=== PATIENT | male | born 1955 | race Caucasian/White ===

== ENCOUNTER → 2018-04-17 10:48 | Outpatient (REF) | payer OTHER, SELFPAY ==
[2018-04-17 12:43] LABS: COMMENT (LAB VIEW ONLY) 168.84 mg/dL; Microalb ug/mg Crea 5.6 ug/mg Cr
== END ==
LOC: NCHCN 10:48
PROVIDERS: PCP Family Medicine; Visit Provider Family Medicine
DX: E11.9 Type 2 diabetes mellitus without complications (principal)
CPT/HCPCS: 82043; 82570

== ENCOUNTER 2018-06-17 00:52 | Outpatient (CLI) | payer OTHER, SELFPAY ==
--- NOTE | 2018-06-17 08:51 | DI.RAD_ITS ---
SYMPTOM/DIAGNOSIS: CHRONIC NECK PAIN, M54.2 CERVICAL SPINE: Odontoid, AP and lateral and bilateral oblique views were obtained. There is normal alignment of the cervical spine. No acute fractures or subluxations are seen. There is mild narrowing of the C 5-6 and C 6-7 disc spaces. There are large flowing anterior vertebral osteophytes present throughout the cervical spine. There is mild narrowing of the neural foramen on the left from C 3-4 through C 6-7 and on the left at C 3-4. The odontoid is intact. The lateral masses are well aligned. The bones appear normally mineralized. IMPRESSION: Findings in the cervical spine raising the question of DISH. Degenerative disc disease cannot be excluded.
== END 2018-06-17 01:12 ==
PROVIDERS: PCP Family Medicine; Visit Provider Family Medicine
DX: M47.812 Spondylosis without myelopathy or radiculopathy, cervical region (principal); M54.2 Cervicalgia
CPT/HCPCS: 72050

== ENCOUNTER 2018-10-08 08:21 | Outpatient (CLI) | payer OTHER, SELFPAY ==
[2018-10-08 08:45] LABS: HCT 44.3 % (40.0-50.0); HGB 15.2 g/dL (13.5-17.5); Mean Corp. HGB Concentration 34.3 g/dL (32.0-36.0); Mean Corpuscular Volume 87.4 fL (80-95); Mean Platelet Volume 10.6 fL (8.0-11.0); Platelet Count 162 x1000/uL (130-400); RBC 5.07 m/cumm (4.50-6.00); RBC Distribution Width 13.6 % (11.8-14.1); White Blood Cell Count 8.61 k/cumm (4.4-10.8)
[2018-10-08 09:52] LABS: Hemoglobin A1C 7.6 % (4.5-6.2)
[2018-10-08 10:02] LABS: ALT 73 U/L (12-78); AST 48 U/L (15-37); Albumin 3.7 g/dL (3.4-5.0); Alkaline Phosphatase 104 U/L (46-116); Anion Gap 9.6 mmol/L (3-11); BUN 11 mg/dL (7-18); Bilirubin, Total 0.5 mg/dL (0.2-1.0); CO2 30.4 mmol/L (21.0-32.0); CREATININE 0.94 mg/dL (0.70-1.30); Calcium 9.1 mg/dL (8.5-10.1); Chloride 101 mmol/L (98-107); Cholesterol 104 mg/dL (50-200); Glucose 168 mg/dL (70-100); HDL Cholesterol 33 mg/dL (40-60); LDL CHOLESTEROL 45 mg/dL (<100); Potassium 3.7 mmol/L (3.5-5.1); Sodium 141 mmol/L (136-145); Total Protein 7.3 g/dL (6.4-8.2); Triglyceride 207 mg/dL (30-150)
[2018-10-08 10:18] LABS: FREE T4 0.88 ng/dL (0.76-1.46)
[2018-10-11 09:19] LABS: Thiamine (Vitamin B1), WB 121 nmol/L (70-180)
== END 2018-10-08 08:41 ==
PROVIDERS: PCP Family Medicine; Visit Provider Family Medicine
DX: E11.9 Type 2 diabetes mellitus without complications (principal); I10 Essential (primary) hypertension; R94.6 Abnormal results of thyroid function studies; E51.9 Thiamine deficiency, unspecified; K76.0 Fatty (change of) liver, not elsewhere classified
CPT/HCPCS: 36415; 80053; 80061; 83721; 85027; 83036; 84425; 84439; 84443

== ENCOUNTER 2019-01-02 05:36 | Outpatient (CLI) | payer OTHER, SELFPAY ==
[2019-01-02 10:03] LABS: Folate 5.4 ng/mL (8.6-20.0); Vitamin B12 320 pg/mL (193-986)
[2019-01-08 13:01] LABS: Testosterone, Total 229 ng/dL (240-950)
== END 2019-01-02 05:56 ==
LOC: LBO 05:36 → NCHCO 07:19
PROVIDERS: PCP Family Medicine; Visit Provider Family Medicine
DX: E53.8 Deficiency of other specified B group vitamins (principal); E29.1 Testicular hypofunction
CPT/HCPCS: 36415; 84402; 84403; 82607; 82746

== ENCOUNTER 2019-01-09 01:54 | Outpatient (CLI) | payer OTHER, SELFPAY ==
--- NOTE | 2019-01-09 09:00 | DIABASSESS_ITS ---
DESCRIPTION/ASSESSMENT: Yury Hoffmann presents with his for diabetes self management to learn to use Bydureon pen. He has had difficulty getting GLP1 inhibitor through insurances and this is the best option for him at this time. A1c 8.9 INTERVENTION: Instructed both of them on the possible side effects of Bydureon. He has reviewed the literature and agrees to proceed with this injection. His , Pily, reviewed and followed instructions for procedure for injection without difficulty. They know to call with questions or concerns. ACTION PLAN: They will follow directions to inject Bydureon every 7 days. Individual DSME/T less than 30 minutes. TIME IN: 904 OUT: 924 No DM group education series being offered at this time.
== END 2019-01-09 02:14 ==
PROVIDERS: PCP Family Medicine; Visit Provider Dietitian, Registered
DX: E11.9 Type 2 diabetes mellitus without complications (principal); Z71.3 Dietary counseling and surveillance

== ENCOUNTER 2019-02-09 05:16 | Outpatient (CLI) | payer OTHER, SELFPAY ==
[2019-02-09 09:07] LABS: Vitamin B12 598 pg/mL (193-986)
[2019-02-11 12:32] LABS: Testosterone, Total 306 ng/dL (240-950)
== END 2019-02-09 05:36 ==
PROVIDERS: PCP Family Medicine; Visit Provider Family Medicine
DX: E29.1 Testicular hypofunction (principal); E53.8 Deficiency of other specified B group vitamins
CPT/HCPCS: 36415; 84403; 82607; 82746

== ENCOUNTER 2019-03-16 09:14 | Outpatient (REF) | payer OTHER, SELFPAY | END 2019-03-16 09:34 | LOC: NCHCN 09:14 | PROVIDERS: PCP Family Medicine; Visit Provider Family Medicine | DX: E11.9 Type 2 diabetes mellitus without complications (principal) | CPT/HCPCS: 82043; 82570 ==

== ENCOUNTER 2019-03-30 01:37 | Outpatient (CLI) | payer OTHER, SELFPAY ==
[2019-03-30] MEDS: Albuterol HFA 18 GM 200 PUFF INH IH (11:14)
[2019-03-30] MEDS: Inhaler, Assist Device 1 EACH MC (11:14)
--- NOTE | 2019-04-01 11:30 | PFT_ITS ---
Date: March 30, 2019 Requesting Provider: Dr. Lora Glasgow Spirometry: Mild obstructive airways disease with no significant bronchodilator response. Lung volumes: No evidence of restriction. Diffusion capacity: Normal. Airways resistance: Normal. IMPRESSION: Mild obstructive airways disease with no significant bronchodilator response. Clinical correlation recommended. When this study was compared to previous ones from 10/12/2005, the patient has a total of 370 cc. decline in FVC; FEV-1 has remained stable.
== END 2019-03-30 01:57 ==
PROVIDERS: PCP Family Medicine; Visit Provider Family Medicine
DX: J44.9 Chronic obstructive pulmonary disease, unspecified (principal); R06.09 Other forms of dyspnea; F17.220 Nicotine dependence, chewing tobacco, uncomplicated
CPT/HCPCS: 94060; 94150; 94726; 94729

== ENCOUNTER 2019-04-17 16:35 | Observation (INO) | payer OTHER, SELFPAY ==
[2019-04-17] VITALS (45 sets, daily range): BP systolic 116–155; BP diastolic 86–104; PULSE 85–102; RESP 9–19; TEMP 36.6–37.4; O2SAT 92–98
--- NOTE | 2019-04-17 17:05 | DI.RAD_ITS ---
SYMPTOM/DIAGNOSIS: CONFUSION, SEIZURE LIKE ACTIVITY PA AND LATERAL CHEST: Comparison is made with 25 February 2018 The heart size is normal. The lungs are well inflated and clear. No infiltrate, effusion, mass or pneumothorax is seen. IMPRESSION: Negative chest x-ray.
--- NOTE | 2019-04-17 17:06 | DI.CT_ITS ---
SYMPTOM/DIAGNOSIS: LEFT SIDED NUMBNESS, BODY SHAKING, CONFUSION NONCONTRAST HEAD CT: Comparison is made with 25 February 2018. There is a large area of encephalomalacia in the right frontal region. There is mild atrophy. There is patchy low density in the white matter consistent with chronic microvascular disease. The ventricles are normal in size. There is no acute hemorrhage, acute infarct or skull fracture. Mucous retention is seen at the floors of the maxillary sinuses. The mastoid air cells appear clear. The orbits are unremarkable. IMPRESSION: Old right frontal infarct. No acute abnormality.
--- NOTE | 2019-04-17 17:11 | W.ED.GENAD ---
Discharge Plan Disposition Patient Disposition: [facility] Discharge Details Chief Complaint: CVA/TIA Clinical Impression: Seizure, TIA (transient ischemic attack), Hypomagnesemia Admit Date/Time: 04/17/19 20:03 Admit Provider: Manish Gregory Attending Provider: Manish Gregory Primary Care Provider: Lora Glasgow ED Provider: Holland Mendez Discharge Data Discharge Date/Time-TO BE ENTERED AT DEPARTURE: 04/17/19 21:37 Medical Decision Making 20:12 This is a chronically ill 63-year-old male presented to the emergency department with symptoms concerning for seizure-like activity. TIA also on the differential. His CT head along with CTA head neck was read as negative for acute ICH or CVA. Labs demonstrate a hypo-mag at 1.3. Magnesium 2 g IV given. He has no EKG changes and his troponin is negative. The remainder of his labs are unremarkable. As mentioned above his symptoms are concerning for seizure and he does have evidence of a prior right sided frontal lobe infarct chronic in nature similar to his previous CT scan in February. I discussed case with Dr. Saldivar from [facility] [place] who agrees that based on the fact his symptoms are nearly identical to those back in February seizure is more likely. He would recommend starting anticonvulsant Keppra and admitting to telemetry for observation. Unable to obtain MRI with contrast or echo tomorrow as they are unavailable. I discussed case with hospitalist here at [facility] who will admit. HPI General Date/Time Provider Initiated Documentation: 04/17/19 16:50. HPI Narrative: Patient is a 63-year-old male with a significant past medical history for question TIA, coronary artery disease, COPD, diabetes type 2, hypertension, hyperlipidemia, 1 pack/day smoker and obesity who presents to the emergency department with abrupt onset of left-sided facial tingling and numbness followed by periods of confusion and body shaking reported by his roughly 45 minutes prior to arrival. Symptoms lasted for roughly 2 to 4 minutes. Patient had no postictal. Patient denies any current symptoms. He had no chest pain however did report some shortness of breath while his symptoms were occurring. He states that he has full recollection of the event with the exception of roughly 1 to 2 minutes. Patient's states that his eyes rolled in the back of his head during the peak of his symptoms. He had mumbled speech at that time. No urinary or fecal incontinence. Patient has had no recent illness or fever. He denies any neck pain or stiffness. Related Data Home Medications Medication Instructions Recorded Confirmed aspirin [Aspir-81] 81 mg PO DAILY 03/20/13 04/17/19 metoprolol succinate [Toprol XL] 200 mg PO DAILY 03/20/13 04/17/19 Dexilant 30 mg PO DAILY tab-cap 09/02/17 04/17/19 atorvastatin 40 mg PO DAILY 02/25/18 04/17/19 fluoxetine 40 mg PO DAILY 02/25/18 04/17/19 hydrocodone-acetaminophen [Vicodin 2 ea PO Q6H PRN PRN 02/25/18 04/17/19 HP] metformin 1,000 mg PO DAILY 02/25/18 04/17/19 albuterol sulfate 90 mcg/actuation 2 puff INHALATION Q6H PRN gm 07/30/18 04/17/19 aerosol inhaler betamethasone dipropionate 0.05 % 1 applic TP BID PRN 07/30/18 04/17/19 topical cream cholecalciferol (vitamin D3) 2,000 2,000 unit PO DAILY 07/30/18 04/17/19 unit capsule cyanocobalamin (vitamin B-12) 2,000 mcg PO DAILY 07/30/18 04/17/19 2,000 mcg tablet morphine 15 mg tablet,extended 15 mg PO DAILY tab 07/30/18 04/17/19 release pregabalin 100 mg capsule 100 mg PO BID 07/30/18 04/17/19 ranitidine HCl 300 mg capsule 300 mg PO DAILY 07/30/18 04/17/19 exenatide microspheres [Bydureon] 2 mg SUBCUT QWEEK 04/17/19 04/17/19 duvrjdaqpxs-johvedrwt-[id number] 1 inh INHALATION DAILY 04/17/19 04/17/19 [Trelegy Ellipta] folic acid 1 mg PO DAILY 04/17/19 04/17/19 Allergies Allergy/AdvReac Type Severity Reaction Status Date / Time hydrochlorothiazide Allergy Mild Unverified 04/17/19 16:49 lisinopril Allergy Mild Unverified 04/17/19 16:49 Penicillins Allergy Unknown as child Unverified 04/17/19 16:49 unsure of reaction General Stated Complaint: CVA/TIA RAMILA: 2 Review of Systems Constitutional Denies anorexia, Denies body ache(s), Denies chills, Denies fatigue, Denies fever(s), Denies headache(s), Denies lethargy, Denies malaise, Denies night sweats, Denies weakness and Denies weight gain Eyes Denies blind spots, Denies blurry vision, Denies change in vision, Denies diplopia and Denies loss of vision ENT Denies vertigo, Denies dizziness, Denies headache(s) and Denies neck pain Cardiovascular Denies chest pain, Denies diaphoresis, Denies syncope, Denies edema, Denies palpitations and Denies dyspnea Respiratory Denies cough, Denies dyspnea and Denies wheezing Gastrointestinal Denies abdominal pain Genitourinary Denies dysuria and Denies flank pain Musculoskeletal Denies joint swelling, Denies muscle weakness, Denies neck pain, Reports numbness, Denies stiffness and Reports tingling Integumentary/Breasts Denies rash Neurologic Reports abnormal speech, Denies vertigo, Denies dizziness, Denies syncope, Denies headache(s), Reports focal weakness, Denies loss of vision, Reports numbness, Reports sensory deficit, Reports tingling, Reports paresthesias and Denies weakness Endocrine Denies fatigue and Denies palpitations Allergic/Immunologic Denies wheezing [facility] Medical History Barretts esophagus (Chronic) CAD (coronary artery disease) (Chronic) COPD (chronic obstructive pulmonary disease) (Chronic) Depression (Chronic) Diabetes mellitus (Chronic) Elevated TSH (Acute) Fatty infiltration of liver (Chronic) Hip pain, right (Acute) HTN (hypertension) (Chronic) Hx of adenomatous colonic polyps (Acute) Hx of deep venous thrombosis (Acute) Hx of gastric ulcer (Acute) Hyperlipidemia (Chronic) Insomnia (Chronic) Low testosterone (Acute) Lumbar back pain (Chronic) Morbid obesity (Chronic) Neck pain (Acute) EVIE (obstructive sleep apnea) (Chronic) TIA (transient ischemic attack) (Acute) Tobacco use (Chronic) Vitamin B1 deficiency (Acute) Surgical History Colonoscopy - MAC (09/30/17) EGD - MAC (09/30/17) H/O vasectomy (Acute) Post-laminectomy syndrome (Acute) S/P repair of hydrocele (Acute) Social History Smoking/Tobacco Use Status: Current every day Alcohol Intake: current Alcohol Intake frequency: a few times a week Drug use: Occasionally Substance use type: marijuana Household members: spouse Housing: apartment Number of Children: 3 What type of physical activity do you participate in: none Do you feel safe at home: Yes Do you feel safe in your relationship?: Yes Exam Const General: cooperative and no acute distress Nutritional Appearance: obese Orientation: alert, awake and oriented x3 HENMT Head: normal to inspection Mouth: oral mucosae normal Throat: posterior oropharynx normal and uvula midline Eyes General: appearance normal, both eyes and all related structures Visual Ramos: normal visual ramos by confrontation Pupils: PERRL EOM: EOM intact bilaterally Neck Neck: normal visual inspection, full ROM, no lymphadenopathy and no meningeal signs Carotids: normal carotid upstroke Resp Effort & Inspection: normal respiratory effort Auscultation: clear to auscultation bilaterally Cardio Jugular venous pressure: no JVD Rate: regular rate Rhythm: regular rhythm Heart Sounds: S1 normal and S2 normal Pulses: normal peripheral pulses GI Inspection: normal to inspection Palpation: soft Skin General skin exam: no rashes or lesions noted Neuro Cranial Nerves: CN's II-XI intact bilaterally, PERRL, accommodation normal, EOM intact bilaterally, no nystagmus, facial strength normal, tongue midline and hearing normal Cognition: normal cognition Speech: speech normal Motor: muscle tone normal throughout Sensory Exam: no sensory deficits noted Extrem General: normal to inspection and full ROM Course Vital Signs Temperature 36.6 C 04/17/19 16:41 Pulse 88 04/17/19 16:41 Respiratory Rate 16 04/17/19 16:41 Blood Pressure 147/89 H 04/17/19 16:41 Pulse Oximetry 97 04/17/19 16:41 Temperature 36.6 C 04/17/19 16:41 Temperature Source Temporal Artery Scan 04/17/19 16:41 Pulse 88 04/17/19 16:41 Respiratory Rate 16 04/17/19 16:41 Respiratory Effort Non-Labored 04/17/19 16:48 Blood Pressure 147/89 H 04/17/19 16:41 Blood Pressure Position Supine 04/17/19 16:41 Pulse Oximetry 97 04/17/19 16:41 Oxygen Delivery Method Room Air 04/17/19 16:41 Oxygen Flow Rate 0 04/17/19 16:41 Pain Level 0 04/17/19 16:41
[2019-04-17 17:21] LABS: Abs Immature Grans 0.01 k/cumm (0.0-0.09); Absolute Basophil Count 0.05 k/cumm (0.0-0.2); Absolute Eosinophil Count 0.13 k/cumm (0.0-0.7); Absolute Lymphocyte Count 2.66 k/cumm (1.2-3.4); Absolute Monocyte Count 0.65 k/cumm (0.11-0.7); Absolute Neutrophil Count 3.59 k/cumm (1.2-6.7); Basophils % 0.7; Eosinophils % 1.8; HCT 41.3 % (40.0-50.0); HGB 13.9 g/dL (13.5-17.5); Immature Grans % 0.1; Lymphocytes % 37.5; Mean Corp. HGB Concentration 33.7 g/dL (32.0-36.0); Mean Corpuscular Hemoglobin 27.1 pg (27.0-33.0); Mean Corpuscular Volume 80.5 fL (80-95); Mean Platelet Volume 9.9 fL (8.0-11.0); Monocytes % 9.2; Neutrophils % 50.7; Platelet Count 192 x1000/uL (130-400); RBC 5.13 m/cumm (4.50-6.00); RBC Distribution Width 14.5 % (11.8-14.1); White Blood Cell Count 7.09 k/cumm (4.4-10.8)
--- NOTE | 2019-04-17 17:24 | DI.VRAD_ITS ---
EXAM: CT Head Without Contrast EXAM DATE/TIME: 04/17/2019 5:07 PM CLINICAL HISTORY: 63 years old, male; Other: Confusion, seizure-like activity TECHNIQUE: Imaging protocol: Computed tomography of the head without contrast. Other technique: STROKE PROTOCOL was implemented. COMPARISON: CT HEAD WITHOUT STROKE PROTOCOL 02/25/2018 4:38 PM FINDINGS: Brain: Old right frontal cortical infarct. This also involves the anterior aspect of the right insular cortex. There is nonspecific white matter disease, likely related to chronic ischemic demyelination.No intracranial hemorrhage is seen. No acute arterial territory stroke is noted. Ventricles: Normal. No ventriculomegaly. Bones/joints: Unremarkable. No acute fracture. Sinuses: Mucosal thickening in the bilateral maxillary sinuses. No air-fluid levels. Remaining paranasal air sinuses are normal. Mastoid air cells: Visualized mastoid air cells are well aerated. No mastoid effusion. Soft tissues: Unremarkable. IMPRESSION: 1. Old right frontal cortical infarct. 2. No acute finding ASSESSMENT: ASPECTS (Ayla Stroke Program Early CT Score) is 10 Dictated and Authenticated by: Reynold Jara MD. Ordering:JOSSELIN Lino MD
[2019-04-17 17:37] LABS: ALT 46 U/L (16-63); AST 34 U/L (15-37); Albumin 3.5 g/dL (3.4-5.0); Alkaline Phosphatase 83 U/L (46-116); Anion Gap 9.1 mmol/L (3-11); BUN 10 mg/dL (7-18); Bilirubin, Total 0.5 mg/dL (0.2-1.0); CO2 29.9 mmol/L (21.0-32.0); CREATININE 0.97 mg/dL (0.70-1.30); Calcium 8.2 mg/dL (8.5-10.1); Chloride 103 mmol/L (98-107); Glucose 109 mg/dL (70-100); Magnesium 1.3 mg/dL (1.8-2.4); Potassium 3.7 mmol/L (3.5-5.1); Sodium 142 mmol/L (136-145); Total Protein 7.2 g/dL (6.4-8.2)
[2019-04-17 17:39] LABS: Troponin I < 0.05 ng/mL (0.00-0.06)
--- NOTE | 2019-04-17 17:41 | DI.VRAD_ITS ---
EXAM: XR Chest, 2 Views EXAM DATE/TIME: 04/17/2019 5:07 PM CLINICAL HISTORY: 63 years old, male; Other: Confusioin, seizure like activity TECHNIQUE: Imaging protocol: XR of the chest, 2 views. COMPARISON: CR CHEST 2 VIEWS PA,LAT 02/25/2018 4:50 PM FINDINGS: Lungs: Unremarkable. No consolidation. Pleural space: Unremarkable. No pleural effusion. No pneumothorax. Heart/Mediastinum: Unremarkable. No cardiomegaly. Bones/joints: Unremarkable. IMPRESSION: No acute findings. Dictated and Authenticated by: Reynold Jara MD. Ordering:JOSSELIN Lino MD
[2019-04-17] MEDS: Normal Saline Flush 10 ML SYR IVP (18:33)
[2019-04-17] MEDS: MAGNESIUM SULFATE 2 GM/50 ML BAG IVPB ×2 (18:33→23:39)
--- NOTE | 2019-04-17 18:40 | DI.CT_ITS ---
SYMPTOM/DIAGNOSIS: LEFT SIDED FACIAL NUMBNESS, LOC, CONFUSION CT ANGIOGRAPHY OF THE HEAD AND NECK: CT angiography was performed with multi slice acquisition and multi planar and 3D reconstruction. Common carotid arteries show a normal diameter. There is mild calcification at the common carotid bulbs and proximal internal and external carotid arteries. There is mild dilatation of the proximal left internal carotid artery. There is no evidence of significant stenosis. The vertebral arteries are normal in diameter. The [place] vasculature appears intact. A large old right frontal infarct is again noted. IMPRESSION: Mild dilatation of the proximal left internal carotid artery. No evidence of occlusion, significant stenosis or dissection in the head or neck.
[2019-04-17] MEDS: Omnipaque 350 MG/ML 100 ML BTL IJ (19:05)
--- NOTE | 2019-04-17 19:17 | DI.VRAD_ITS ---
EXAM: CT Angiography Head With Contrast EXAM DATE/TIME: 04/17/2019 6:41 PM CLINICAL HISTORY: 63 years old, male; Patient HX: Left-sided facial numbness, loc, confusion TECHNIQUE: Imaging protocol: Computed tomography angiography of the head with intravenous contrast. 3D rendering: MIP reconstructed images were created and reviewed. COMPARISON: CT HEAD FOR STROKE PROTOCOL 04/17/2019 5:16 PM FINDINGS: Right internal carotid artery: Minimal atherosclerosis at the right cavernous internal carotid artery without hemodynamic sequela. Right anterior cerebral artery: Unremarkable. No occlusion or significant stenosis. No aneurysm. Right middle cerebral artery: Unremarkable. No occlusion or significant stenosis. No aneurysm. Right posterior cerebral artery: Unremarkable. No occlusion or significant stenosis. No aneurysm. Right vertebral artery: Unremarkable. No occlusion or significant stenosis. No aneurysm. Left internal carotid artery: Minimal atherosclerosis at the left cavernous internal carotid artery without hemodynamic sequela. Left anterior cerebral artery: Unremarkable. No occlusion or significant stenosis. No aneurysm. Left middle cerebral artery: Unremarkable. No occlusion or significant stenosis. No aneurysm. Left posterior cerebral artery: Unremarkable. No occlusion or significant stenosis. No aneurysm. Left vertebral artery: Unremarkable. No occlusion or significant stenosis. No aneurysm. Basilar artery: Unremarkable. No occlusion or significant stenosis. No aneurysm. HEAD: Brain: Old right frontal cortical infarct. IMPRESSION: No significant stenosis of the vessels. EXAM: CT Angiography Neck With Contrast EXAM DATE/TIME: 04/17/2019 6:41 PM CLINICAL HISTORY: 63 years old, male; Patient HX: Left-sided facial numbness, loc, confusion TECHNIQUE: Imaging protocol: Computed tomographic angiography images of the neck with intravenous contrast using CT angiography protocol. 3D rendering: MIP reconstructed images were created and reviewed. COMPARISON: CT HEAD FOR STROKE PROTOCOL 04/17/2019 5:16 PM FINDINGS: VASCULATURE: Right common carotid artery: Unremarkable. No stenosis. No dissection or occlusion. Right internal carotid artery: Minimal atherosclerosis at the origin of the right internal carotid artery without hemodynamic sequela. Right external carotid artery: Unremarkable. No occlusion or stenosis of the origin. Right vertebral artery: Unremarkable. No stenosis. No dissection or occlusion. Left common carotid artery: Unremarkable. No stenosis. No dissection or occlusion. Left internal carotid artery: Minimal atherosclerosis at the origin of the left internal carotid artery without hemodynamic sequela. Aneurysmal dilation of the proximal left internal carotid artery up to 1.6 cm. Left external carotid artery: Minimal atherosclerosis at the origin of the left external carotid artery without hemodynamic sequela. Left vertebral artery: Up to 20% stenosis of the origin of the left vertebral artery. Subclavian arteries: Minimal atherosclerosis at the origin of the right subclavian artery without hemodynamic sequela. Minimal atherosclerosis at the origin of the left subclavian artery without hemodynamic sequela. NECK: Bones/joints: No acute fracture. Soft tissues: Normal. No significant soft tissue swelling. IMPRESSION: 1. 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 2. No significant stenosis in the vessels. COMMENT: Reference per NASCET criteria for degree of stenosis: Mild: less than 50% stenosis. Moderate: 50-69% stenosis. Severe: 70-94% stenosis. Near occlusion: 95-99% stenosis. Dictated and Authenticated by: Reynold Jara MD. Ordering:JOSSELIN Lino MD
--- NOTE | 2019-04-17 19:45 | NUR.NOTE ---
sandwich provided with water Nursing Note:
[2019-04-17] MEDS: levETIRAcetam 250 MG TAB 1000 MG PO (20:23)
[2019-04-17] MEDS: Normal Saline 1,000 ML 85 ML IV (21:00)
[2019-04-18] VITALS (7 sets, daily range): BP systolic 123–163; BP diastolic 91–108; PULSE 80–89; RESP 16–18; TEMP 36.3–37.1; O2SAT 94–96
--- NOTE | 2019-04-18 00:02 | HPE_ITS ---
Date of service: 04/17/19 Time of Service: 23:58 Assessment and Plan (1) Seizure: Current visit: Yes Status: Acute begin Keppra, he was loaded w/ 1000 mg and now will be on Keppra 500 mg BID; no EEG is available on the weekend, however further outpatient evaluation can be obtained upon discharge and should include EEG, neurology follow up and MRI of brain. (2) History of CVA (cerebrovascular accident): Current visit: Yes Status: Acute patient is already on a statin and take ASA 81 mg daily. I will check his A1c and lipid profile to assess control of his DM and his cholesterol but will continue his current regimen for now and leave it up to his PCP and neurology to make any changes as an outpatient. (3) Diabetes mellitus: Current visit: No Status: Chronic continue his home regimen for now. check A1c in the a.m.; will monitor his glucos AC/HS and cover w/ low dose sliding scale Novolog. Qualifiers: Diabetes mellitus complication status: without complication Diabetes mellitus termite exterminator insulin use: without termite exterminator use Diabetes mellitus type: type 2 Qualified Code(s): E11.9 - Type 2 diabetes mellitus without complications (4) Hypomagnesemia: Current visit: Yes Status: Acute patient given parenteral magnesium in ER and repeat dose given on admis ramiro. will start oral replacement in the a.m. and repeat his levels in a.m. (5) HTN (hypertension): Current visit: No Status: Chronic continue home meds of Toprol XL Qualifiers: Hypertension type: essential hypertension Qualified Code(s): I10 - Ess ential (primary) hypertension (6) Barretts esophagus: Current visit: No Status: Chronic continue home meds of Dexilant and Ranitidine History of Present Illness Chief Complaint: seizure Narrative: 63-year-old male with a history of type 2 diabetes mellitus, hypertension, COPD, hyperlipidemia, chronic back pain due to DJD presents with recurrent seizure-like symptoms. He says this is been going on 5 or 6 times over the past year. He will develop left facial quivering that will last for 3 to 4 minutes and today it progressed into an episode of sonorous respirations with loss of consciousness and generalized jerking of his arms and legs not associated with any urinary or bowel incontinence and not associated with any biting of his lips or tongue. Says he was at home tonight watching TV while his was preparing dinner around 4:30 PM when this began. Says the episode was witnessed by his and according to his lasted about 2 to 4 minutes. This is followed by amnestic period afterwards. He states he is been evaluated by his primary care provider Dr. Lawrence was done a work-up for TIA/CVA. He has had CT scans of the brain as well as carotid ultrasound and echocardiograms in the past. Noncontrast CT scan of the brain dating back to February 25, 2018 demonstrated large area of encephalomalacia involving the right frontal parietal lobe consistent with an old infarct along with cerebral atrophy and small vessel ischemic disease. Carotid ultrasound dated March 06, 2018 showed no significant stenosis. Echocardiogram dated March 14, 2018 demonstrated mild LVH with normal left ventricular systolic function with an ejection fraction of 55 to 60%. RV size and function was normal. Today's work-up in the emergency room include a noncontrast CT scan of the brain that again demonstrated old right frontal cortical infarct. But no acute findings. CT angiogram of the head with contrast as well as the neck was performed and showed no significant stenosis of the cervical or intracerebral vessels. Mr. Holland Mendez, physician insurance claims assistant in the emergency room, spoke with Dr. Saldivar from [facility] neurology regarding th is patient's case. And concurred that the patient's symptoms most likely is secondary to seizures probably related to his old right sided frontal infarct. He recommended initiation of antiepileptic drug Keppra and admitting the patient overnight on telemetry for observation. He also recommend following up with a MRI of the brain with contrast however this will be unavailable over the weekend will have to be scheduled as an outpatient. Patient is insisting that he will be leaving the hospital in the morning and only agreed to stay overnight because he thought he was getting the MRI scan tomorrow. Review of Systems Constitutional Reports system reviewed and no additional complaints, except as docu [facility] Medical History Barretts esophagus (Chronic) CAD (coronary artery disease) (Chronic) COPD (chronic obstructive pulmonary disease) (Chronic) Depression (Chronic) Diabetes mellitus (Chronic) Elevated TSH (Acute) Fatty infiltration of liver (Chronic) Hip pain, right (Acute) HTN (hypertension) (Chronic) Hx of adenomatous colonic polyps (Acute) Hx of deep venous thrombosis (Acute) Hx of gastric ulcer (Acute) Hyperlipidemia (Chronic) Insomnia (Chronic) Low testosterone (Acute) Lumbar back pain (Chronic) Morbid obesity (Chronic) Neck pain (Acute) EVIE (obstructive sleep apnea) (Chronic) TIA (transient ischemic attack) (Acute) Tobacco use (Chronic) Vitamin B1 deficiency (Acute) Surgical History Colonoscopy - MAC (09/30/17) EGD - MAC (09/30/17) H/O vasectomy (Acute) Post-laminectomy syndrome (Acute) S/P repair of hydrocele (Acute) Social History Smoking/Tobacco Use Status: Current every day Alcohol Intake: current Alcohol Intake frequency: a few times a week Drug use: Occasionally Substance use type: marijuana Household members: spouse Housing: apartment Number of Children: 3 What type of physical activity do you participate in: none Do you feel safe at home: Yes Do you feel safe in your relationship?: Yes Meds Home Medications Medication Instructions Recorded Confirmed Type aspirin [Aspir-81] 81 mg PO DAILY 03/20/13 04/17/19 History metoprolol succinate [Toprol XL] 200 mg PO DAILY 03/20/13 04/17/19 History Dexilant 30 mg PO DAILY tab-cap 09/02/17 04/17/19 History atorvastatin 40 mg PO DAILY 02/25/18 04/17/19 History fluoxetine 40 mg PO DAILY 02/25/18 04/17/19 History hydrocodone-acetaminophen [Vicodin 2 ea PO Q6H PRN PRN 02/25/18 04/17/19 History HP] metformin 1,000 mg PO DAILY 02/25/18 04/17/19 History albuterol sulfate 90 mcg/actuation 2 puff INHALATION Q6H PRN gm 07/30/18 04/17/19 History aerosol inhaler betamethasone dipropionate 0.05 % 1 applic TP BID PRN 07/30/18 04/17/19 History topical cream cholecalciferol (vitamin D3) 2,000 2,000 unit PO DAILY 07/30/18 04/17/19 History unit capsule cyanocobalamin (vitamin B-12) 2,000 mcg PO DAILY 07/30/18 04/17/19 History 2,000 mcg tablet morphine 15 mg tablet,extended 15 mg PO DAILY tab 07/30/18 04/17/19 History release pregabalin 100 mg capsule 100 mg PO BID 07/30/18 04/17/19 History ranitidine HCl 300 mg capsule 300 mg PO DAILY 07/30/18 04/17/19 History exenatide microspheres [Bydureon] 2 mg SUBCUT QWEEK 04/17/19 04/17/19 History [id number] 1 inh INHALATION DAILY 04/17/19 04/17/19 History [Trelegy Ellipta] folic acid 1 mg PO DAILY 04/17/19 04/17/19 History Allergies Allergy/AdvReac Type Severity Reaction Status Date / Time hydrochlorothiazide Allergy Mild Unverified 04/17/19 16:49 lisinopril Allergy Mild Unverified 04/17/19 16:49 Penicillins Allergy Unknown as child Unverified 04/17/19 16:49 unsure of reaction Exam Const General: cooperative, no acute distress and well groomed Nutritional Appearance: well nourished and overweight Orientation: alert, awake and oriented x3 HENMT Head: normal to inspection, no palpable skull fracture, normocephalic and atraumatic Ears: external ears normal and TM's normal bilaterally General nose exam: external nose normal, nares normal and no nasal discharge Face and sinus: normal facial exam, sinuses nontender and face symmetric Mouth: oral mucosae normal, lip normal, tongue normal, oropharynx normal and moist mucous membranes Teeth and gingiva: dentures (upper dentures only) Throat: posterior oropharynx normal and uvula midline Eyes General: appearance normal, both eyes and all related structures Visual Ramos: normal visual ramos by confrontation Alignment and Position: alignment normal Periorbital: periorbital findings normal Eyelids: eyelids normal Conjunctivae: conjunctivae normal Sclera: sclerae normal Cornea: corneas normal Pupils: PERRL, normal by confrontation and accommodation normal EOM: EOM intact bilaterally Direct ophthalmoscopy: normal light reflex, no photophobia, no papilledema, fundi normal bilaterally and anterior chamber normal Neck Neck: normal visual inspection, full ROM, no lymphadenopathy, trachea midline and supple Thyroid: thyroid normal Carotids: normal carotid upstroke Lymphatic: no lymphadenopathy noted Chest Chest: normal inspection of the chest and normal palpation of entire chest wall Resp Effort & Inspection: normal respiratory effort and able to speak in complete sentences Auscultation: clear to auscultation bilaterally Percussion: percussion normal Cardio Jugular venous pressure: no JVD Palpation: normal PMI Rate: regular rate Rhythm: regular rhythm Heart Sounds: S1 normal, S2 normal and normal, physiologic split S2 Pulses: normal peripheral pulses GI Inspection: normal to inspection Palpation: soft, no hepatosplenomegaly and nontender Percussion: normal to percussion Auscultation: normal bowel sounds Skin General skin exam: no rashes or lesions noted, elasticity normal and turgor normal Lesions: no lesions Rashes: no rashes Trauma: no lacerations or abrasions Hair: normal Nails: normal Neuro General: alert, awake, oriented x3, moves all extremities and no focal motor deficits Cranial Nerves: CN's II-XI intact bilaterally, PERRL, accommodation normal, EOM intact bilaterally, no nystagmus, facial strength normal, tongue midline, gag reflex normal, hearing normal, able to rotate head bilaterally, able to elevate shoulders bilaterally and Symmetric palate elevation Cognition: normal cognition Speech: speech normal Motor: muscle tone normal throughout, strength 5/5 throughout, no pronator drift, no movement abnormalities noted and no fasciculations Sensory Exam: no sensory deficits noted Plantar Reflexes: Downgoing: bilateral Pupils: Normal pupillary reactivity/response: bilateral Extrem General: normal to inspection, full ROM, normal capillary refill, no joint enlargement, no clubbing, cyanosis or edema and no calf tenderness bilaterally Psych Appearance: grossly normal Mental Status: mental status grossly normal Speech and Movement: speech and movement normal Mood: congruent mood Affect: normal affect Attitude: cooperative Thought Process: normal Thought Content: normal Insight: insight good Judgment: judgment good Results Imaging Imaging Studies: CT angiogram of brain and neck: HEAD: Brain: Old right frontal cortical infarct. IMPRESSION: No significant stenosis of the vessels. Labs : 04/17/19 17:10 04/17/19 17:10 Laboratory Results - last 24 hr 04/17/19 04/17/19 17:10 17:10 WBC 7.09 RBC 5.13 Hgb 13.9 Hct 41.3 MCV 80.5 MCH 27.1 MCHC 33.7 RDW 14.5 H Plt Count 192 MPV 9.9 Immature Gran % 0.1 Neutrophils % 50.7 Lymphocytes % 37.5 Monocytes % 9.2 Eosinophils % 1.8 Basophils % 0.7 Absolute Neutrophils 3.59 Absolute Lymphocytes 2.66 Absolute Monocytes 0.65 Absolute Eosinophils 0.13 Absolute Basophils 0.05 Sodium 142 Potassium 3.7 Chloride 103 Carbon Dioxide 29.9 Anion Gap 9.1 BUN 10 Creatinine 0.97 Estimated GFR/1.73 m2 >= 60.00 Glucose 109 H Calcium 8.2 L Magnesium 1.3 L Total Bilirubin 0.5 AST 34 ALT 46 Alkaline Phosphatase 83 Troponin I < 0.05 Total Protein 7.2 Albumin 3.5 Last Vital Signs Temp 37.4 C 04/17/19 21:59 Pulse 102 H 04/17/19 22:49 Resp 17 04/17/19 21:59 BP 127/93 H 04/17/19 21:59 Pulse Ox 96 04/17/19 21:59
[2019-04-18] MEDS: Pregabalin 100 MG CAP PO ×2 (01:17→08:44)
[2019-04-18 08:00] LABS: Hemoglobin A1C 6.5 % (4.5-6.2)
[2019-04-18 08:05] LABS: Anion Gap 8.9 mmol/L (3-11); BUN 11 mg/dL (7-18); CO2 28.1 mmol/L (21.0-32.0); CREATININE 0.88 mg/dL (0.70-1.30); Calcium 7.9 mg/dL (8.5-10.1); Chloride 106 mmol/L (98-107); Glucose 94 mg/dL (70-100); Magnesium 1.9 mg/dL (1.8-2.4); Potassium 3.4 mmol/L (3.5-5.1); Sodium 143 mmol/L (136-145); TSH (W/Ref FT4) 3.32 uIU/mL (0.36-3.74)
[2019-04-18 08:17] LABS: Calculated LDL 37 mg/dL; Cholesterol 97 mg/dL (50-200); HDL Cholesterol 28 mg/dL (40-60); Triglyceride 164 mg/dL (30-150)
[2019-04-18] MEDS: Metoprolol CR 100 MG TABCR 200 MG PO (08:42)
[2019-04-18] MEDS: FLUoxetine 20 MG CAP 40 MG PO (08:43)
[2019-04-18] MEDS: Atorvastatin 40 MG TAB PO (08:43)
[2019-04-18] MEDS: metFORMIN C.R. 500 MG TABCR 1000 MG PO (08:44)
[2019-04-18] MEDS: Magnesium Gluconate 500 MG TAB PO (08:45)
[2019-04-18] MEDS: Folic Acid 1 MG TAB PO (08:45)
[2019-04-18] MEDS: Cholecalciferol (Vitamin D3) 1,000 UNIT TAB 2000 UNITS PO (08:45)
[2019-04-18] MEDS: Cyanocobalamin 500 MCG TAB 2000 MCG PO (08:46)
[2019-04-18] MEDS: levETIRAcetam 250 MG TAB 500 MG PO (09:02)
[2019-04-18] MEDS: Aspirin E.C. 81 MG TABEC PO (09:39)
[2019-04-18] MEDS: Dexlansoprazole 30 MG CAP PO (10:33)
[2019-04-18] MEDS: Magnesium Oxide 400 MG TAB 800 MG PO (10:33)
[2019-04-18] MEDS: Potassium Chloride 20 MEQ TABCR 40 MEQ PO (10:34)
[2019-04-18] MEDS: Insulin Aspart 300 UNITS/3 ML PEN SC (11:57)
--- NOTE | 2019-04-18 12:48 | W.PM.DS.N ---
Date of service: 04/18/19 Time of Service: 13:04 DS: Diagnosis Discharge Diagnosis (1) Seizure: Status: Acute (2) History of CVA (cerebrovascular accident): Status: Acute (3) Diabetes mellitus: Status: Chronic (4) Hypomagnesemia: Status: Acute (5) HTN (hypertension): Status: Chronic (6) Barretts esophagus: Status: Chronic Discharge Plan Disposition Patient Disposition: HOME Condition: Stable Discharge Details Chief Complaint: CVA/TIA Clinical Impression: Seizure, TIA (transient ischemic attack), Hypomagnesemia Reason For Visit: ?SEIZURE VS TIA Admit Date/Time: 04/17/19 20:03 Admit Provider: Manish Gregory Attending Provider: Manish Gregory Primary Care Provider: Lora Glasgow ED Provider: Holland Mendez Hospital Course Hospital Course: Chief Complaint: Altered Mental Status HPI: 63 year old man with a prior history of DM, ongoing tobacco use, and prior CVA by CT, admitted from [facility] Emergency Department following an acutely altered mental status. Mr. Hoffmann has a Past Medical Historysignificant for DM, HTN, COPD, Dyslipidemia, Chronic Back Pain in the setting of DJD, and known significant tobacco abuse. The patient also has evidence of an old right frontal infarct by CT performed in the ED. He initially presented to the ED with complaints of a left facial 'twitching', followed by an episode of sonorous respiration and unresponsiveness. Although also described as a LOC with generalized jerking of upper and lower extremities, Mr. Hoffmann actually reports being completely aware and hearing his attempting to rouse him - just unable to respond subjectively. There was a reported period of forgetfulness after the event by review of admission HPI, but the patient specifically refutes a post-ictal period. Interestingly, the patient has reportedly experienced similiar symptoms in the past year, with work-up that included Carotid Ultrasound (02/2019 - without stenosis), ECHO (normal), and CT of the brain that showed an old right frontoparietal lobe infarct. Initial work-up in the ED showed the same previously noted old infarct, and CTA of the neck showed no evidence of stenosis. Following discussion with Neurology by the ED, Mr. Hoffmann was initiated on Anti-epileptic Medication with Keppra, and admitted for further evaluation. This morning the patient is back to his baseline and requesting to go home without any further work-up. Also, unfortunately as this is a holiday weekend, there is no access to MRI, Ultrasound, or ECHO over the next 3 days. Plan is to continue Keppra, change aspirin to Clopidogrel, Hold SSRI therapy due to interaction with Plavix, and discharge with outpatient MRI and Holter, with further recommendations for an EEG, ZIO monitoring and neurology follow-up. He will also be continued on his high potency statin and PPI therapy. Mr. Hoffmann was counseled on tobacco cessation. The patient appears stable, but obviously without ability for adequate testing prior to discharge - as patient is eager to go home and would like to do so today, will discharge with the above changes. Home Meds and New Rx's Prescriptions: New levetiracetam [Keppra] 500 mg Tablet 500 mg PO BID Qty: 60 RF: 0 Nicotrol 10 mg Cartridge 1 inh inhalation Q2H PRN PRN (Reason: nicotine cravings) Qty: 168 RF: 0 clopidogrel 75 mg tablet 75 mg PO DAILY Qty: 30 RF: 0 Continued ranitidine HCl 300 mg capsule 300 mg PO DAILY RF: 0 betamethasone dipropionate 0.05 % cream 1 applic TP BID PRNRF: 0 morphine 15 mg tablet extended release 15 mg PO DAILY RF: 0 pregabalin [Lyrica] 100 mg capsule 100 mg PO BID RF: 0 cholecalciferol (vitamin D3) 2,000 unit capsule 2,000 unit PO DAILY RF: 0 cyanocobalamin (vitamin B-12) 2,000 mcg tablet 2,000 mcg PO DAILY RF: 0 Dexilant 30 MG capsule,biphase delayed releas 30 mg PO DAILY RF: 0 metoprolol succinate [Toprol XL] 200 MG tablet extended release 24 hr 200 mg PO DAILY RF: 0 atorvastatin 40 MG tablet 40 mg PO DAILY RF: 0 metformin 500 MG tablet extended release 24hr 1,000 mg PO DAILY RF: 0 hydrocodone-acetaminophen [Vicodin HP] 1 EACH tablet 2 ea PO Q6H PRN PRNRF: 0 albuterol sulfate [ProAir HFA] 90 mcg/actuation HFA aerosol inhaler 2 puff Inhalation Q6H PRNRF: 0 folic acid 1 mg Tablet 1 mg PO DAILY RF: 0 Bydureon 2 mg/0.65 mL Pen Injector 2 mg SUBCUT QWEEK RF: 0 Trelegy Ellipta 100-62.5-25 mcg Blister With Device 1 inh INHALATION DAILY RF: 0 Discontinued aspirin [Aspir-81] 81 MG tablet,delayed release (DR/EC) 81 mg PO DAILY RF: 0 fluoxetine 40 MG capsule 40 mg PO DAILY RF: 0 Discharge Instructions Referrals: Orly Fernandez MD [ [facility] STAFF PHYSICIAN] - Activity:: No Strenuous Activity Equipment/Supplies:: No Equipment Needed Diet:: Carb Counting Discharge Orders Discharge Orders: Discharge Order (Routine); Ordered 04/18/19 Ordered By: Agus Lucia Other Ambulatory Orders: MR brain wo (Routine) Location: None Selected Ordered By: Agus Lucia Holter Monitor (Outpt) (ONCE) Location: None Selected Ordered By: Agus Lucia DS: Data Vitals/I&O Vitals and I&O: Vital Signs Temperature 36.5 C 04/18/19 11:20 Temperature Source Skin 04/18/19 11:20 Pulse 89 04/18/19 11:20 Pulse Rhythm Regular 04/17/19 21:59 Pulse 90 04/17/19 20:31 Respiratory Rate 18 04/18/19 11:20 Respiratory Effort 04/17/19 21:59 Respiratory Depth Normal 04/17/19 21:59 Respiratory Pattern Normal 04/17/19 21:59 Blood Pressure 158/96 H 04/18/19 11:20 Blood Pressure Mean 102 04/17/19 20:31 Blood Pressure Position Supine 04/17/19 16:41 Pulse Oximetry 96 04/18/19 11:20 Oxygen Delivery Method Room Air 04/18/19 11:20 Oxygen Flow Rate 0 04/18/19 11:20 Pain Level 0 04/18/19 11:20 Intake & Output 04/17/19 04/18/19 04/18/19 23:59 11:59 23:59 Intake Total 50 / 50 50 / 50 Balance 50 / 50 50 / 50 Weight 125.5 kg 126.4 kg Intake: IV 50 / 50 50 / 50 Pending studies at discharge: Exam(s) EXAM: CT Head Without Contrast EXAM DATE/TIME: 04/17/2019 5:07 PM CLINICAL HISTORY: 63 years old, male; Other: Confusion, seizure-like activity TECHNIQUE: Imaging protocol: Computed tomography of the head without contrast. Other technique: STROKE PROTOCOL was implemented. COMPARISON: CT HEAD WITHOUT STROKE PROTOCOL 02/25/2018 4:38 PM FINDINGS: Brain: Old right frontal cortical infarct. This also involves the anterior aspect of the right insular cortex. There is nonspecific white matter disease, likely related to chronic ischemic demyelination.No intracranial hemorrhage is seen. No acute arterial territory stroke is noted. Ventricles: Normal. No ventriculomegaly. Bones/joints: Unremarkable. No acute fracture. Sinuses: Mucosal thickening in the bilateral maxillary sinuses. No air-fluid levels. Remaining paranasal air sinuses are normal. Mastoid air cells: Visualized mastoid air cells are well aerated. No mastoid effusion. Soft tissues: Unremarkable. IMPRESSION: 1. Old right frontal cortical infarct. 2. No acute finding Exam(s) EXAM: XR Chest, 2 Views EXAM DATE/TIME: 04/17/2019 5:07 PM CLINICAL HISTORY: 63 years old, male; Other: Confusioin, seizure like activity TECHNIQUE: Imaging protocol: XR of the chest, 2 views. COMPARISON: CR CHEST 2 VIEWS PA,LAT 02/25/2018 4:50 PM FINDINGS: Lungs: Unremarkable. No consolidation. Pleural space: Unremarkable. No pleural effusion. No pneumothorax. Heart/Mediastinum: Unremarkable. No cardiomegaly. Bones/joints: Unremarkable. IMPRESSION: No acute findings. Exam(s) EXAM: CT Angiography Head With Contrast EXAM DATE/TIME: 04/17/2019 6:41 PM CLINICAL HISTORY: 63 years old, male; Patient HX: Left-sided facial numbness, loc, confusion TECHNIQUE: Imaging protocol: Computed tomography angiography of the head with intravenous contrast. 3D rendering: MIP reconstructed images were created and reviewed. COMPARISON: CT HEAD FOR STROKE PROTOCOL 04/17/2019 5:16 PM FINDINGS: Right internal carotid artery: Minimal atherosclerosis at the right cavernous internal carotid artery without hemodynamic sequela. Right anterior cerebral artery: Unremarkable. No occlusion or significant stenosis. No aneurysm. Right middle cerebral artery: Unremarkable. No occlusion or significant stenosis. No aneurysm. Right posterior cerebral artery: Unremarkable. No occlusion or significant stenosis. No aneurysm. Right vertebral artery: Unremarkable. No occlusion or significant stenosis. No aneurysm. Left internal carotid artery: Minimal atherosclerosis at the left cavernous internal carotid artery without hemodynamic sequela. Left anterior cerebral artery: Unremarkable. No occlusion or significant stenosis. No aneurysm. Left middle cerebral artery: Unremarkable. No occlusion or significant stenosis. No aneurysm. Left posterior cerebral artery: Unremarkable. No occlusion or significant stenosis. No aneurysm. Left vertebral artery: Unremarkable. No occlusion or significant stenosis. No aneurysm. Basilar artery: Unremarkable. No occlusion or significant stenosis. No aneurysm. HEAD: Brain: Old right frontal cortical infarct. IMPRESSION: No significant stenosis of the vessels. EXAM: CT Angiography Neck With Contrast EXAM DATE/TIME: 04/17/2019 6:41 PM CLINICAL HISTORY: 63 years old, male; Patient HX: Left-sided facial numbness, loc, confusion TECHNIQUE: Imaging protocol: Computed tomographic angiography images of the neck with intravenous contrast using CT angiography protocol. 3D rendering: MIP reconstructed images were created and reviewed. COMPARISON: CT HEAD FOR STROKE PROTOCOL 04/17/2019 5:16 PM FINDINGS: VASCULATURE: Right common carotid artery: Unremarkable. No stenosis. No dissection or occlusion. Right internal carotid artery: Minimal atherosclerosis at the origin of the right internal carotid artery without hemodynamic sequela. Right external carotid artery: Unremarkable. No occlusion or stenosis of the origin. Right vertebral artery: Unremarkable. No stenosis. No dissection or occlusion. Left common carotid artery: Unremarkable. No stenosis. No dissection or occlusion. Left internal carotid artery: Minimal atherosclerosis at the origin of the left internal carotid artery without hemodynamic sequela. Aneurysmal dilation of the proximal left internal carotid artery up to 1.6 cm. Left external carotid artery: Minimal atherosclerosis at the origin of the left external carotid artery without hemodynamic sequela. Left vertebral artery: Up to 20% stenosis of the origin of the left vertebral artery. Subclavian arteries: Minimal atherosclerosis at the origin of the right subclavian artery without hemodynamic sequela. Minimal atherosclerosis at the origin of the left subclavian artery without hemodynamic sequela. NECK: Bones/joints: No acute fracture. Soft tissues: Normal. No significant soft tissue swelling. IMPRESSION: 1. 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 2. No significant stenosis in the vessels. Labs on day of discharge: Labs from last 24 hours 04/18/19 04/18/19 04/18/19 06:45 06:45 05:35 WBC RBC Hgb Hct MCV MCH MCHC RDW Plt Count MPV Immature Gran % Neutrophils % Lymphocytes % Monocytes % Eosinophils % Basophils % Absolute Neutrophils Absolute Lymphocytes Absolute Monocytes Absolute Eosinophils Absolute Basophils Sodium 143 Potassium 3.4 L Chloride 106 Carbon Dioxide 28.1 Anion Gap 8.9 BUN 11 Creatinine 0.88 Estimated GFR/1.73 m2 >= 60.00 Glucose 94 Hemoglobin A1c 6.5 H Calcium 7.9 L Magnesium 1.9 Total Bilirubin AST ALT Alkaline Phosphatase Troponin I Total Protein Albumin Triglycerides 164 H Cancelled Total Cholesterol 97 Cancelled LDL Cholesterol, Calc 37 Cancelled HDL Cholesterol 28 L Cancelled TSH 3.32 04/17/19 04/17/19 17:10 17:10 WBC 7.09 RBC 5.13 Hgb 13.9 Hct 41.3 MCV 80.5 MCH 27.1 MCHC 33.7 RDW 14.5 H Plt Count 192 MPV 9.9 Immature Gran % 0.1 Neutrophils % 50.7 Lymphocytes % 37.5 Monocytes % 9.2 Eosinophils % 1.8 Basophils % 0.7 Absolute Neutrophils 3.59 Absolute Lymphocytes 2.66 Absolute Monocytes 0.65 Absolute Eosinophils 0.13 Absolute Basophils 0.05 Sodium 142 Potassium 3.7 Chloride 103 Carbon Dioxide 29.9 Anion Gap 9.1 BUN 10 Creatinine 0.97 Estimated GFR/1.73 m2 >= 60.00 Glucose 109 H Hemoglobin A1c Calcium 8.2 L Magnesium 1.3 L Total Bilirubin 0.5 AST 34 ALT 46 Alkaline Phosphatase 83 Troponin I < 0.05 Total Protein 7.2 Albumin 3.5 Triglycerides Total Cholesterol LDL Cholesterol, Calc HDL Cholesterol TSH [facility] Medical History Barretts esophagus (Chronic) CAD (coronary artery disease) (Chronic) COPD (chronic obstructive pulmonary disease) (Chronic) Depression (Chronic) Diabetes mellitus (Chronic) Elevated TSH (Acute) Fatty infiltration of liver (Chronic) Hip pain, right (Acute) HTN (hypertension) (Chronic) Hx of adenomatous colonic polyps (Acute) Hx of deep venous thrombosis (Acute) Hx of gastric ulcer (Acute) Hyperlipidemia (Chronic) Insomnia (Chronic) Low testosterone (Acute) Lumbar back pain (Chronic) Morbid obesity (Chronic) Neck pain (Acute) EVIE (obstructive sleep apnea) (Chronic) TIA (transient ischemic attack) (Acute) Tobacco use (Chronic) Vitamin B1 deficiency (Acute) Surgical History Colonoscopy - MAC (09/30/17) EGD - MAC (09/30/17) H/O vasectomy (Acute) Post-laminectomy syndrome (Acute) S/P repair of hydrocele (Acute) Social History Smoking/Tobacco Use Status: Current every day Alcohol Intake: current Alcohol Intake frequency: a few times a week Drug use: Occasionally Substance use type: marijuana Household members: spouse Housing: apartment Number of Children: 3 What type of physical activity do you participate in: none Do you feel safe at home: Yes Do you feel safe in your relationship?: Yes
== END 2019-04-18 14:35 | disposition home or self-care (01) ==
LOC: ER 20:53 → MS 21:38
PROVIDERS: Admitting Provider Internal Medicine; Emergency Provider Physician Assistant; PCP Family Medicine; Visit Provider Internal Medicine
DX: R56.9 Unspecified convulsions (principal); Z86.73 Personal history of transient ischemic attack (TIA), and cerebral infarction without residual deficits; E11.9 Type 2 diabetes mellitus without complications; F17.210 Nicotine dependence, cigarettes, uncomplicated; I10 Essential (primary) hypertension; J44.9 Chronic obstructive pulmonary disease, unspecified; E78.5 Hyperlipidemia, unspecified; E83.42 Hypomagnesemia
CPT/HCPCS: 36415; 70496; 70498; 80048; 80053; 80061; 93005; 96365; 96366; 99217; 99220; 99285; 70450; 71046; 83036; 83735; 84443; 84484; 85025; 93010; 99236; G0378; J3490

== ENCOUNTER 2019-04-23 03:55 | Outpatient (CLI) | payer OTHER, SELFPAY ==
--- NOTE | 2019-04-23 14:01 | DI.MRI_ITS ---
SYMPTOMS/DIAGNOSIS: PERSONAL H/O TRANSIENT ISCHEMIC ATTACK AND CEREBRAL INFARCTION WO RESIDUAL DEFICITS, Z86.73 BRAIN MRI: MRI examination of the brain was performed according to the usual protocol. Three is moderate generalized cerebral atrophy. There is an old right frontal infarct as noted on previous CT of 02/25/2018 and there are areas of associated presumed gliosis. There are periventricular white matter signal changes consistent with microvascular ischemic changes. No other significant signal abnormality identified in the brain. Probable tiny bilateral lacunar infarcts noted. The orbital and temporal bone structures appear intact, as does the pituitary. There is normal flow void in the [place] vasculature. Diffusion weighted imaging shows no evidence of acute or subacute infarction. Susceptibility weighted imaging shows no evidence of intracranial hemorrhage. CONCLUSION: No evidence of acute intracranial process. Old right frontal infarct, and diffuse atrophy and white matter microvascular ischemic changes.
== END 2019-04-23 04:15 ==
PROVIDERS: PCP Family Medicine; Visit Provider Internal Medicine
DX: R90.82 White matter disease, unspecified (principal); Z86.73 Personal history of transient ischemic attack (TIA), and cerebral infarction without residual deficits
CPT/HCPCS: 70551

== ENCOUNTER 2019-04-27 01:13 | Outpatient (CLI) | payer OTHER, SELFPAY ==
--- NOTE | 2019-04-27 16:49 | PDOC.EEG_ITS ---
EEG: [facility] Department of Neurology EEG REPORT Date of Recordin04/27/19 Interpreting Physician: Dr. Orly Fernandez PCP/Referring Provider: Dr. Keyla Lucia Reason for study: Mr. Hoffmann is a 63 year-old man with a 1 year history of spells manifested by left facial quivering that will last for 3 to 4 minutes progressing into an episode of sonorous respirations with questionable loss of consciousness (he has vague recollection) and generalized jerking of his arms and legs not associated with any urinary or bowel incontinence and not associated with any biting of his lips or tongue. He has had ~5-6 total episodes. Current Medications: Home Medications Medication Instructions Recorded Confirmed Type metoprolol succinate [Toprol XL] 200 mg PO DAILY 03/20/13 04/17/19 History Dexilant 30 mg PO DAILY tab-cap 09/02/17 04/17/19 History atorvastatin 40 mg PO DAILY 02/25/18 04/17/19 History hydrocodone-acetaminophen [Vicodin 2 ea PO Q6H PRN PRN 02/25/18 04/17/19 History HP] metformin 1,000 mg PO DAILY 02/25/18 04/17/19 History albuterol sulfate 90 mcg/actuation 2 puff INHALATION Q6H PRN gm 07/30/18 04/17/19 History aerosol inhaler betamethasone dipropionate 0.05 % 1 applic TP BID PRN 07/30/18 04/17/19 History topical cream cholecalciferol (vitamin D3) 2,000 2,000 unit PO DAILY 07/30/18 04/17/19 History unit capsule cyanocobalamin (vitamin B-12) 2,000 mcg PO DAILY 07/30/18 04/17/19 History 2,000 mcg tablet morphine 15 mg tablet,extended 15 mg PO DAILY tab 07/30/18 04/17/19 History release pregabalin 100 mg capsule 100 mg PO BID 07/30/18 04/17/19 History ranitidine HCl 300 mg capsule 300 mg PO DAILY 07/30/18 04/17/19 History Bydureon 2 mg SUBCUT QWEEK 04/17/19 04/17/19 History Trelegy Ellipta 1 inh INHALATION DAILY 04/17/19 04/17/19 History folic acid 1 mg PO DAILY 04/17/19 04/17/19 History clopidogrel 75 mg PO DAILY #30 tab 04/18/19 Rx levetiracetam [Keppra] 500 mg PO BID #60 tab 04/18/19 Rx nicotine [Nicotrol] 1 inh INHALATION Q2H PRN PRN #168 04/18/19 Rx each METHODS: A 21 channel digitized electroencephalogram was performed in the [facility] Clinical Neurophysiology Laboratory. The 10/20 international system of electrode placement was used and bipolar and referential electrode montages were recorded. In addition to EEG the patient was monitored for EKG and lateral/vertical eye movements. Activation procedures of photic stimulation and hyperventilation were performed if applicable. Video was used during activation procedures and during events where applicable. The duration of the recording was 30 minutes. DESCRIPTION OF EEG: The patient was noted to be awake, drowsy, and alseep during the recording. During maximal wakefulness a 9-Hz posterior background rhythm was present which was well-modulated, symmetrical, reactive to eye opening, and of moderate voltage. With eye opening the background activity changed to a low voltage mixture of alpha, beta, and occasional theta range frequencies. Faster frequencies were present in the bilateral anterior head regions. There was a normal anterior-posterior voltage gradient. During drowsiness, there was attenuation of the posterior dominant background rhythm and vertex waves. Stage II sleep was present with symmetrical sleep spindles, K-complexes, and vertex waves. During sleep, the patient was witnessed to have moderate snoring, a few gasps, and one episode of apnea lasting 20-30 seconds. Activating Procedures: Photic stimulation was performed which produced no posterior driving response. Hyperventilation was performed with moderate effort and produced no physiological slowing of the background. EKG: EKG revealed normal sinus rhythm. INTERPRETATION: This EEG is normal during the awake and asleep states as well as during photic stimulation and hyperventilation. PRIOR EEG: none CLINICAL CORRELATION: No focal regions of cerebral dysfunction or epileptiform activity was present. Epilepsy remains a clinical diagnosis and a normal EEG does not rule out epilepsy. Of note, during sleep the patient was witnessed to have moderate snoring, a few gasps, and one episode of apnea lasting 20-30 seconds. This is concerning for a sleep apnea. Clinical correlation is advised. Orly Fernandez MD
== END 2019-04-27 01:33 ==
PROVIDERS: PCP Family Medicine; Visit Provider Internal Medicine
DX: R40.4 Transient alteration of awareness (principal); R25.3 Fasciculation; Z86.73 Personal history of transient ischemic attack (TIA), and cerebral infarction without residual deficits
CPT/HCPCS: 95819

== ENCOUNTER 2019-08-26 02:25 | Outpatient (CLI) | payer OTHER, SELFPAY ==
[2019-08-26 09:55] LABS: HCT 43.6 % (40.0-50.0); HGB 14.7 g/dL (13.5-17.5); Mean Corp. HGB Concentration 33.7 g/dL (32.0-36.0); Mean Corpuscular Hemoglobin 28.1 pg (27.0-33.0); Mean Corpuscular Volume 83.2 fL (80-95); Platelet Count 210 x1000/uL (130-400); RBC 5.24 m/cumm (4.50-6.00); RBC Distribution Width 14.2 % (11.8-14.1); White Blood Cell Count 8.74 k/cumm (4.4-10.8)
[2019-08-26 10:57] LABS: ALT 67 U/L (16-63); AST 67 U/L (15-37); Albumin 3.9 g/dL (3.4-5.0); Alkaline Phosphatase 113 U/L (46-116); Anion Gap 10.4 mmol/L (3-11); BUN 11 mg/dL (7-18); Bilirubin, Total 0.6 mg/dL (0.2-1.0); CO2 30.6 mmol/L (21.0-32.0); CREATININE 1.01 mg/dL (0.70-1.30); Calcium 9.3 mg/dL (8.5-10.1); Chloride 101 mmol/L (98-107); Glucose 173 mg/dL (74-106); Potassium 4.5 mmol/L (3.5-5.1); Sodium 142 mmol/L (136-145); Total Protein 7.5 g/dL (6.4-8.2)
[2019-08-26 10:58] LABS: Folate > 20.0 ng/mL (8.6-20.0)
[2019-08-28 15:47] LABS: Testosterone, Free 9.65 ng/dL (3.67-13.9); Testosterone, Total 508 ng/dL (240-950)
== END 2019-08-26 02:45 ==
PROVIDERS: PCP Family Medicine; Visit Provider Family Medicine
DX: E11.9 Type 2 diabetes mellitus without complications (principal); I10 Essential (primary) hypertension; E29.1 Testicular hypofunction
CPT/HCPCS: 36415; 80053; 84402; 84403; 85027; 82746; 83036

== ENCOUNTER 2019-11-02 01:18 | Outpatient (CLI) | payer OTHER, SELFPAY ==
[2019-11-02 08:18] LABS: ALT 55 U/L (16-63); AST 34 U/L (15-37); Albumin 3.8 g/dL (3.4-5.0); Alkaline Phosphatase 100 U/L (46-116); Bilirubin, Direct 0.16 mg/dL (0.00-0.20); Bilirubin, Total 0.4 mg/dL (0.2-1.0); Total Protein 7.4 g/dL (6.4-8.2)
[2019-11-02 08:21] LABS: Hemoglobin A1C 6.9 % (3.8-5.6)
== END 2019-11-02 01:38 ==
PROVIDERS: PCP Family Medicine; Visit Provider Family Medicine
DX: E78.5 Hyperlipidemia, unspecified (principal); E11.9 Type 2 diabetes mellitus without complications; I10 Essential (primary) hypertension; I25.10 Atherosclerotic heart disease of native coronary artery without angina pectoris
CPT/HCPCS: 36415; 80076; 83036

== ENCOUNTER 2020-01-29 10:52 | Outpatient (REF) | payer OTHER, SELFPAY ==
[2020-01-29 17:31] LABS: Microalb ug/mg Crea 15.4 ug/mg Cr
== END 2020-01-29 11:12 ==
LOC: NCHCN 10:52
PROVIDERS: PCP Family Medicine; Visit Provider Family Medicine
DX: E11.9 Type 2 diabetes mellitus without complications (principal)
CPT/HCPCS: 82043; 82570

== ENCOUNTER 2020-07-08 11:08 | Outpatient (REF) | payer OTHER, SELFPAY ==
[2020-07-08 20:37] LABS: HCT 41.7 % (40.0-50.0); MCH 27.3 pg (27.0-33.0); MCHC 33.6 % (32.0-36.0); MCV 81.3 fL (80-95); MPV 11.4 fL (8.0-11.0); Platelet Count 229 10^3/uL (130-400); RBC 5.13 10^6/uL (4.36-5.78); RDW 13.6 % (11.8-14.1); RDW-SD 40.8 fL; WBC 10.44 10^3/uL (4.4-10.8)
[2020-07-08 20:51] LABS: ALT 21 U/L (16-63); AST 22 U/L (15-37); Albumin 3.8 g/dL (3.4-5.0); Alkaline Phosphatase 91 U/L (46-116); Anion Gap 10.1 mmol/L (3-11); BUN 14 mg/dL (7-18); Bilirubin, Total 0.5 mg/dL (0.2-1.0); CO2 30.9 mmol/L (21.0-32.0); CREATININE 1.87 mg/dL (0.70-1.30); Calcium 7.1 mg/dL (8.5-10.1); Chloride 101 mmol/L (98-107); Estimated GFR 36.77 (mL/min/1.73m2); Glucose 119 mg/dL (74-106); Potassium 3.7 mmol/L (3.5-5.1); Sodium 142 mmol/L (136-145); TSH (W/Ref FT4) 1.76 uIU/mL (0.36-3.74); Total Protein 7.7 g/dL (6.4-8.2)
[2020-07-08 21:48] LABS: Folate > 20.0 ng/mL (8.6-20.0); Vitamin B12 1175 pg/mL (193-986)
== END 2020-07-08 11:28 ==
LOC: NCHCN 11:08
PROVIDERS: PCP Family Medicine; Visit Provider Family Medicine
DX: E11.9 Type 2 diabetes mellitus without complications (principal); I10 Essential (primary) hypertension; E53.8 Deficiency of other specified B group vitamins; R94.6 Abnormal results of thyroid function studies; K76.0 Fatty (change of) liver, not elsewhere classified
CPT/HCPCS: 80053; 85027; 82607; 82746; 84443

== ENCOUNTER 2020-07-19 07:54 | Outpatient (CLI) | payer OTHER, SELFPAY ==
[2020-07-19 09:44] LABS: Anion Gap 8.2 mmol/L (3-11); BUN 7 mg/dL (7-18); CO2 31.8 mmol/L (21.0-32.0); CREATININE 1.11 mg/dL (0.70-1.30); Calcium 6.5 mg/dL (8.5-10.1); Chloride 103 mmol/L (98-107); Glucose 121 mg/dL (74-106); PHOSPHORUS 4.4 mg/dL (2.6-4.7); Potassium 3.2 mmol/L (3.5-5.1); Sodium 143 mmol/L (136-145)
[2020-07-19 10:02] LABS: Magnesium 0.7 mg/dL (1.8-2.4)
[2020-07-19 21:12] LABS: Ionized Calcium 0.79 mmol/L (1.12-1.32)
[2020-07-20 10:09] LABS: Parathyroid Hormone,Intact 46 pg/mL (19-88)
== END 2020-07-19 08:14 ==
PROVIDERS: PCP Family Medicine; Visit Provider Family Medicine
DX: E83.51 Hypocalcemia (principal)
CPT/HCPCS: 36415; 80048; 82306; 82330; 83735; 83970; 84100

== ENCOUNTER 2020-07-20 08:42 | Emergency (ER) | payer OTHER, SELFPAY ==
[2020-07-20] VITALS (34 sets, daily range): BP systolic 99–150; BP diastolic 61–95; PULSE 67–76; RESP 12–21; TEMP 36.6; O2SAT 90–95
--- NOTE | 2020-07-20 08:45 | RT.EKG_ITS ---
APPROVED REPORT Exam: Resting ECG Patient Location: E HR:70 bpm ECG Measurements Heart Rate 70 AXIS UT 205 P 59 QRSd 85 QRS 50 QT 450 T 39 QTc 486 Conclusion Sinus rhythm...normal P axis, V-rate 60- 99. Less than 1mm ST depression in V4-6 compared to previous. No STEMI. I have reviewed and interpreted ECG and agree with software generated interpretation.
[2020-07-20] MEDS: Normal Saline Flush 10 ML SYR IVP (09:15)
[2020-07-20 09:18] LABS: Abs Immature Grans 0.02 10^3/uL (0.0-0.06); Absolute Basophil Count 0.06 10^3/uL (0.0-0.2); Absolute Eosinophil Count 0.21 10^3/uL (0.0-0.7); Absolute Monocyte Count 0.86 10^3/uL (0.1-0.8); Absolute Neutrophil Count 5.72 10^3/uL (1.2-6.7); Basophils % 0.6; Eosinophils % 2.1; HCT 35.8 % (40.0-50.0); HGB 12.3 g/dL (13.5-17.5); Immature Grans % 0.2; Lymphocytes % 29.7; MCH 27.2 pg (27.0-33.0); MCHC 34.4 % (32.0-36.0); MCV 79.2 fL (80-95); MPV 9.9 fL (8.0-11.0); Monocytes % 8.8; Neutrophils % 58.6; Nucleated RBC 0 %; Platelet Count 169 10^3/uL (130-400); RBC 4.52 10^6/uL (4.36-5.78); RDW 13.2 % (11.8-14.1); RDW-SD 37.9 fL; WBC 9.77 10^3/uL (4.4-10.8)
[2020-07-20 09:33] LABS: ALT 13 U/L (16-63); AST 17 U/L (15-37); Albumin 3.2 g/dL (3.4-5.0); Alkaline Phosphatase 84 U/L (46-116); BUN 10 mg/dL (7-18); Bilirubin, Total 0.5 mg/dL (0.2-1.0); CREATININE 1.26 mg/dL (0.70-1.30); Chloride 103 mmol/L (98-107); Estimated GFR 57.99 (mL/min/1.73m2); Glucose 104 mg/dL (74-106); Potassium 3.1 mmol/L (3.5-5.1); Sodium 142 mmol/L (136-145); Total Protein 7.1 g/dL (6.4-8.2)
[2020-07-20 09:36] LABS: Calcium 6.4 mg/dL (8.5-10.1)
[2020-07-20 09:37] LABS: Magnesium 0.7 mg/dL (1.8-2.4)
--- NOTE | 2020-07-20 09:45 | ED.GENADUL_ITS ---
Discharge Plan Disposition Patient Disposition: AGAINST MEDICAL ADVICE Condition: Serious Discharge Details Clinical Impression: Hypomagnesemia, Hypokalemia, Hypocalcemia Primary Care Provider: Lora Glasgow ED Provider: Manish Corrigan Home Meds and New Rx's Prescriptions: New potassium chloride 20 mEq tablet extended release 20 meq PO DAILY Qty: 7 RF: 0 magnesium oxide 500 mg capsule 500 mg PO BID 7 Days Qty: 14 RF: 0 Continued betamethasone dipropionate 0.05 % cream 1 applic TP BID PRNRF: 0 morphine 15 mg tablet extended release 15 mg PO DAILY RF: 0 pregabalin [Lyrica] 100 mg capsule 100 mg PO BID RF: 0 cholecalciferol (vitamin D3) 2,000 unit capsule 2,000 unit PO DAILY RF: 0 cyanocobalamin (vitamin B-12) 2,000 mcg tablet 2,000 mcg PO DAILY RF: 0 Dexilant 30 MG capsule,biphase delayed releas 30 mg PO DAILY RF: 0 aspirin [Adult Low Dose Aspirin] 81 mg tablet,delayed release (DR/EC) 81 mg PO DAILY RF: 0 fluoxetine 40 mg capsule 60 mg PO DAILY RF: 0 cyclobenzaprine 10 mg tablet 10 mg PO TID RF: 0 levetiracetam 1,000 mg tablet 1,000 mg PO TID Qty: 270 RF: 3 metoprolol succinate [Toprol XL] 200 MG tablet extended release 24 hr 200 mg PO DAILY RF: 0 atorvastatin 40 MG tablet 40 mg PO DAILY RF: 0 metformin 500 MG tablet extended release 24hr 1,000 mg PO DAILY RF: 0 hydrocodone-acetaminophen [Vicodin HP] 1 EACH tablet 2 ea PO Q6H PRN PRNRF: 0 albuterol sulfate [ProAir HFA] 90 mcg/actuation HFA aerosol inhaler 2 puff Inhalation Q6H PRNRF: 0 folic acid 1 mg Tablet 1 mg PO DAILY RF: 0 Trelegy Ellipta 100-62.5-25 mcg Blister With Device 1 inh INHALATION DAILY RF: 0 losartan 50 mg tablet 50 mg PO DAILY RF: 0 hydroxyzine HCl 50 mg tablet 100 mg PO HS RF: 0 Victoza 3-Alexi 0.6 mg/0.1 mL (18 mg/3 mL) Pen Injector 1.2 mg SUBCUT Q24H RF: 0 Discharge Instructions Instructions: Hypokalemia (ED), Hypocalcemia (ED), Hypomagnesemia (ED) Additional Instructions: We discussed your abnormal lab values such as your low potassium, calcium, magnesium. We discussed observation admission at this time however that was declined. Instead I spoke with your primary care provider and we came up with a plan moving forward. You have decided to leave AGAINST MEDICAL ADVICE before the magnesium infusion completed and have not received any of the IV calcium. You understand that this may lead to becoming symptomatic which in turn could lead to . Please take magnesium and potassium supplements as directed. Your parathyroid hormone and vitamin D levels are pending which were ordered by your primary care provider. We discussed signs and symptoms to watch for and the importance of returning immediately to the ER. Otherwise your primary care office should be reaching out to you in the next couple of days to set up an appointment with you in the next week as well as setting up for an outpatient lab draw to be sure your levels are appropriate. If you do not hear from them in the next couple of days I recommend reaching out to them before the weekend. As already stated, please watch for new or evolving symptoms and return immediately to the ER. Medical Decision Making 64-year-old gentleman with past medical history that includes epilepsy, hypertension, diabetes, CVA, CAD, COPD, presents to the ER because of abnormal lab values at the request of his primary care provider. He was noted to have a low magnesium, potassium, calcium. There has been no change in any of his medications. Denies abdominal pain, nausea, vomiting. He reports normal appetite. Clinically he appears well, nontoxic. Will obtain IV access, recheck his laboratory values to be sure there is no error, and obtain an EKG. Negative Trousseau and Chvostek sign EKG is unremarkable. Please see official report by Dr. Santiago. Laboratory values do reveal a calcium of 6.4 magnesium 0.7 potassium 3.1. These will need to be replenished, but given post his calcium and magnesium are critical, I do believe this can be recently done as an inpatient to be sure these levels trend in the right direction and stabilize. We discussed o bservation admission but patient declines. He states just pump me full of these medicines and get me out of here. I did explain to him that unfortunately it just is not July. I placed a call to Dr. Glasgow to discuss a plan. Recommends replenishing his electrolytes here in the ER, providing a prescription for both magnesium and potassium, and the plan is that she will follow the patient in her office over the next week and have additional laboratory values obtained to evaluate if his levels are normalizing. A parathyroid hormone and a vitamin D are currently pending. I discussed this plan with the patient and he initially agrees. He tells me he does not want to be here very long. Will replenish his potassium, magnesium, calcium through the IV and also give a p.o. dose of potassium. I was called into the room when the patient had a 24 minutes left of his infusion of both his potassium and magnesium. Patient has not received his calcium yet. He would like his IV removed and he would like to be discharged. He does not want to wait here any longer. We had a lengthy discussion regarding the signs and symptoms of hypokalemia, hypomagnesium, hypocalcemia. We discussed signs and symptoms to watch for and the importance of returning immediately to the hospital. We also discussed that although he may be asymptomatic now he could certainly become symptomatic, leading to arrhythmias, and eventually . Patient understands this and still request to leave AMA. Patient appears clinically sober, is of sound mind, and based upon my clinical examination has the capacity to make their own decisions. We have offered treatment options and discussed the the risks and benefits of these options and refusing these options, including and/or disability specific to the patient's pathology. Pt is able to discuss and understands the risks and benefits and alternatives of treatment and refusing treatment. The patient still chooses to leave before evaluation and treatment can be completed AGAINST MEDICAL ADVICE. Medical Records Medical records reviewed: Yes I reviewed the patient's medical records. Lab Data Lab results reviewed: Yes I reviewed the patient's lab results. Lab results narrative: Laboratory Tests Range/Units 07/20/20 07/20/20 07/20/20 09:10 09:10 09:10 WBC (4.4-10.8) 10^3/uL 9.77 RBC (4.36-5.78) 10^6/uL 4.52 Hgb (13.5-17.5) g/dL 12.3 L Hct (40.0-50.0) % 35.8 L MCV (80-95) fL 79.2 L MCH (27.0-33.0) pg 27.2 MCHC (32.0-36.0) % 34.4 RDW (11.8-14.1) % 13.2 Plt Count (130-400) 10^3/uL 169 MPV (8.0-11.0) fL 9.9 Immature Gran % 0.2 Neutrophils % 58.6 Lymphocytes % 29.7 Monocytes % 8.8 Eosinophils % 2.1 Basophils % 0.6 Nucleated RBC % % 0 Absolute Neutrophils (1.2-6.7) 10^3/uL 5.72 Absolute Lymphocytes (1.2-3.4) 10^3/uL 2.90 Absolute Monocytes (0.1-0.8) 10^3/uL 0.86 H Absolute Eosinophils (0.0-0.7) 10^3/uL 0.21 Absolute Basophils (0.0-0.2) 10^3/uL 0.06 Sodium (136-145) mmol/L 142 Potassium (3.5-5.1) mmol/L 3.1 L Chloride (98-107) mmol/L 103 Carbon Dioxide (21.0-32.0) mmol/L 33.0 H Anion Gap (3-11) mmol/L 6.0 BUN (7-18) mg/dL 10 Creatinine (0.70-1.30) mg/dL 1.26 Estimated GFR/1.73 m2 (mL/min/1.73m2) 57.99 Glucose (74-106) mg/dL 104 Calcium (8.5-10.1) mg/dL 6.4 L* Magnesium (1.8-2.4) mg/dL 0.7 L* Total Bilirubin (0.2-1.0) mg/dL 0.5 AST (15-37) U/L 17 ALT (16-63) U/L 13 L Alkaline Phosphatase (46-116) U/L 84 Total Protein (6.4-8.2) g/dL 7.1 Albumin (3.4-5.0) g/dL 3.2 L TSH (0.36-3.74) uIU/mL 2.52 ECG Data Attestation: I personally reviewed and interpreted this ECG (s) as follows: Interpretation: Please see official report by Dr. Santiago. Sinus rhythm, ventricular rate of 70. No STEMI. No QT prolongation HPI General Mode of arrival: ambulatory . Date/Time Provider Initiated Documentation: 07/20/20 08:56 . Limitations to Documentation: no limitations . Information obtained by: patient . HPI Narrative: This is a 64-year-old gentleman with past medical history that includes epilepsy, CAD, COPD, Rodgers's esophagitis, hypertension, diabetes, CVA, chronic back pain with radiculopathy. He had blood drawn within the last week, received a phone call from his primary care office last night around 10 PM instructing him to come to the hospital for evaluation of abnormal laboratory values. He is not sure what these lab values are, feels asymptomatic, and instead waited to come this morning. He denies any recent illness or trauma. He denies headache, fever, chest pain, shortness of breath abdominal pain, nausea vomiting, change in urinary or bowel symptoms. He denies any medication changes. Denies change in his diet. Patient reports that he currently has his chronic pain that is unchanged and is otherwise asymptomatic at this time. Related Data Home Medications Medication Instructions Recorded Confirmed metoprolol succinate [Toprol XL] 200 mg PO DAILY 03/20/13 07/20/20 Dexilant 30 mg PO DAILY tab-cap 09/02/17 07/20/20 atorvastatin 40 mg PO DAILY 02/25/18 07/20/20 hydrocodone-acetaminophen [Vicodin 2 ea PO Q6H PRN PRN 02/25/18 07/20/20 HP] metformin 1,000 mg PO DAILY 02/25/18 07/20/20 albuterol sulfate 90 mcg/actuation 2 puff INHALATION Q6H PRN gm 07/30/18 07/20/20 aerosol inhaler betamethasone dipropionate 0.05 % 1 applic TP BID PRN 07/30/18 07/20/20 topical cream cholecalciferol (vitamin D3) 50 2,000 unit PO DAILY 07/30/18 07/20/20 mcg (2,000 unit) capsule cyanocobalamin (vitamin B-12) 2,000 mcg PO DAILY 07/30/18 07/20/20 2,000 mcg tablet morphine 15 mg tablet,extended 15 mg PO DAILY tab 07/30/18 07/20/20 release pregabalin 100 mg capsule 100 mg PO BID 07/30/18 07/20/20 Trelegy Ellipta 1 inh INHALATION DAILY 04/17/19 07/20/20 folic acid 1 mg PO DAILY 04/17/19 07/20/20 aspirin 81 mg tablet,delayed 81 mg PO DAILY 05/01/19 07/20/20 release cyclobenzaprine 10 mg tablet 10 mg PO TID 05/01/19 07/20/20 fluoxetine 40 mg capsule 60 mg PO DAILY 05/01/19 07/20/20 levetiracetam 1,000 mg tablet 1,000 mg PO TID #270 tab 07/18/20 07/20/20 Victoza 3-Alexi 1.2 mg SUBCUT Q24H 07/20/20 07/20/20 hydroxyzine HCl 100 mg PO HS 07/20/20 07/20/20 losartan 50 mg PO DAILY 07/20/20 07/20/20 magnesium oxide 500 mg PO BID 7 Days #14 cap 07/20/20 potassium chloride 20 meq PO DAILY #7 tab 07/20/20 Previous Rx's Medication Instructions Recorded levetiracetam 1,000 mg tablet 1,000 mg PO TID #270 tab 07/18/20 magnesium oxide 500 mg PO BID 7 Days #14 cap 07/20/20 potassium chloride 20 meq PO DAILY #7 tab 07/20/20 Allergies Allergy/AdvReac Type Severity Reaction Status Date / Time hydrochlorothiazide Allergy Mild Unverified 07/20/20 08:54 lisinopril Allergy Mild Unverified 07/20/20 08:54 Penicillins Allergy Unknown as child Unverified 07/20/20 08:54 unsure of reaction General Stated Complaint: GenMedical RAMILA: 2 Review of Systems Constitutional Constitutional: Denies fatigue, Denies fever(s) and Denies headache(s) ENT Ears, Nose, Mouth, and Throat: Denies headache(s) Cardiovascular Cardiovascular: Denies chest pain and Denies dyspnea Respiratory Respiratory: Denies cough and Denies dyspnea Gastrointestinal Gastrointestinal: Denies abdominal pain, Denies diarrhea, Denies nausea and Denies vomiting Genitourinary Genitourinary: Denies dysuria Musculoskeletal Musculoskeletal: Reports back pain (Chronic), Denies numbness and Reports other (Denies spasm) Neurologic Neurologic: Denies headache(s) and Denies numbness Endocrine Endocrine: Denies fatigue [facility] Medical History Barretts esophagus CAD (coronary artery disease) COPD (chronic obstructive pulmonary disease) Depression Diabetes mellitus DISH (diffuse idiopathic skeletal hyperostosis) Elevated TSH Fatty infiltration of liver Focal (motor) epilepsy Hip pain, right HTN (hypertension) Hx of adenomatous colonic polyps Hx of deep venous thrombosis Hx of gastric ulcer Hyperlipidemia Insomnia Low testosterone Lumbar back pain Morbid obesity Neck pain EVIE (obstructive sleep apnea) PSG 2014; severe EVIE with nocturnal hypoxemia; intolerant of CPAP Tobacco use Vitamin B1 deficiency Surgical History Colonoscopy - MAC (09/30/17) EGD - MAC (09/30/17) H/O vasectomy Post-laminectomy syndrome S/P repair of hydrocele Family History Mother Cancer Granddaughter Epilepsy Social History Smoking/Tobacco Use Status: Current every day Counseling given: counseling >10 minutes Smoking risk assessment performed?: Yes Alcohol Intake: current Alcohol Intake frequency: a few times a week Drug use: Rarely Substance use type: marijuana Household members: spouse Housing: apartment Number of Children: 3 current occupation: Disabled. Formerly in construction What type of physical activity do you participate in: none Do you feel safe at home: Yes Do you feel safe in your relationship?: Yes Exam Const General: cooperative, healthy appearing, comfortable and no acute distress Orientation: alert, awake and oriented x3 HENMT Head: normal to inspection, normocephalic and atraumatic Face and sinus: normal facial exam Mouth: moist mucous membranes Throat: posterior oropharynx normal Eyes General: appearance normal, both eyes and all related structures Alignment and Position: alignment normal Periorbital: periorbital findings normal Eyelids: eyelids normal Conjunctivae: conjunctivae normal Sclera: sclerae normal Cornea: corneas normal EOM: EOM intact bilaterally Neck Neck: normal visual inspection, full ROM, trachea midline and supple Resp Effort & Inspection: normal respiratory effort and able to speak in complete sentences Auscultation: clear to auscultation bilaterally Cardio Rate: regular rate Rhythm: regular rhythm GI Palpation: soft and nontender Back/Spine/Pelvis Back: back tenderness (Diffuse mild lumbar, baseline per patient) Skin General skin exam: no rashes or lesions noted Neuro General: patient alert, patient awake, patient oriented x3, moves all extremities and no focal motor deficits Cranial Nerves: CN's II-XI intact bilaterally Cognition: normal cognition Speech: speech normal Gait: normal gait Motor: muscle tone normal throughout Sensory Exam: no sensory deficits noted Extrem General: normal to inspection, full ROM, capillary refill normal, no pedal edema and no calf tenderness Psych Appearance: grossly normal Mental Status: mental status grossly normal Course Vital Signs Vital signs: Vital Signs Temperature 36.6 C 07/20/20 08:45 Pulse 72 07/20/20 08:45 Respiratory Rate 17 07/20/20 08:45 Blood Pressure 150/72 H 07/20/20 08:45 Pulse Oximetry 95 07/20/20 08:45 Temperature 36.6 C 07/20/20 08:45 Temperature Source Temporal Artery Scan 07/20/20 08:45 Pulse 72 07/20/20 09:17 Pulse 71 07/20/20 09:17 Respiratory Rate 17 07/20/20 09:20 Respiratory Effort Non-Labored 07/20/20 09:20 Respiratory Depth Normal 07/20/20 09:20 Respiratory Pattern Normal 07/20/20 09:20 Blood Pressure 128/61 07/20/20 09:17 Blood Pressure Mean 79 07/20/20 09:17 Blood Pressure Position Supine 07/20/20 08:45 Pulse Oximetry 93 07/20/20 09:20 Oxygen Delivery Method Room Air 07/20/20 08:45 Oxygen Flow Rate 0 07/20/20 08:45 Pain Level 4 07/20/20 08:45 Lab/Test Results Lab/Test Results: Laboratory Tests Range/Units 07/20/20 07/20/20 09:10 09:10 WBC (4.4-10.8) 10^3/uL 9.77 RBC (4.36-5.78) 10^6/uL 4.52 Hgb (13.5-17.5) g/dL 12.3 L Hct (40.0-50.0) % 35.8 L MCV (80-95) fL 79.2 L MCH (27.0-33.0) pg 27.2 MCHC (32.0-36.0) % 34.4 RDW (11.8-14.1) % 13.2 Plt Count (130-400) 10^3/uL 169 MPV (8.0-11.0) fL 9.9 Immature Gran % 0.2 Neutrophils % 58.6 Lymphocytes % 29.7 Monocytes % 8.8 Eosinophils % 2.1 Basophils % 0.6 Nucleated RBC % % 0 Absolute Neutrophils (1.2-6.7) 10^3/uL 5.72 Absolute Lymphocytes (1.2-3.4) 10^3/uL 2.90 Absolute Monocytes (0.1-0.8) 10^3/uL 0.86 H Absolute Eosinophils (0.0-0.7) 10^3/uL 0.21 Absolute Basophils (0.0-0.2) 10^3/uL 0.06 Sodium (136-145) mmol/L 142 Potassium (3.5-5.1) mmol/L 3.1 L Chloride (98-107) mmol/L 103 Carbon Dioxide (21.0-32.0) mmol/L 33.0 H Anion Gap (3-11) mmol/L 6.0 BUN (7-18) mg/dL 10 Creatinine (0.70-1.30) mg/dL 1.26 Estimated GFR/1.73 m2 (mL/min/1.73m2) 57.99 Glucose (74-106) mg/dL 104 Calcium (8.5-10.1) mg/dL 6.4 L* Magnesium (1.8-2.4) mg/dL 0.7 L* Total Bilirubin (0.2-1.0) mg/dL 0.5 AST (15-37) U/L 17 ALT (16-63) U/L 13 L Alkaline Phosphatase (46-116) U/L 84 Total Protein (6.4-8.2) g/dL 7.1 Albumin (3.4-5.0) g/dL 3.2 L
[2020-07-20] MEDS: MAGNESIUM SULFATE 2 GM/50 ML BAG IVPB (10:08)
[2020-07-20] MEDS: Normal Saline 1,000 ML 100 ML IV (10:08)
[2020-07-20] MEDS: Potassium Chloride 20 MEQ TABCR 40 MEQ PO (10:08)
[2020-07-20 10:09] LABS: TSH (W/Ref FT4) 2.52 uIU/mL (0.36-3.74)
[2020-07-20] MEDS: POTASSIUM CHLORIDE 10 MEQ/100 ML BAG 100 MEQ IVPB (11:04)
== END 2020-07-20 11:58 | disposition left against medical advice (07) ==
PROVIDERS: Emergency Provider Physician Assistant; PCP Family Medicine
DX: E83.42 Hypomagnesemia (principal); E87.6 Hypokalemia; E83.51 Hypocalcemia; Z53.29 Procedure and treatment not carried out because of patient's decision for other reasons; I10 Essential (primary) hypertension; E11.9 Type 2 diabetes mellitus without complications; Z79.4 Long term (current) use of insulin; J44.9 Chronic obstructive pulmonary disease, unspecified; F17.210 Nicotine dependence, cigarettes, uncomplicated
CPT/HCPCS: 36415; 80053; 93005; 96365; 96366; 96367; 99284; 83735; 84443; 85025; 93010; J3480

== ENCOUNTER 2020-07-28 13:38 | Outpatient (REF) | payer OTHER, SELFPAY ==
[2020-07-28 19:28] LABS: Anion Gap 8.2 mmol/L (3-11); BUN 8 mg/dL (7-18); CO2 28.8 mmol/L (21.0-32.0); CREATININE 1.17 mg/dL (0.70-1.30); Calcium 8.4 mg/dL (8.5-10.1); Chloride 102 mmol/L (98-107); Glucose 207 mg/dL (74-106); Magnesium 1.6 mg/dL (1.8-2.4); PHOSPHORUS 2.3 mg/dL (2.6-4.7); Sodium 139 mmol/L (136-145)
== END 2020-07-28 13:58 ==
LOC: NCHCN 13:38
PROVIDERS: PCP Family Medicine; Visit Provider Family Medicine
DX: E83.51 Hypocalcemia (principal); E83.42 Hypomagnesemia
CPT/HCPCS: 80048; 83735; 84100

== ENCOUNTER 2020-08-05 13:25 | Outpatient (REF) | payer OTHER, SELFPAY ==
[2020-08-05 14:54] LABS: Anion Gap 7.3 mmol/L (3-11); BUN 8 mg/dL (7-18); CO2 28.7 mmol/L (21.0-32.0); CREATININE 0.91 mg/dL (0.70-1.30); Chloride 103 mmol/L (98-107); Glucose 136 mg/dL (74-106); Magnesium 1.7 mg/dL (1.8-2.4); PHOSPHORUS 2.4 mg/dL (2.6-4.7); Potassium 4.1 mmol/L (3.5-5.1); Sodium 139 mmol/L (136-145)
== END 2020-08-05 13:45 ==
LOC: NCHCN 13:25
PROVIDERS: PCP Family Medicine; Visit Provider Family Medicine
DX: E83.42 Hypomagnesemia (principal); E83.51 Hypocalcemia
CPT/HCPCS: 80048; 83735; 84100

== ENCOUNTER 2020-08-10 15:56 | Outpatient (REF) | payer OTHER, SELFPAY ==
[2020-08-10 19:22] LABS: HCT 39.9 % (40.0-50.0); HGB 13.4 g/dL (13.5-17.5); MCH 26.6 pg (27.0-33.0); MCHC 33.6 % (32.0-36.0); MCV 79.3 fL (80-95); MPV 10.8 fL (8.0-11.0); Platelet Count 178 10^3/uL (130-400); RBC 5.03 10^6/uL (4.36-5.78); RDW 12.5 % (11.8-14.1); RDW-SD 35.5 fL; WBC 6.27 10^3/uL (4.4-10.8)
[2020-08-10 19:32] LABS: Iron 143 ug/dL (65-175); Total Iron Binding Capacity 293 ug/dL (250-450); Transferrin Sat 49 % (20-55)
[2020-08-10 19:46] LABS: Anion Gap 7.1 mmol/L (3-11); BUN 10 mg/dL (7-18); CO2 30.9 mmol/L (21.0-32.0); CREATININE 1.22 mg/dL (0.70-1.30); Calcium 8.6 mg/dL (8.5-10.1); Chloride 101 mmol/L (98-107); Ferritin 309 ng/mL (26-388); Glucose 137 mg/dL (74-106); Magnesium 1.4 mg/dL (1.8-2.4); Potassium 4.1 mmol/L (3.5-5.1); Sodium 139 mmol/L (136-145)
[2020-08-10 21:00] LABS: PHOSPHORUS 2.9 mg/dL (2.6-4.7)
[2020-08-12 08:44] LABS: PSA, Screening 0.6 ng/mL (0.0-4.5)
[2020-08-24 11:08] LABS: AGNA-1 Negative titer (<1:240); ANNA-1 Negative titer (<1:240); ANNA-2 Negative titer (<1:240); ANNA-3 Negative titer (<1:240); PCA-1 Negative titer (<1:240); PCA-2 Negative titer (<1:240); PCA-Tr Negative titer (<1:240); Striational (Striated Muscle) Negative titer (<1:120)
== END 2020-08-10 16:16 ==
LOC: NCHCN 15:56
PROVIDERS: PCP Family Medicine; Visit Provider Family Medicine
DX: E83.42 Hypomagnesemia (principal); E83.51 Hypocalcemia; Z12.5 Encounter for screening for malignant neoplasm of prostate
CPT/HCPCS: 80048; 84153; 85027; 86255; 82728; 83519; 83520; 83540; 83550; 83735; 84100; 86256

== ENCOUNTER 2020-08-18 01:15 | Outpatient (CLI) | payer OTHER, SELFPAY ==
[2020-08-18] MEDS: Omnipaque 350 MG/ML 100 ML BTL IJ (10:21)
[2020-08-18] MEDS: Normal Saline Flush 10 ML SYR IVP (10:22)
[2020-08-18] MEDS: Normal Saline - Diluent 50 ML VIAL IV (10:22)
--- NOTE | 2020-08-18 10:25 | DI.CT_ITS ---
EXAM: CT CHEST W CLINICAL HISTORY: HYPOMAGNESEMIA, E83.42. TECHNIQUE: Multi planar reconstructions were performed. CONTRAST MATERIAL: Omnipaque 350; 75 cc COMPARISON: CR XR CHEST 2V PA LATERAL from 04/17/2019 FINDINGS: CHEST: LUNGS: There is a 3 millimeter calcified granuloma the posterior aspect of right lower lobe. Another small noncalcified nodule measuring 3 millimeters is seen slightly higher up in the right lower lobe and another similar size noncalcified 2-3 millimeter nodule seen in the posterior segment of the rig ht upper lobe. Another 2 millimeter noncalcified nodule is seen in the lateral basal segment of the right lower lobe. There is no pleural effusion. In the opposite-left lung there are no significant focal findings nor pleural effusion. MEDIASTINUM: There is no hilar nor mediastinal adenopathy. Visualized thyroid unremarkable.The wall o f the esophagus appears slightly uniformly thickened, possibly significant. CARDIAC: Heart size is normal. There is no pericardial effusion.Caliber of the thoracic aorta is wit hin normal limits. VISUALIZED UPPER ABDOMEN:There are no significant adrenal masses. Hepatic steatosis noted. No splen omegaly. OSSEOUS: No significant osseous lesions.. IMPRESSION: 1. There are multiple small benign-appearing 3 millimeter nodules in the right lung, only 1 of which is calcified. These have benign appearance. Recommend follow-up noninfused CT scan in 6 months. 2. No intrathoracic adenopathy. No pleural effusions. 3. Hepatic steatosis incidentally noted. RADIATION DOSE DELIVERED: 789.61mGy.cm Total DLP DATA REPOSITORY: All CT scans at this facility are submitted to the National Radiology Data Registry (NRDR) Dose Index Registry (DIR) with the [employer] (A[employer]). RADIATION OPTIMIZATION: All CT scans at this facility use at least one of these dose optimization te chniques: automated exposure control; mA and/or kV adjustment per patient size (includes targeted exa ms where dose is matched to clinical indication); or iterative reconstruction.
== END 2020-08-18 01:35 ==
PROVIDERS: PCP Family Medicine; Visit Provider Family Medicine
DX: E83.42 Hypomagnesemia (principal); R91.8 Other nonspecific abnormal finding of lung field; K76.0 Fatty (change of) liver, not elsewhere classified
CPT/HCPCS: 71260; J3490

== ENCOUNTER 2020-08-25 22:31 | Outpatient (REF) | payer OTHER, SELFPAY ==
[2020-08-25 18:37] LABS: Anion Gap 8.6 mmol/L (3-11); BUN 11 mg/dL (7-18); CO2 30.4 mmol/L (21.0-32.0); CREATININE 1.15 mg/dL (0.70-1.30); Calcium 8.9 mg/dL (8.5-10.1); Chloride 101 mmol/L (98-107); Glucose 117 mg/dL (74-106); Magnesium 1.5 mg/dL (1.8-2.4); PHOSPHORUS 2.9 mg/dL (2.6-4.7); Potassium 4.2 mmol/L (3.5-5.1); Sodium 140 mmol/L (136-145)
== END 2020-08-25 22:51 ==
LOC: NCHCN 22:31
PROVIDERS: PCP Family Medicine; Visit Provider Family Medicine
DX: I10 Essential (primary) hypertension (principal); E83.42 Hypomagnesemia; E83.51 Hypocalcemia; R63.4 Abnormal weight loss
CPT/HCPCS: 80048; 83735; 84100

== ENCOUNTER 2020-09-05 15:23 | Outpatient (REF) | payer OTHER, SELFPAY ==
[2020-09-05 13:58] LABS: Anion Gap 11.5 mmol/L (3-11); BUN 9 mg/dL (7-18); CO2 26.5 mmol/L (21.0-32.0); CREATININE 1.21 mg/dL (0.70-1.30); Calcium 9.1 mg/dL (8.5-10.1); Chloride 100 mmol/L (98-107); Glucose 130 mg/dL (74-106); Magnesium 1.4 mg/dL (1.8-2.4); Potassium 3.9 mmol/L (3.5-5.1); Sodium 138 mmol/L (136-145)
[2020-09-05 17:08] LABS: Hemoglobin A1C 6.6 % (<5.7)
== END 2020-09-05 15:43 ==
LOC: NCHCN 15:23
PROVIDERS: PCP Family Medicine; Visit Provider Family Medicine
DX: I10 Essential (primary) hypertension (principal); E11.9 Type 2 diabetes mellitus without complications; E83.42 Hypomagnesemia
CPT/HCPCS: 80048; 83036; 83735

== ENCOUNTER 2020-09-06 02:46 | Outpatient (CLI) | payer OTHER, SELFPAY ==
[2020-09-07 17:18] LABS: COVID-19 RT-PCR UVMMC Result Negative (Negative)
== END 2020-09-06 03:06 ==
PROVIDERS: PCP Family Medicine; Visit Provider Surgery
DX: Z11.52 Encounter for screening for COVID-19 (principal); Z01.818 Encounter for other preprocedural examination
CPT/HCPCS: U0003

== ENCOUNTER 2020-09-09 08:07 | Day surgery (SDC) | payer OTHER, SELFPAY ==
[2020-09-09 08:21] VITALS: BP 152/91; PULSE 72; RESP 18; TEMP 36.2; O2SAT 95
[2020-09-09] MEDS: Lactated Ringers 1,000 ML 80 ML IV (08:43)
--- NOTE | 2020-09-09 09:45 | ESO_PTH ---
PATIENT: Yury Hoffmann LOC: [facility] U#:[id number] AGE/SX: 64/M ROOM: RE09/09/[address]: Francy Diaz : 1955 BED: DIS: 09/09/2020 SPEC #: [id number] RECD: 09/09/20 12:20 STATUS: OBDULIO RELois #: [id number] GIN: 09/09/20 09:[address]: Francy Diaz DEPT: Surgical Specimen RECD BY: Dior Aguirre ENTERED: 09/09/20 12:22 SP TYPE: Destinyo MARIE DR: Lora Glasgow Tissues: 1 - BIOPSY BOWEL 2 - STOMACH BIOPSY 3 - STOMACH BIOPSY 4 - ESOPHAGUS BIOPSY 5 - ESOPHAGUS BIOPSY 6 - BIOPSY BOWEL Procedures: GROSS AND MICRO LEVEL 4 Comments: [id number]
--- NOTE | 2020-09-09 10:37 | W.PM.ENDDOP ---
Date of service: 09/09/20 Time of Service: 10:37 Endoscopy Report DATE OF PROCEDURE: 09/09/20 PRE-OP DIAGNOSIS: hx of garcia's POST-OP DIAGNOSIS: same (Esophagitis and gastritis) SURGEON: Francy Diaz ANESTHESIA: MAC ESTIMATED BLOOD LOSS: 2 PATHOLOGY: other COMPLICATIONS: None DISPOSITION: same day PROCEDURE DESCRIPTION: After informed consent was obtained the patient was take to the procedure room and placed in a supine position. Monitors were applied and a time out was done. The patients name, date of , procedure type, allergies to medications and metal in their body was reviewed. A bite block was placed and the patient was sedated. Once sedated and comfortable the gastroscope was advanced through the oropharynlnx which was grossly normal into the esophagus. The proximal and mid-esophagus were nl. In the distal esophagus there was noted. The scope was advanced into the stomach and through the pylorus into the 3rd portion of the duodenum. The duodenum was noted to be . Biopsies were done all specimens retrieved and no bleeding is noted. The scope was retracted back into the stomach and biopsies were done to rule out H. pylori. There were no ulcers. there is moderate gastritis in the antral region and straight fashion. There are no discrete ulcers noted. The scope was retroflexed. The cardia and fundus were noted to be normal. There no a hiatal hernia noted. The scope was retracted back into the esophagus and biopsies were done of the GE junction to rule out Garcia's. Z-line is irregular. There are signs of what appears to be chronic Garcia's noted the scope at GE junction. This was visualized under NBI. There does appear to be one tongue of Garcia's at the 5 o'clock position less than 2 cm. Multiple biopsies are done at the GE junction. There is also chronic esophagitis at the GE junction. All specimens are retrieved and no bleeding is noted. There is no ulcers or varices noted. the scope Was removed and the patient was woken up and taken back to [facility] in stable condition.
--- NOTE | 2020-09-09 10:46 | COLE_ITS ---
Date of service: 09/09/20 Time of Service: 10:46 Colonoscopy Report Date of procedure: 09/09/20 Pre-op diagnosis general: hx of polyps Post-op diagnosis procedure note: same Surgeon: Francy Diaz Anesthesia proc note operative: MAC Estimated blood loss (mL): 2 Procedure Description: After informed consent was obtained the patient was taken to the procedure room and placed in a left decubitous position. Monitors were applied and a time out was done. The patients name, date of , procedure, allergies to medications and metal in their body was reviewed. The patient was then sedated. Once sedated and comfortable a rectal exam was done. External exam was normal. Internal exam revealed a normal sphincter tone and no palpable masses. The scope was then introduced and retrofelexed. No internal hemorrhoids were identified. The scope was then advanced to the cecum w/out difficulty. The TI and appendiceal orifice were identified. The prep was adequate. The scope was then slowly retracted over [] minutes back into the rectum. Polyps were removed at 80 cm. It is a 1 cm pedunculated polyp. This is removed with a hot poly pectomy snare. All specimen is retrieved and no bleeding is noted. The colon is very tortuous and he is an extremely difficult scope. There is very poor tone in the colon. I am unable to drop into the cecum. But I can see into the cecum. There are no large masses. Any small polyp may have been missed. No AVMs or diverticula are noted. All specimen is retrieved and no bleeding is noted.. th e scope was removed and the patient was woken up and taken back to Same day surgery in stable condition. The patient tolerated the procedure well and there were no immediate complications. Follow up: The patient should follow up in 5-7 years unless they develop changes in bowel habits or other new gastrointestinal complaints.
--- NOTE | 2020-09-09 10:51 | W.PM.DSUDISC ---
Discharge Plan Disposition Patient Disposition: HOME Condition: Good Discharge Details Reason For Visit: stomach and colon scope Attending Provider: Francy Diaz Primary Care Provider: Lora Glasgow Home Meds and New Rx's Prescriptions: Continued betamethasone dipropionate 0.05 % cream 1 applic TP BID PRNRF: 0 morphine 15 mg tablet extended release 15 mg PO DAILY RF: 0 pregabalin [Lyrica] 100 mg capsule 100 mg PO BID RF: 0 cholecalciferol (vitamin D3) 2,000 unit capsule 2,000 unit PO DAILY RF: 0 cyanocobalamin (vitamin B-12) 2,000 mcg tablet 2,000 mcg PO DAILY RF: 0 magnesium oxide 400 mg magnesium capsule 400 mg PO BID RF: 0 aspirin [Adult Low Dose Aspirin] 81 mg tablet,delayed release (DR/EC) 81 mg PO DAILY RF: 0 fluoxetine 40 mg capsule 60 mg PO DAILY RF: 0 cyclobenzaprine 10 mg tablet 10 mg PO TID RF: 0 levetiracetam [Keppra] 1,000 mg tablet 1,000 mg PO TID RF: 0 Dexilant 60 mg capsule,biphase delayed releas 60 mg PO DAILY RF: 0 metoprolol succinate [Toprol XL] 200 MG tablet extended release 24 hr 200 mg PO DAILY RF: 0 atorvastatin 40 MG tablet 40 mg PO DAILY RF: 0 metformin 500 MG tablet extended release 24hr 1,000 mg PO DAILY RF: 0 hydrocodone-acetaminophen [Vicodin HP] 1 EACH tablet 2 ea PO Q6H PRN PRNRF: 0 albuterol sulfate [ProAir HFA] 90 mcg/actuation HFA aerosol inhaler 2 puff Inhalation Q6H PRNRF: 0 folic acid 1 mg Tablet 1 mg PO DAILY RF: 0 losartan 50 mg tablet 50 mg PO DAILY RF: 0 hydroxyzine HCl 50 mg tablet 100 mg PO HS RF: 0 Victoza 3-Alexi 0.6 mg/0.1 mL (18 mg/3 mL) Pen Injector 1.2 mg SUBCUT Q24H RF: 0 Discontinued polyethylene glycol 3350 17 gram/dose powder 238 g PO ONCE Qty: 238 RF: 0 bisacodyl [Dulcolax (bisacodyl)] 5 mg tablet,delayed release (DR/EC) 5 mg PO ONCE Qty: 4 RF: 0 Discharge Instructions Additional Instructions: Findings:Barretts/gastritis- stomach colon: polyps x1 Continue with lifestyle modifications: no alcohol, tobacco products, Aspirin or NSAID's (ibuprofen, Motrin, Naprosyn, aleve, etc), soda pop/any carbonated beverages, caffeine (including tea & chocolate), and acidic foods, (tomatoes, citrus, onions, peppermints) spicy foods. Do not lie down for 30 minutes after eating, and do not eat 2 hours prior to bedtime. Avoid wearing tight fitting clothing/ belts Follow up:Will send a letter in 2-3 wks w/ results of the biopsy and when to repeat the scope. Please call if you develop: fevers >101.5 Nausea or Vomiting Abdominal pain that is not transient DAY SURGERY UNIT POST COLONOSCOPY INSTRUCTIONS 1. Because there will be medication in your system for the next 24 hours, you may feel a little sleepy. Your coordination will be affected. Therefore: a. Do not drive or operate dangerous equipment for 24 hours. b. Do not drink alcohol beverages for 24 hours (not even beer). c. Plan to go home and rest for the day. 2. Generally there are no restrictions on your activity after a day or so has gone by, but you may feel a bit fatigued for a few days. 3 After you arrive home you may have a light meal and return to a normal diet as you can tolerate it without feeling sick to your stomach. 4. After surgery, you may feel pain or discomfort. This should be only transient, but if it persists please contact your doctor. 5. If there are any questions regarding the findings of your procedure, please feel free to contact your doctor. 6. If you are unable to contact your doctor with a problem, contact the hospital at [phone]. 7. Continue all your regular medications unless directed otherwise. I understand the above instructions and have no questions. Signature of Patient or Responsible Adult Escort Date/Time Name of Responsible Adult Escort Signature of Nurse Date/Time Activity:: no lifting over 20#'s or strenuous activity x 24 hrs Diet:: small light meals x 24 hrs Discharge Orders Discharge Orders: Discharge Order (Routine); Ordered 09/09/20 Ordered By: Francy Diaz DS: Diagnosis Discharge Diagnosis (1) Barretts esophagus: Status: Chronic (2) Tubular adenoma of colon: Status: Acute (3) Gastritis: Status: Acute
[2020-09-09 11:07] VITALS: BP 151/84; PULSE 69; RESP 18; TEMP 36.3; O2SAT 95
== END 2020-09-09 12:23 | disposition home or self-care (01) ==
PROVIDERS: PCP Family Medicine; Visit Provider Surgery
PROC: (CPT 45380; principal; 2020-09-09 09:00)
DX: Z87.19 Personal history of other diseases of the digestive system (principal); Z12.11 Encounter for screening for malignant neoplasm of colon; K31.89 Other diseases of stomach and duodenum; K21.00 Gastro-esophageal reflux disease with esophagitis, without bleeding; D12.6 Benign neoplasm of colon, unspecified; K29.70 Gastritis, unspecified, without bleeding; K22.70 Barrett's esophagus without dysplasia; Z86.010 Personal history of colon polyps; Q43.8 Other specified congenital malformations of intestine; G47.33 Obstructive sleep apnea (adult) (pediatric); J44.9 Chronic obstructive pulmonary disease, unspecified; E11.9 Type 2 diabetes mellitus without complications
CPT/HCPCS: 45380; 43239; 88305; J2001

== ENCOUNTER 2020-09-27 16:11 | Outpatient (REF) | payer OTHER, SELFPAY ==
[2020-09-27 18:46] LABS: Anion Gap 8.7 mmol/L (3-11); BUN 9 mg/dL (7-18); CO2 29.3 mmol/L (21.0-32.0); Chloride 101 mmol/L (98-107); Glucose 117 mg/dL (74-106); Magnesium 1.6 mg/dL (1.8-2.4); Potassium 4.1 mmol/L (3.5-5.1); Sodium 139 mmol/L (136-145)
== END 2020-09-27 16:12 | disposition home or self-care (01) ==
LOC: NCHCN 16:11
PROVIDERS: PCP Family Medicine; Visit Provider Family Medicine
DX: E83.42 Hypomagnesemia (principal)
CPT/HCPCS: 80048; 83735

== ENCOUNTER 2020-10-03 00:30 | Outpatient (CLI) | payer OTHER, SELFPAY ==
--- NOTE | 2020-10-03 | DI.US_ITS ---
EXAM: US THYROID CLINICAL HISTORY: RECENT WT LOSS, R63.4,PULMONARY NODULES, ? THYROID CA. TECHNIQUE: Ultrasound thyroid performed using standard protocol. COMPARISON: Chest CT scan 08/18/2020 was reviewed FINDINGS: Both thyroid lobes exhibit normal size and homogeneous echo architecture, as does the isthmus. Right thyroid lobe measures 12 x 21 x 4 cm. Left thyroid lobe measures 13 x 16 by 3 cm. Thickness of the isthmus is 3-4 millimeter, within normal limits. There are no nodules in either thyroid lobe. No adenopathy evident IMPRESSION: Normal ultrasound appearance of the thyroid gland. No nodules evident. Normal gland size. DATA REPOSITORY:
== END 2020-10-03 00:31 ==
LOC: DI 00:30
PROVIDERS: PCP Family Medicine; Visit Provider Family Medicine
DX: R63.4 Abnormal weight loss (principal); R91.8 Other nonspecific abnormal finding of lung field
CPT/HCPCS: 76536

== ENCOUNTER 2020-10-05 01:13 | Outpatient (CLI) | payer OTHER, SELFPAY ==
--- NOTE | 2020-10-05 | DI.CT_ITS ---
EXAM: CT ABDOMEN PELVIS W CLINICAL HISTORY: RECENT WT LOSS,R63.4,PULMONARY NODULES,R91.8,? RENAL, LIVER,PANCREATIC CA. TECHNIQUE: Imaging Protocol: Axial computed tomography images with coronal and sagittal reformatted images were created and reviewed CONTRAST MATERIAL: Intravenous: Omnipaque 100cc Oral: None COMPARISON: CT CT BRAIN NECK CTA from 04/17/2019 FINDINGS: VISUALIZED LUNG BASES: There is a 3 millimeter calcified granuloma posteriorly in the right lower lob e. There is some infiltrate in the posterior basal segment of the left lower lobe noted. There are no pleural effusions.. ABDOMEN: There is no ascites. LIVER: There are no obvious focal hepatic lesions evident . GALLBLADDER/BILIARY: No obvious gallbladder pathology. CBD is not dilated. PANCREAS: No evidence of pancreatic mass nor dilatation of the pancreatic duct. SPLEEN: Spleen is not enlarged. No obvious intrasplenic lesions. Splenic and portal veins are paten t. ADRENALS: There are no significant adrenal masses. KIDNEYS:No cysts evident. No solid renal masses. No calculi nor hydronephrosis.. ABDOMINAL AORTA: The abdominal aorta exhibits mild fusiform infrarenal dilatation. Although the maxi mum external diameter is 2.6 cm, there does appear to be lack of normal tapering of the distal abdomi nal aorta. There is aneurysmal dilatation of the distal right common iliac artery with a diameter of 1.9 cm. More proximal aspect of this vessel is 1.4 cm, similar to the opposite side. Both common i liac arteries are heavily calcified. ABDOMINAL WALL/GI: No evidence of significant anterior abdominal wall hernia. No bowel obstruction. PELVIS: GI: There is some hyperdense material in the appendix but no evidence of acute appendicitis.No eviden ce of sigmoid diverticulitis.Sigmoid is redundant. LYMPH NODES: There is no intrapelvic nor inguinal adenopathy. REPRODUCTIVE: Prostate gland is not enlarged. Seminal vesicles unremarkable. URINARY BLADDER: Not distended. No obvious masses no radiopaque calculi seen in the bladder lumen. OSSEOUS: No significant osseous lesions. IMPRESSION: 1. 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 9 cm at this level. Both common iliac arteries are heavily calcified. 2. There is also atherosclerotic involvement of distal abdominal aorta with lack of normal tapering a t this level. Maximum diameter of the abdominal aorta is 2.6 cm at this level. 3. Some infiltrate is noted in the posterior basal segment of the left lower lobe. No pleural effusi on 4. Hyperdense material in the appendix but no evidence of acute appendicitis. No evidence of sigmoid diverticulitis. RADIATION DOSE DELIVERED: 1,271.01mGy.cm Total DLP DATA REPOSITORY: All CT scans at this facility are submitted to the National Radiology Data Registry (NRDR) Dose Index Registry (DIR) with the [employer] (A[employer]). RADIATION OPTIMIZATION: All CT scans at this facility use at least one of these dose optimization te chniques: automated exposure control; mA and/or kV adjustment per patient size (includes targeted exa ms where dose is matched to clinical indication); or iterative reconstruction.
[2020-10-05] MEDS: Omnipaque 350 MG/ML 50 ML BTL IJ (09:22)
[2020-10-05] MEDS: Breeza Beverage 473 ML BTL PO ×2 (09:24→09:25)
[2020-10-05] MEDS: Normal Saline - Diluent 50 ML VIAL IV (10:17)
[2020-10-05] MEDS: Omnipaque 350 MG/ML 100 ML BTL IV (10:17)
[2020-10-05] MEDS: Normal Saline Flush 10 ML SYR IVP (10:18)
== END 2020-10-05 01:14 ==
LOC: DI 01:14
PROVIDERS: PCP Family Medicine; Visit Provider Family Medicine
DX: R63.4 Abnormal weight loss (principal); R91.8 Other nonspecific abnormal finding of lung field; E83.42 Hypomagnesemia; I72.3 Aneurysm of iliac artery
CPT/HCPCS: 74177; J3490; Q9967

== ENCOUNTER 2020-10-26 13:27 | Outpatient (CLI) | payer OTHER, SELFPAY ==
[2020-10-26 15:48] LABS: Anion Gap 8.9 mmol/L (3-11); BUN 8 mg/dL (7-18); CO2 29.1 mmol/L (21.0-32.0); CREATININE 1.1 mg/dL (0.70-1.30); Calcium 8.6 mg/dL (8.5-10.1); Chloride 101 mmol/L (98-107); Glucose 116 mg/dL (74-106); Magnesium 1.5 mg/dL (1.8-2.4); Potassium 4.4 mmol/L (3.5-5.1); Sodium 139 mmol/L (136-145)
== END 2020-10-26 13:28 | disposition home or self-care (01) ==
PROVIDERS: PCP Family Medicine; Visit Provider Family Medicine
DX: R63.4 Abnormal weight loss (principal); E83.42 Hypomagnesemia
CPT/HCPCS: 36415; 80048; 83735

== ENCOUNTER 2021-02-15 10:34 | Outpatient (REF) | payer OTHER, SELFPAY ==
[2021-02-15 13:57] LABS: Magnesium 1.4 mg/dL (1.8-2.4)
[2021-02-15 15:38] LABS: COMMENT (LAB VIEW ONLY) 504.81 mg/dL; Microalb ug/mg Crea 5.8 ug/mg Cr
[2021-02-16 15:20] LABS: Anion Gap 8.8 mmol/L (3-11); BUN 6 mg/dL (7-18); CO2 29.2 mmol/L (21.0-32.0); Calcium 8.3 mg/dL (8.5-10.1); Chloride 105 mmol/L (98-107); Glucose 121 mg/dL (74-106); Potassium 3.9 mmol/L (3.5-5.1); Sodium 143 mmol/L (136-145)
== END 2021-02-15 10:35 | disposition home or self-care (01) ==
LOC: NCHCN 10:34
PROVIDERS: PCP Family Medicine; Visit Provider Family Medicine
DX: E83.42 Hypomagnesemia (principal); E11.9 Type 2 diabetes mellitus without complications; E83.51 Hypocalcemia
CPT/HCPCS: 80048; 82043; 82570; 83735

== ENCOUNTER 2021-05-18 11:00 | Outpatient (CLI) | payer OTHER, SELFPAY ==
--- NOTE | 2021-05-18 10:15 | DI.RAD_ITS ---
Exam(s) XR KNEE LT 4V AP,LAT,NATALYA,PAT EXAM: XR KNEE LT 4V AP,LAT,NATALYA,PAT CLINICAL HISTORY: pain. TECHNIQUE: 2D digital imaging was performed of the left knee. Four images were obtained. AP, later al, Merchant and PA tunnel views were obtained. COMPARISON: No previous for comparison. FINDINGS: BONES: No acute fracture is present. No bony destructive lesion is seen. There is an enthesophyte at the superior patella. JOINTS: The knee is normally aligned. No joint effusion is seen. There is moderate narrowing of the m edial joint compartment. There is mild periarticular spurring at the lateral femoral tibial joint an d the patellofemoral joint. SOFT TISSUE: Atherosclerosis. IMPRESSION: Osteoarthritis of the left knee. DATA REPOSITORY: RADIATION DOSE DELIVERED:
--- NOTE | 2021-05-18 10:15 | DI.RAD_ITS ---
Exam(s) XR KNEE RT 4V AP,LAT,NATALYA,PAT EXAM: XR KNEE RT 4V AP,LAT,NATALYA,PAT CLINICAL HISTORY: pain. TECHNIQUE: 2D digital imaging was performed of the right knee. Four views obtained. AP, lateral, Me rchant and PA tunnel views were obtained. COMPARISON: No previous for comparison. FINDINGS: BONES: No acute fracture is present. No bony destructive lesion is seen. Enthesophytes are seen at th e superior and inferior patella. JOINTS: The knee is normally aligned. No joint effusion is seen. Mild periarticular spurring is seen at the posterior patella. There is [id number] narrowing of the medial femoral tibial joint spa ce. SOFT TISSUE: Atherosclerosis. IMPRESSION: Osteoarthritis of the right knee. DATA REPOSITORY: RADIATION DOSE DELIVERED:
== END 2021-05-18 11:01 | disposition home or self-care (01) ==
LOC: DIORS 11:01
PROVIDERS: PCP Family Medicine; Referring Provider Family Medicine; Visit Provider Physician Assistant Surgical
DX: M25.561 Pain in right knee (principal); M25.562 Pain in left knee; M17.0 Bilateral primary osteoarthritis of knee
CPT/HCPCS: 73564

== ENCOUNTER 2021-08-03 19:12 | Outpatient (REF) | payer OTHER, SELFPAY ==
[2021-08-03 14:51] LABS: HCT 40.3 % (40.0-50.0); HGB 13.5 g/dL (13.5-17.5); MCH 28.9 pg (27.0-33.0); MCHC 33.5 % (32.0-36.0); MCV 86.3 fL (80-95); MPV 10.8 fL (8.0-11.0); Platelet Count 179 10^3/uL (130-400); RBC 4.67 10^6/uL (4.36-5.78); RDW 12.8 % (11.8-14.1); RDW-SD 40.2 fL; WBC 6.05 10^3/uL (4.4-10.8)
[2021-08-03 16:00] LABS: Hemoglobin A1C 6.1 % (<5.7)
[2021-08-03 16:37] LABS: ALT 32 U/L (16-63); AST 31 U/L (15-37); Albumin 3.3 g/dL (3.4-5.0); Alkaline Phosphatase 84 U/L (46-116); Anion Gap 6.2 mmol/L (3-11); BUN 7 mg/dL (7-18); Bilirubin, Total 0.5 mg/dL (0.2-1.0); CO2 30.8 mmol/L (21.0-32.0); CREATININE 0.9 mg/dL (0.70-1.30); Calcium 8.5 mg/dL (8.5-10.1); Calculated LDL 31 mg/dL (<100); Chloride 106 mmol/L (98-107); Cholesterol 89 mg/dL (<200); Glucose 120 mg/dL (74-106); HDL Cholesterol 36 mg/dL (40-60); Magnesium 1.7 mg/dL (1.8-2.4); Potassium 4.6 mmol/L (3.5-5.1); Sodium 143 mmol/L (136-145); Total Protein 6.5 g/dL (6.4-8.2); Triglyceride 113 mg/dL (<150); Vitamin B12 371 pg/mL (193-986)
[2021-08-03 17:00] LABS: PHOSPHORUS 2.6 mg/dL (2.6-4.7)
== END 2021-08-03 19:13 | disposition home or self-care (01) ==
LOC: NCHCN 19:12
PROVIDERS: PCP Family Medicine; Visit Provider Family Medicine
DX: E11.9 Type 2 diabetes mellitus without complications (principal); E83.51 Hypocalcemia; E83.42 Hypomagnesemia; I25.10 Atherosclerotic heart disease of native coronary artery without angina pectoris
CPT/HCPCS: 80053; 80061; 85027; 82607; 83036; 83735; 84100

== ENCOUNTER 2022-05-10 15:38 | Outpatient (REF) | payer OTHER, SELFPAY ==
[2022-05-10 22:36] LABS: Albumin ug/mg Crea 20 (<30); Albumin, Ur 3.6 mg/dL (See Note); Creatinine, Ur 177.7 mg/dL (See Note)
== END 2022-05-10 15:39 | disposition home or self-care (01) ==
LOC: NCHCN 15:38
PROVIDERS: PCP Family Medicine; Visit Provider Family Medicine
DX: E11.9 Type 2 diabetes mellitus without complications (principal)
CPT/HCPCS: 82043; 82570

== ENCOUNTER 2022-06-04 00:59 | Outpatient (CLI) | payer OTHER, SELFPAY ==
--- NOTE | 2022-06-04 07:45 | DI.MRI_ITS ---
Exam(s) MR CERVICAL SPINE WO EXAM: MR CERVICAL SPINE WO CLINICAL HISTORY: CHRONIC NECK PAIN, M54.2; DISH, M48.10; PARESTHESIA, R20.9 TECHNIQUE: Multiplanar multisequence MRI of the cervical spine was performed without intravenous con trast. COMPARISON: CT CT BRAIN NECK CTA from 04/17/2019 FINDINGS: BONES: Vertebral body heights are maintained. DISH is seen in the cervical spine. Intervertebral di sc spaces are normal. There is straightening of the normal cervical lordosis. Bone marrow signal int ensity is within normal limits. CERVICAL CORD: Craniovertebral junction is unremarkable. The cervical cord is normal size and signal intensity. SOFT TISSUES: Unremarkable. C2-3: No disc herniation or bulge is identified. Mild hypertrophic changes are seen of the uncoverteb ral joints, left greater than right. The resultant narrowing is mild on the left and right. No sign ificant central spinal canal stenosis is seen. C3-4: No disc herniation or bulge is identified. Mild degenerative changes of the facets are seen. N o significant central spinal canal stenosis is seen. There is mild narrowing of the right neural for amen. No significant left neural foraminal stenosis is present. C4-5: No disc herniation or bulge is identified. No significant central spinal canal or neural forami nal stenosis C5-6: There is prominence of the osteophyte disc complex. It causes mild central spinal canal narrow ing. The AP diameter is 8 mm. There is a mild impression on the anterior spinal cord. There is nor mal signal in the spinal cord. There are degenerative changes of the uncovertebral joints, right gre ater than left. There is mild bilateral neural foraminal narrowing present. C6-7: No diffuse disc bulge. Mild hypertrophic changes are seen at the left uncovertebral joints cau sing [id number] left neural foraminal stenosis. No significant central spinal canal or right n eural foraminal stenosis is present. C7-T1: There is a mild disc bulge. No significant central spinal canal or neural foraminal stenosis IMPRESSION: 1. Multilevel degenerative changes in the cervical spine resulting in central spinal canal and neural foraminal stenosis as described above. 2. The findings are most marked at the C5-6 level where there is central spinal canal and neural fora lyla stenosis. 3. Normal signal is seen in the spinal cord. DATA REPOSITORY:
== END 2022-06-04 01:19 ==
LOC: DI 01:22
PROVIDERS: PCP Family Medicine; Visit Provider Family Medicine
DX: M47.812 Spondylosis without myelopathy or radiculopathy, cervical region (principal)
CPT/HCPCS: 72141

== ENCOUNTER 2022-08-31 15:37 | Outpatient (REF) | payer OTHER, SELFPAY ==
[2022-08-31 15:40] LABS: HCT 42.5 % (40.0-50.0); HGB 14.9 g/dL (13.5-17.5); MCH 32.5 pg (27.0-33.0); MCHC 35.1 % (32.0-36.0); MCV 93 fL (80-95); MPV 11.9 fL (8.0-11.0); Platelet Count 174 10^3/uL (130-400); RBC 4.59 10^6/uL (4.36-5.78); RDW 12.9 % (11.8-14.1); RDW-SD 44.2 fL; WBC 8.99 10^3/uL (4.4-10.8)
[2022-08-31 16:16] LABS: ALT 31 U/L (16-63); AST 78 U/L (15-37); Albumin 3.2 g/dL (3.4-5.0); Alkaline Phosphatase 135 U/L (46-116); Anion Gap 11.3 mmol/L (3-11); BUN 6 mg/dL (7-18); Bilirubin, Total 0.4 mg/dL (0.2-1.0); CO2 25.7 mmol/L (21.0-32.0); Calcium 8.1 mg/dL (8.5-10.1); Chloride 101 mmol/L (98-107); Estimated GFR 84.05 (mL/min/1.73m2); Glucose 186 mg/dL (74-106); Magnesium 1.3 mg/dL (1.8-2.4); Potassium 3.5 mmol/L (3.5-5.1); Sodium 138 mmol/L (136-145); Total Protein 7.4 g/dL (6.4-8.2)
[2022-08-31 22:57] LABS: Estimated Average Glucose 137 mg/dL; Hemoglobin A1C 6.4 % (<5.7)
== END 2022-08-31 15:38 | disposition home or self-care (01) ==
LOC: NCHCN 15:37
PROVIDERS: PCP Family Medicine; Visit Provider Family Medicine
DX: E11.9 Type 2 diabetes mellitus without complications (principal); E83.42 Hypomagnesemia; R20.2 Paresthesia of skin; I10 Essential (primary) hypertension
CPT/HCPCS: 80053; 85027; 83036; 83735

== ENCOUNTER 2022-09-12 17:55 | Outpatient (REF) | payer OTHER, SELFPAY ==
[2022-09-12 16:17] LABS: Ferritin 543 ng/mL (26-388); TSH (W/Ref FT4) 5.18 uIU/mL (0.36-3.74)
[2022-09-12 16:24] LABS: Vitamin D 25 Total 34.2 ng/mL (30-100)
[2022-09-12 17:12] LABS: FREE T4 0.96 ng/dL (0.76-1.46)
[2022-09-13 19:28] LABS: Parathyroid Hormone,Intact 83 pg/mL (19-88)
== END 2022-09-12 17:56 | disposition home or self-care (01) ==
LOC: NCHCN 17:55
PROVIDERS: PCP Family Medicine; Visit Provider Family Medicine
DX: E83.51 Hypocalcemia (principal); E03.9 Hypothyroidism, unspecified; G25.81 Restless legs syndrome; R79.89 Other specified abnormal findings of blood chemistry
CPT/HCPCS: 82306; 82728; 83970; 84439; 84443

== ENCOUNTER 2023-03-11 18:06 | Outpatient (REF) | payer OTHER, SELFPAY ==
[2023-03-11 19:00] LABS: HCT 43.4 % (40.0-50.0); HGB 14.8 g/dL (13.5-17.5); MCH 31.6 pg (27.0-33.0); MCHC 34.1 % (32.0-36.0); MCV 93 fL (80-95); MPV 12.5 fL (8.0-11.0); Platelet Count 128 10^3/uL (130-400); RBC 4.68 10^6/uL (4.36-5.78); RDW 13.2 % (11.8-14.1); RDW-SD 45.1 fL; WBC 8.03 10^3/uL (4.4-10.8)
[2023-03-11 19:13] LABS: Microalb ug/mg Crea 9.6 ug/mg Cr
[2023-03-11 19:15] LABS: Hemoglobin A1C 6.6 % (<5.7)
[2023-03-11 19:27] LABS: ALT 24 U/L (16-63); AST 33 U/L (15-37); Albumin 3.2 g/dL (3.4-5.0); Alkaline Phosphatase 118 U/L (46-116); Anion Gap 7.9 mmol/L (3-11); BUN 6 mg/dL (7-18); Bilirubin, Total 0.6 mg/dL (0.2-1.0); CO2 30.1 mmol/L (21.0-32.0); CREATININE 0.9 mg/dL (0.70-1.30); Calcium 8.5 mg/dL (8.5-10.1); Chloride 102 mmol/L (98-107); Estimated GFR 94.78 (mL/min/1.73m2); Glucose 159 mg/dL (74-106); Potassium 3.9 mmol/L (3.5-5.1); Sodium 140 mmol/L (136-145); TSH (W/Ref FT4) 0.97 uIU/mL (0.36-3.74)
[2023-03-11 20:09] LABS: Vitamin B12 222 pg/mL (193-986)
== END 2023-03-11 18:07 | disposition home or self-care (01) ==
LOC: NCHCN 18:06
PROVIDERS: PCP Family Medicine; Visit Provider Family Medicine
DX: E11.9 Type 2 diabetes mellitus without complications (principal); I10 Essential (primary) hypertension; E03.9 Hypothyroidism, unspecified; R20.2 Paresthesia of skin; R94.6 Abnormal results of thyroid function studies
CPT/HCPCS: 80053; 85027; 82043; 82570; 82607; 82746; 83036; 84443

== ENCOUNTER 2023-05-31 04:45 | Inpatient (IN) | payer OTHER, SELFPAY ==
[2023-05-31] VITALS (121 sets, daily range): BP systolic 109–214; BP diastolic 29–186; PULSE 58–135; RESP 6–26; TEMP 36.3–36.5; O2SAT 95–98
--- NOTE | 2023-05-31 04:45 | RT.EKG_ITS ---
APPROVED REPORT Exam: Resting ECG Reason for Exam: left sided weakness Patient Location: E HR:63 bpm ECG Measurements Heart Rate 63 AXIS CA 213 P 58 QRSd 87 QRS 52 QT 399 T 27 QTc 409 Conclusion Sinus rhythm...normal P axis, V-rate 60- 99 Borderline prolonged CA interval...CA >212, V-rate 50- 90 No change vs 08/07
--- NOTE | 2023-05-31 05:15 | DI.CT_ITS ---
Exam(s) CT HEAD - STROKE PROTOCOL EXAM: CT HEAD - STROKE PROTOCOL CLINICAL HISTORY: L sided weakness, R eye pain/headache. TECHNIQUE: Imaging Protocol: Axial computed tomography images with coronal and sagittal reformatted images were created and reviewed COMPARISON: CT CT BRAIN NECK CTA from 04/17/2019 FINDINGS: Exam limited by streak artifact from metallic densities outside the patient. Ventricles and Extra axial spaces: Normal in size and morphology for the patient's age. Hemorrhage: None. Cerebral parenchyma: Old left frontal infarct noted. Area of acute/subacute infarct in the right par ietal lobe, MCA territory. No left-sided infarcts. No evidence of mass. Mild underlying atrophy. White matter changes of small vessel disease. Midline shift: None. Brainstem/Cerebellum: Normal. Calvarium: Normal. Visualized Paranasal sinuses/Mastoids: Clear. Soft Tissues: Unremarkable. IMPRESSION: Acute/subacute infarct right parietal lobe, MCA distribution. Old right frontal lobe infarct, MCA distribution. No hemorrhage. RADIATION DOSE DELIVERED: Total DLP DATA REPOSITORY: All CT scans at this facility are submitted to the National Radiology Data Registry (NRDR) Dose Index Registry (DIR) with the [employer] (ACR). RADIATION OPTIMIZATION: All CT scans at this facility use at least one of these dose optimization te chniques: automated exposure control; mA and/or kV adjustment per patient size (includes targeted exa ms where dose is matched to clinical indication); or iterative reconstruction.
[2023-05-31 05:17] LABS: Abs Immature Grans 0.02 10^3/uL (0.0-0.06); Absolute Basophil Count 0.07 10^3/uL (0.0-0.2); Absolute Eosinophil Count 0.09 10^3/uL (0.0-0.7); Absolute Lymphocyte Count 2.26 10^3/uL (1.2-3.4); Absolute Monocyte Count 0.76 10^3/uL (0.1-0.8); Absolute Neutrophil Count 5.28 10^3/uL (1.2-6.7); Basophils % 0.8; Eosinophils % 1.1; HCT 47.8 % (40.0-50.0); HGB 16.1 g/dL (13.5-17.5); Immature Grans % 0.2; Lymphocytes % 26.7; MCH 29.7 pg (27.0-33.0); MCHC 33.7 % (32.0-36.0); MCV 88 fL (80-95); MPV 10.7 fL (8.0-11.0); Neutrophils % 62.2; Platelet Count 192 10^3/uL (130-400); RBC 5.42 10^6/uL (4.36-5.78); RDW 13.7 % (11.8-14.1); RDW-SD 44.4 fL; WBC 8.48 10^3/uL (4.4-10.8)
[2023-05-31 05:23] LABS: INR 1.5 (0.9-1.1); Prothrombin Time 14.8 sec (9.1-11.1)
[2023-05-31 05:26] LABS: ALT 29 U/L (16-63); AST 39 U/L (15-37); Albumin 3.9 g/dL (3.4-5.0); Alkaline Phosphatase 133 U/L (46-116); Anion Gap 5.9 mmol/L (3-11); BUN 7 mg/dL (7-18); Bilirubin, Total 0.9 mg/dL (0.2-1.0); CO2 32.1 mmol/L (21.0-32.0); Calcium 9.4 mg/dL (8.5-10.1); Chloride 100 mmol/L (98-107); Estimated GFR 83.52 (mL/min/1.73m2); Glucose 199 mg/dL (74-106); Potassium 3.8 mmol/L (3.5-5.1); Sodium 138 mmol/L (136-145); Total Protein 8.3 g/dL (6.4-8.2)
--- NOTE | 2023-05-31 05:27 | ED.GENADUL_ITS ---
Discharge Plan Disposition Condition: Improving Discharge Details Chief Complaint: CVA/TIA Admit Date/Time: 05/31/23 11:02 Admit Provider: Yury Marroquin Attending Provider: Yury aMrroquin Primary Care Provider: Lora Glasgow ED Provider: Alma Quevedo Discharge Instructions Activity:: Activity as Tolerated Equipment/Supplies:: No Equipment Needed Diet:: Heart healthy diet Discharge Orders Discharge Orders: Discharge Order (Routine); Ordered 05/31/23 Ordered By: Yury Marroquin Discharge Data Discharge Date/Time-TO BE ENTERED AT DEPARTURE: 05/31/23 11:06 Medical Decision Making 0555. Dr. Hendrickson from [facility] called. Patient has evidence of a large old ante rior MCA infarct on the right-hand side and now shows evidence of a posterior MCA on the right-hand side. [facility] has no capacity. 0620. Dr. Hendrickson from [facility] called. CTA was a poor quality due to timing of the dye administered; however he can still see an occlusion of the distal M2 branch. The pt. scores about a 6-7 on the NIHSS. 0645. Still waiting for a call back from [facility] stroke neuro. 0715. Case d/w Dr. Hutton from stroke neuro at [facility]. The occlusion is too distal for LVO clot retrieval. He suggests admit here. 0840. Case discussed with Dr. Weathers who accepts the patient to the intensive care unit. Of note, both the family and the patient have been updated on results and plan. Medical Records Medical records reviewed: Yes I reviewed the patient's medical records. Imaging Data Radiologic Study: Radiologist's impression: CT brain/CTA brain: Posterior MCA CVA new, old anterior MCA infarct. CTA shows distal M2 occlusion. Lab Data Lab results reviewed: Yes I reviewed the patient's lab results. Lab results narrative: PT 14.8, INR 1.5, glucose 199, AST 39, alk phos 133, mag 1.5, and remainder of labs unremarkable ECG Data Attestation: I personally reviewed and interpreted this ECG (s) as follows: ( NSR 65, 1rst degree AVB, otherwise no abnl. except some low voltage) Prior ECG tracings: available for review (no change) HPI General Date/Time Provider Initiated Documentation: 05/31/23 04:53 . HPI Narrative: This 67-year-old male patient presents with possible stroke like symptoms that began about 2:00 yesterday afternoon. The patient states that he first noticed that something was wrong because his left knee gave out and he fell twice. He states that both times he hit his head. His also states that he had a seizure yesterday. He does have a history of these and takes Keppra. The patient states that when his left leg seemed to not be working properly yesterday he also noticed that his left arm was not working. He was trying to grasp things yet could not. He says that his hand feels like it is and numb. He also complains of severe right eye pain. The patient's says that he has been slow to answer and just staring blankly at times. The patient denies being on any anticoagulation medicine at this time. He does report that he has had a runny nose, congestion, and cough for several weeks. Denies fever, stiff neck, or rash. There is no chest pain or difficulty breathing. There is no change in his speech, vision, or hearing. Related Data Home Medications Medication Instructions Recorded Confirmed metoprolol succinate 200 mg 200 mg PO DAILY 03/20/13 05/31/23 tablet,extended release 24 hr (Toprol XL) atorvastatin 40 mg tablet 40 mg PO DAILY 02/25/18 05/31/23 metformin 500 mg tablet,extended 1,000 mg PO DAILY 02/25/18 05/31/23 release 24hr betamethasone dipropionate 0.05 % 1 applic topical BID PRN 07/30/18 05/31/23 topical cream cholecalciferol (vitamin D3) 50 2,000 unit PO DAILY 07/30/18 05/31/23 mcg (2,000 unit) capsule morphine 15 mg tablet,extended 15 mg PO DAILY 07/30/18 05/31/23 release folic acid 1 mg tablet 1 mg PO DAILY 04/17/19 05/31/23 aspirin 81 mg tablet,delayed 81 mg PO DAILY 05/01/19 05/31/23 release (Adult Low Dose Aspirin) hydroxyzine HCl 50 mg tablet 100 mg PO HS 07/20/20 05/31/23 losartan 50 mg tablet 50 mg PO DAILY 07/20/20 05/31/23 magnesium oxide 400 mg PO BID 08/09/20 05/31/23 cyclobenzaprine 10 mg tablet 10 mg PO TID PRN prn 01/24/22 05/31/23 levetiracetam 750 mg tablet 1,500 mg (2 x 750 mg) PO Q12H #360 01/28/23 05/31/23 tabs apixaban 5 mg tablet (Eliquis) 5 mg PO BID #60 tabs 05/31/23 clopidogrel 75 mg tablet 75 mg PO DAILY #30 tabs 05/31/23 cyanocobalamin (vitamin B-12) 1,000 mcg PO DAILY 05/31/23 05/31/23 1,000 mcg tablet fluoxetine 40 mg capsule 40 mg PO DAILY 05/31/23 05/31/23 hydrocodone 10 mg-acetaminophen 2 tab PO Q6H PRN 05/31/23 05/31/23 325 mg tablet pantoprazole 40 mg tablet,delayed 40 mg PO DAILY 05/31/23 05/31/23 release polyethylene glycol 3350 17 gram 17 g PO DAILY PRN PRN Constipation 05/31/23 oral powder packet #0 ea pregabalin 50 mg capsule 100 mg (2 x 50 mg) PO HS #0 caps 05/31/23 pregabalin 50 mg capsule See Rx Instructions PO .COMPLEX 05/31/23 05/31/23 ropinirole 1 mg tablet 1 mg PO ONCE PRN 05/31/23 05/31/23 Previous Rx's Medication Instructions Recorded levetiracetam 750 mg tablet 1,500 mg (2 x 750 mg) PO Q12H #360 01/28/23 tabs apixaban 5 mg tablet (Eliquis) 5 mg PO BID #60 tabs 05/31/23 clopidogrel 75 mg tablet 75 mg PO DAILY #30 tabs 05/31/23 polyethylene glycol 3350 17 gram 17 g PO DAILY PRN PRN Constipation 05/31/23 oral powder packet #0 ea pregabalin 50 mg capsule 100 mg (2 x 50 mg) PO HS #0 caps 05/31/23 Allergies Allergy/AdvReac Type Severity Reaction Status Date / Time hydrochlorothiazide Allergy Mild Other (See Unverified 05/31/23 06:09 Comment) lisinopril Allergy Mild Other (See Unverified 05/31/23 06:09 Comment) Penicillins Allergy Unknown as child Unverified 05/31/23 06:09 unsure of reaction General Stated Complaint: CVA/TIA RAMILA: 2 Review of Systems Constitutional Constitutional: Denies chills, Denies fever(s), Reports headache(s) ( ) and Reports weakness (L side) Eyes Eyes: Denies diplopia and Reports other (no redness; has R eye pain) ENT Ears, Nose, Mouth, and Throat: Denies otalgia, Reports headache(s) ( ), Denies nasal congestion, Denies nasal discharge, Denies neck pain and Denies sore throat Cardiovascular Cardiovascular: Denies chest pain, Denies palpitations and Denies dyspnea Respiratory Respiratory: Denies cough and Denies dyspnea Gastrointestinal Gastrointestinal: Denies abdominal pain, Denies diarrhea, Denies nausea and Denies vomiting Genitourinary Genitourinary: Denies difficulty urinating and Denies dysuria Musculoskeletal Musculoskeletal: Denies myalgias, Denies muscle weakness, Denies neck pain, Reports numbness (L hand) and Reports other (edema) Integumentary/Breasts Skin/Breast: Denies change in pigmentation and Denies rash Neurologic Neurologic: Reports headache(s) ( ), Reports numbness (L hand) and Reports weakness (L side) Endocrine Endocrine: Denies palpitations PFSH All Active Problems Peripheral neuropathy (Acute) Osteoarthritis of left knee (Acute) Osteoarthritis of right knee (Acute) Rodgers's esophagus (Acute ~08/2020) Tubulovillous adenoma (Acute ~08/2020) Gastritis (Acute) Post laminectomy syndrome (Acute) Right lumbar radiculitis (Acute) Back pain (Acute) Tubular adenoma of colon (Acute 09/30/17) History of CVA (cerebrovascular accident) (Acute) Seizure (Acute) Last seizure 2019 Hypomagnesemia (Acute) Focal (motor) epilepsy (Acute) Barretts esophagus (Chronic) HTN (hypertension) (Chronic) Diabetes mellitus (Chronic) Medical History Leg edema, right History of paresthesia Vitamin B12 deficiency Hypocalcemia DISH (diffuse idiopathic skeletal hyperostosis) Hip pain, right Hx of adenomatous colonic polyps Morbid obesity Tobacco use Depression Vitamin B1 deficiency Fatty infiltration of liver Insomnia Hx of deep venous thrombosis Hx of gastric ulcer EVIE (obstructive sleep apnea) PSG 2014; severe EVIE with nocturnal hypoxemia; intolerant of CPAP Elevated TSH Hyperlipidemia CAD (coronary artery disease) COPD (chronic obstructive pulmonary disease) Lumbar back pain Low testosterone Neck pain Surgical History History of colonoscopy (~09/09/20) Post-laminectomy syndrome H/O vasectomy S/P repair of hydrocele EGD - MAC (09/30/17) Colonoscopy - MAC (09/30/17) Family History Mother Cancer Granddaughter Epilepsy Social History Smoking/Tobacco Use Status: Current every day Counseling given: counseling >10 minutes Smoking risk assessment performed?: Yes Alcohol Intake: current Alcohol Intake frequency: 0-2 drinks per day Drug use: Rarely Substance use type: marijuana Household members: spouse Housing: apartment Number of Children: 3 current occupation: Disabled. Formerly in construction What type of physical activity do you participate in: none Do you feel safe at home: Yes Do you feel safe in your relationship?: Yes Exam Const General: no acute distress, well developed, well groomed and not in acute distress Nutritional Appearance: well nourished Orientation: alert and oriented x3 [facility] Head: normocephalic and atraumatic Ears: external ears normal Mouth: oropharynx normal and moist mucous membranes Throat: posterior oropharynx normal Eyes Conjunctivae: conjunctivae normal Neck Neck: full ROM and supple Chest Chest: normal inspection of the chest Resp Effort & Inspection: normal respiratory effort Auscultation: clear to auscultation bilaterally Cardio Rate: regular rate Rhythm: regular rhythm Heart Sounds: no murmurs and no rubs GI Inspection: normal to inspection Palpation: soft, nontender and other (non distended) Auscultation: normal bowel sounds Skin General skin exam: no rashes or lesions noted and other (pink, warm, dry) Neuro General: patient awake, patient oriented x3 and other (Intermittently seems to zone out) Cranial Nerves: CN's II-XI intact bilaterally Cognition: normal cognition Speech: speech normal Gait: other (not tested) Motor: strength 5/5 throughout, pronator drift ( Left arm drifts upward), movement abnormality noted ( Patient periodically holds L arm up in bizarre f ashion, contracts hand) and other ([place]) Sensory Exam: no sensory deficits noted Coordination: [id number] test normal Other: PERRL, EOM-I, no APD Extrem General: normal to inspection, full ROM and pedal edema present Psych Mental Status: mental status grossly normal Speech and Movement: speech and movement normal Affect: normal affect Course Vital Signs Vital signs: Vital Signs Temperature 36.5 C 05/31/23 04:49 Pulse 74 05/31/23 04:49 Respiratory Rate 10 L 05/31/23 04:49 Blood Pressure 206/113 H 05/31/23 04:49 Pulse Oximetry 95 05/31/23 04:49 Temperature 36.5 C 05/31/23 04:49 Temperature Source Oral 05/31/23 04:49 Pulse 74 05/31/23 04:49 Respiratory Rate 15 05/31/23 05:21 Respiratory Effort Normal 05/31/23 05:21 Respiratory Depth Normal 05/31/23 05:21 Respiratory Pattern Normal 05/31/23 05:21 Blood Pressure 206/113 H 05/31/23 04:49 Blood Pressure Position Supine 05/31/23 04:49 Pulse Oximetry 95 05/31/23 04:49 Oxygen Delivery Method Room Air 05/31/23 04:49 Oxygen Flow Rate 0 05/31/23 04:49 Pain Level 8 05/31/23 04:49 Lab/Test Results Lab/Test Results: Laboratory Tests Range/Units 05/31/23 05/31/23 05:00 05:21 WBC (4.4-10.8) 10^3/uL 8.48 RBC (4.36-5.78) 10^6/uL 5.42 Hgb (13.5-17.5) g/dL 16.1 Hct (40.0-50.0) % 47.8 MCV (80-95) fL 88 MCH (27.0-33.0) pg 29.7 MCHC (32.0-36.0) % 33.7 RDW (11.8-14.1) % 13.7 Plt Count (130-400) 10^3/uL 192 MPV (8.0-11.0) fL 10.7 Immature Gran % 0.2 Neutrophils % 62.2 Lymphocytes % 26.7 Monocytes % 9.0 Eosinophils % 1.1 Basophils % 0.8 Nucleated RBC % (0.0-0.3) % 0.0 Absolute Neutrophils (1.2-6.7) 10^3/uL 5.28 Absolute Lymphocytes (1.2-3.4) 10^3/uL 2.26 Absolute Monocytes (0.1-0.8) 10^3/uL 0.76 Absolute Eosinophils (0.0-0.7) 10^3/uL 0.09 Absolute Basophils (0.0-0.2) 10^3/uL 0.07 Sodium Cancelled Potassium Cancelled Chloride Cancelled Carbon Dioxide Cancelled Anion Gap Cancelled BUN Cancelled Creatinine Cancelled Est GFR (CKD-EPI 2020) Cancelled Glucose Cancelled Calcium Cancelled Total Bilirubin Cancelled AST Cancelled ALT Cancelled Alkaline Phosphatase Cancelled Troponin I Cancelled Total Protein Cancelled Albumin Cancelled Critical Care Time Critical Care Time Critical Care Time: Yes Total Critical Care Time: 75 Attestation: Reviewing old chart and test results, speaking with consultants including radiology, stroke neurology, hospitalist, and nursing, updating patient and his family.
[2023-05-31 05:31] LABS: Magnesium 1.5 mg/dL (1.8-2.4); Troponin I < 50 ng/L (<or=60)
[2023-05-31] MEDS: Normal Saline 1,000 ML 1000 ML IV (05:32)
[2023-05-31 05:36] LABS: PTT Activated 27.5 sec (23.6-32.8)
--- NOTE | 2023-05-31 05:45 | DI.CT_ITS ---
Exam(s) CT BRAIN CTA EXAM: CT BRAIN CTA CLINICAL HISTORY: L sided weakness, has MCA posterior distribution. TECHNIQUE: Imaging Protocol: Axial CT angiography was performed with multi-slice acquisition and mu lti-planar and/or 3D reconstructions. CONTRAST MATERIAL: Intravenous: Omnipaque 350 Contrast volume:structured data in ml COMPARISON: CT CT HEAD - STROKE PROTOCOL from 05/31/2023 FINDINGS: Brain: Old right frontal infarct. Acute,/subacute infarct right parietal lobe. No abnormal area of enhancement. No midline shift. Internal Carotid Arteries: Petrous: Normal. Cavernous: Normal. Cerebral: Normal. Middle Cerebral Arteries: Right: Occlusion of posterior M2 branch supplies the region of acute/subacute infarct.. Other more anterior M2 branches are diminutive, supplying the area of old infarct.. Left: No aneurysm, occlusion or significant stenosis. Anterior Cerebral Arteries: Right: No aneurysm, occlusion or significant stenosis. Left: No aneurysm, occlusion or significant stenosis. Posterial Cerebral Arteries: Right: No aneurysm, occlusion or significant stenosis. Left: No aneurysm, occlusion or significant stenosis. Vertebral Arteries: Right: No aneurysm, occlusion or significant stenosis. Left: No aneurysm, occlusion or significant stenosis. Basilar Artery: No aneurysm, occlusion or significant stenosis. IMPRESSION: Acute/subacute infarct in the posterior right MCA distribution with occlusion of posterior M2 branch and distal branches. RADIATION DOSE DELIVERED: Total DLP DATA REPOSITORY: All CT scans at this facility are submitted to the National Radiology Data Registry (NRDR) Dose Index Registry (DIR) with the [employer] (A[employer]). RADIATION OPTIMIZATION: All CT scans at this facility use at least one of these dose optimization te chniques: automated exposure control; mA and/or kV adjustment per patient size (includes targeted exa ms where dose is matched to clinical indication); or iterative reconstruction.
--- NOTE | 2023-05-31 05:55 | DI.VRAD_ITS ---
PROCEDURE INFORMATION: Exam: CT Head Without Contrast Exam date and time: 05/31/2023 5:41 AM Age: 67 years old Clinical indication: Stroke-like symptoms; Lt upper extremity weakness TECHNIQUE: Imaging protocol: Computed tomography of the head without contrast. Radiation optimization: All CT scans at this facility use at least one of these dose optimization techniques: automated exposure control; mA and/or kV adjustment per patient size (includes targeted exams where dose is matched to clinical indication); or iterative reconstruction. Other technique: STROKE PROTOCOL was implemented. COMPARISON: MR HEAD^ROUTINE WO 04/23/2019 1:39 PM FINDINGS: Brain: There is a sizable area cytotoxic edema in the posterior right MCA territory, compatible with acute/subacute stroke (ischema/infarction). There is a sizable area of encephalomalacia/gliosis related to old infarction in the anterior right MCA territory. No intracranial hemorrhage. Cerebral ventricles: No ventriculomegaly. Paranasal sinuses: Visualized sinuses are unremarkable. No fluid levels. Mastoid air cells: Unremarkable. Bones/joints: Unremarkable. No acute fracture. Soft tissues: Unremarkable. IMPRESSION: 1. There is a sizable area cytotoxic edema in the posterior right MCA territory, compatible with acute/subacute stroke (ischema/infarction). 2. There is a sizable area of encephalomalacia/gliosis related to old infarction in the anterior right MCA territory. Findings discussed with Alma Quevedo MD at time of interpretation. Dictated and Authenticated by: Madhu Hendrickson MD. Ordering:ELENO Marquez MD
[2023-05-31 06:23] LABS: COVID-19 PCR Negative (Negative); Influenza A PCR Negative (Negative); Influenza B PCR Negative (Negative); RSV PCR Negative (Negative)
[2023-05-31] MEDS: niCARdipine 25 MG in Normal Saline 240 ML 50 MG IV (06:24)
[2023-05-31] MEDS: Omnipaque 350 MG/ML 100 ML BTL IJ (06:30)
--- NOTE | 2023-05-31 06:34 | DI.VRAD_ITS ---
Addendum created by Madhu Hendrickson MD on 05/31/2023 6:43:09 AM EDT: Findings discussed with Alma Quevedo MD at time of interpretation. Initial report created on 05/31/2023 6:33:45 AM EDT: PROCEDURE INFORMATION: Exam: CTA Head With Contrast, Arteriography Exam date and time: 05/31/2023 6:05 AM Age: 67 years old Clinical indication: Stroke-like symptoms; Lt upper extremity and lt lower extremity and other: Dizziness; HERNANDEZ weakness TECHNIQUE: Imaging protocol: Computed tomographic angiography of the head with contrast. Exam focused on the arteries. 3D rendering (Not supervised by radiologist): MIP and/or 3D reconstructed images were created by the technologist. Radiation optimization: All CT scans at this facility use at least one of these dose optimization techniques: automated exposure control; mA and/or kV adjustment per patient size (includes targeted exams where dose is matched to clinical indication); or iterative reconstruction. Contrast material: OMNIPAQUE 350; Contrast volume: 85 ml; Contrast route: INTRAVENOUS (IV); COMPARISON: CT HEAD - STROKE PROTOCOL 05/31/2023 5:41 AM FINDINGS: ANTERIOR CIRCULATION: Right internal carotid artery: Intracranial segment is patent with no significant stenosis. No aneurysm. Right middle cerebral artery: There is focal embolic occlusion or near occlusion of posterior most M2 branch of the right middle cerebral artery (images 153-165 of axial series 10). The other M2 branches of the right middle cerebral artery which course into the area of old infarction are relatively diminutive and difficult to evaluate given the limitations of the study. Right anterior cerebral artery: No occlusion or significant stenosis. No aneurysm. Left internal carotid artery: Intracranial segment is patent with no significant stenosis. No aneurysm. Left middle cerebral artery: No occlusion or significant stenosis. No aneurysm. Left anterior cerebral artery: No occlusion or significant stenosis. No aneurysm. POSTERIOR CIRCULATION: Right vertebral artery: No occlusion or significant stenosis. No aneurysm. Left vertebral artery: No occlusion or significant stenosis. No aneurysm. Basilar artery: No occlusion or significant stenosis. No aneurysm. Right posterior cerebral artery: No occlusion or significant stenosis. No aneurysm. Left posterior cerebral artery: No occlusion or significant stenosis. No aneurysm. Brain: No definite mass, mass effect, or midline shift. Cerebral ventricles: No ventriculomegaly. Bones/joints: Unremarkable. No acute fracture. Soft tissues: Unremarkable. Other findings: Study limited by artifact and timing. IMPRESSION: 1. Study limited by artifact and timing. 2. There is focal embolic occlusion or near occlusion of posterior most M2 branch of the right middle cerebral artery (images 153-165 of axial series 10). Dictated and Authenticated by: Madhu Hendrickson MD. Ordering:ELENO Marquez MD
[2023-05-31] MEDS: MAGNESIUM SULFATE 1 GM/100 ML BAG IVPB (06:40)
[2023-05-31] MEDS: Aspirin 81 MG CHEW 324 MG PO (06:41)
[2023-05-31 07:01] LABS: Source Nasopharynx
[2023-05-31 08:23] LABS: Lab Add On Test COMPLETED
[2023-05-31 08:41] LABS: Hemoglobin A1C 6.5 % (<5.7)
[2023-05-31] MEDS: HYDROmorphone 2 MG/ML SYR 1 MG IVP (09:33)
[2023-05-31] MEDS: Clopidogrel 300 MG TAB PO (11:15)
[2023-05-31] MEDS: Nicotine 21 MG/24 HR PATCH TD (11:17)
[2023-05-31] MEDS: Normal Saline Flush 10 ML SYR IVP ×2 (11:20→13:21)
--- NOTE | 2023-05-31 11:45 | RT.EKG_ITS ---
APPROVED REPORT Exam: Resting ECG Reason for Exam: afib Patient Location: I HR:111 bpm ECG Measurements Heart Rate 111 AXIS [place] [id number] P [id number] QRSd 82 QRS 58 QT 351 T -63 QTc 477 Conclusion Atrial flutter...A-rate 263 Borderline low voltage, extremity leads...all extremity leads <0.6mV Minimal ST depression, anterolateral leads...ST <-0.04mV, I aVL V2-V6 Borderline prolonged QT interval...QTc >475mS
[2023-05-31] MEDS: Ketorolac 30 MG/ML VIAL IVP (12:11)
[2023-05-31] MEDS: LORazepam 2 MG/ML VIAL 1 MG IVP (13:20)
[2023-05-31] MEDS: Normal Saline 500 ML IV (14:47)
[2023-05-31] MEDS: MAGNESIUM SULFATE 4 GM/100 ML BAG IVPB (14:48)
[2023-05-31] MEDS: HYDROcodone 10/Acetaminophen 325 TAB PO (17:08)
[2023-05-31] MEDS: LORazepam 0.5 MG TAB PO (17:11)
--- NOTE | 2023-05-31 17:46 | DSE_ITS ---
Date of service: 05/31/23 Time of Service: 17:47 Discharge Plan Disposition Patient Disposition: Home Condition: Improving Discharge Details Reason For Visit: CVA Admit Date/Time: 05/31/23 11:02 Admit Provider: Yury Marroquin Attending Provider: Yury Marroquin [facility]: PCP f/u in 1-2 weeks Home Meds and New Rx's Prescriptions: New polyethylene glycol 3350 17 gram Powder In Packet 17 g PO DAILY PRN PRN (Reason: Constipation) Qty: 0 0RF Eliquis 5 mg Tablet 5 mg PO BID Qty: 60 0RF Continued betamethasone dipropionate 0.05 % cream 1 applic TP BID PRN Patient Comments: Apply as directed morphine 15 mg tablet extended release 15 mg PO DAILY aspirin [Adult Low Dose Aspirin] 81 mg tablet,delayed release (DR/EC) 81 mg PO DAILY levetiracetam 750 mg tablet 1,500 mg PO Q12H Qty: 360 3RF metoprolol succinate [Toprol XL] 200 MG tablet extended release 24 hr 200 mg PO DAILY atorvastatin 40 MG tablet 40 mg PO DAILY metformin 500 MG tablet extended release 24hr 1,000 mg PO DAILY Patient Comments: 02/25/18 takes only 1 tab when he feels like it --sgl folic acid 1 mg Tablet 1 mg PO DAILY losartan 50 mg tablet 50 mg PO DAILY hydroxyzine HCl 50 mg tablet 100 mg PO HS Patient Comments: TAKE ONE TABLET BY MOUTH AT BEDTIME ropinirole 1 mg tablet 1 mg PO ONCE PRN Patient Comments: TAKE ONE TO FOUR TABLETS BY MOUTH ONCE DAILY FOR RESTLESS LEGS; MAY TITRATE UP TO 4MG DAILY cyanocobalamin (vitamin B-12) 1,000 mcg tablet 1,000 mcg PO DAILY Patient Comments: TAKE ONE TABLET BY MOUTH EVERY DAY pantoprazole 40 mg tablet,delayed release (DR/EC) 40 mg PO DAILY Patient Comments: TAKE ONE TABLET BY MOUTH EVERY DAY hydrocodone-acetaminophen 10-325 mg tablet 2 tab PO Q6H PRN Patient Comments: TAKE TWO TABLETS BY MOUTH EVERY 6 HOURS NEEDED +MAX 7 TABLETS PER DAY+ pregabalin 50 mg capsule See Rx Instructions PO .COMPLEX Rx Instructions: TAKE 1 CAPSULE IN THE MORNING AND 2 CAPSULES AT BEDTIME Discontinued cyanocobalamin (vitamin B-12) 2,000 mcg tablet 2,000 mcg PO DAILY sucralfate 1 gram tablet 1 g PO BID Discharge Instructions Instructions: Heart Healthy Diet (DC) Referrals: Orly Fernandez MD [ [facility] STAFF PHYSICIAN] - (CVA) Activity:: Activity as Tolerated Equipment/Supplies:: No Equipment Needed Diet:: Heart healthy diet Discharge Orders Discharge Orders: Discharge Order (Routine); Ordered 05/31/23 Ordered By: Yury Marroquin Discharge Data Discharge Date/Time-TO BE ENTERED AT DEPARTURE: 05/31/23 19:00 DS: Summary Time Spent with Patient providing and/or coordinating discharge services: Greater than 30 minutes Status at Discharge Functional status at discharge: independent ambulation Overall status at discharge: patient is progressing back to baseline Mental Status: mental status grossly normal Speech and Movement: speech and movement normal Mood: congruent mood Affect: blunted Exam Narrative Exam Narrative: Sitting in recliner. Appers reluctant to interact but is generally cooperative. Const General: no acute distress, well developed and well groomed Orientation: alert and oriented x3 HENMT Head: normocephalic and atraumatic Ears: hearing grossly normal bilaterally Mouth: moist mucous membranes Eyes Conjunctivae: conjunctivae normal Sclera: sclerae normal EOM: No nystagmus Neck Neck: full ROM and supple Chest Chest: normal inspection of the chest Resp Effort & Inspection: normal respiratory effort Auscultation: clear to auscultation bilaterally Cardio Rate: regular rate Rhythm: abnormal rhythm irregularly irregular Heart Sounds: no murmurs and no rubs GI Inspection: normal to inspection and non-distended Palpation: soft and nontender Auscultation: normal bowel sounds Skin General skin exam: no rashes or lesions noted and other (pink, warm, dry) Neuro General: patient awake and patient oriented x3 Cranial Nerves: CN's II-XI intact bilaterally and no nystagmus Cognition: normal cognition Speech: speech normal Gait: other (not tested) Motor: strength 5/5 throughout and pronator drift ( Left arm drifts upward) Sensory Exam: no sensory deficits noted Coordination: [id number] test normal Other: PERRL, EOM-I, no APD Extrem General: normal to inspection and pedal edema present Psych Mental Status: mental status grossly normal Speech and Movement: speech and movement normal Mood: congruent mood Affect: blunted DS: Data Vitals/I&O Vitals and I&O: Vital Signs Temperature 36.3 C L 05/31/23 10:45 Temperature Source Temporal Artery Scan 05/31/23 10:45 Pulse 77 05/31/23 14:01 Pulse 70 05/31/23 13:46 Respiratory Rate 20 05/31/23 13:46 Respiratory Effort Normal, Non-Labored 05/31/23 10:45 Respiratory Depth Normal 05/31/23 10:45 Respiratory Pattern Normal 05/31/23 10:45 Blood Pressure 137/84 05/31/23 14:01 Blood Pressure Mean 100 05/31/23 14:01 Blood Pressure Position Supine 05/31/23 10:45 Pulse Oximetry 96 05/31/23 13:46 Oxygen Delivery Method Room Air 05/31/23 10:45 Oxygen Flow Rate 0 05/31/23 10:45 Pain Level 10 05/31/23 17:08 Intake & Output 05/30/23 05/31/23 05/31/23 23:59 11:59 23:59 Intake Total 573.334 / 1416.667 843.333 / 1416.667 Output Total 425 / 1150 725 / 1150 Balance 148.334 / 266.667 118.333 / 266.667 Weight 117.934 kg Intake: IV 573.334 / 1416.667 843.333 / 1416.667 Output: Urine 425 / 1150 725 / 1150 Other: Urine Color Yellow Yellow Urine Appearance Clear Clear Urine Odor Normal Voiding Methods Urinal Urinal Data Completed and Pending Labs on day of discharge: Labs from last 24 hours 05/31/23 05/31/23 05/31/23 08:22 05:45 05:21 WBC RBC Hgb Hct MCV MCH MCHC RDW Plt Count MPV Immature Gran % Neutrophils % Lymphocytes % Monocytes % Eosinophils % Basophils % Nucleated RBC % Absolute Neutrophils Absolute Lymphocytes Absolute Monocytes Absolute Eosinophils Absolute Basophils PT INR APTT Sodium Cancelled Potassium Cancelled Chloride Cancelled Carbon Dioxide Cancelled Anion Gap Cancelled BUN Cancelled Creatinine Cancelled Est GFR (CKD-EPI 2020) Cancelled Glucose Cancelled Hemoglobin A1c Calcium Cancelled Magnesium Total Bilirubin Cancelled AST Cancelled ALT Cancelled Alkaline Phosphatase Cancelled Troponin I Cancelled Total Protein Cancelled Albumin Cancelled Levetiracetam COVID-19 Source Nasopharynx SARS-CoV-2 (PCR) Negative Influenza Type A (PCR) Negative Influenza Type B (PCR) Negative RSV (PCR) Negative Add-On Test Request COMPLETED 05/31/23 05/31/23 05:00 04:57 WBC 8.48 RBC 5.42 Hgb 16.1 Hct 47.8 MCV 88 MCH 29.7 MCHC 33.7 RDW 13.7 Plt Count 192 MPV 10.7 Immature Gran % 0.2 Neutrophils % 62.2 Lymphocytes % 26.7 Monocytes % 9.0 Eosinophils % 1.1 Basophils % 0.8 Nucleated RBC % 0.0 Absolute Neutrophils 5.28 Absolute Lymphocytes 2.26 Absolute Monocytes 0.76 Absolute Eosinophils 0.09 Absolute Basophils 0.07 PT 14.8 H INR 1.5 H APTT 27.5 Sodium 138 Potassium 3.8 Chloride 100 Carbon Dioxide 32.1 H Anion Gap 5.9 BUN 7 Creatinine 1.0 Est GFR (CKD-EPI 2020) 83.52 Glucose 199 H Hemoglobin A1c 6.5 H Calcium 9.4 Magnesium 1.5 L Total Bilirubin 0.9 AST 39 H ALT 29 Alkaline Phosphatase 133 H Troponin I < 50 Total Protein 8.3 H Albumin 3.9 Levetiracetam Pending COVID-19 Source SARS-CoV-2 (PCR) Influenza Type A (PCR) Influenza Type B (PCR) RSV (PCR) Add-On Test Request PFS All Active Problems (Updated 06/06/23 @ 16:29 by Orly Fernandez MD) Encephalopathy (Acute) Acute stroke due to occlusion of right middle cerebral artery (Acute) Peripheral neuropathy (Acute) Osteoarthritis of left knee (Acute) Osteoarthritis of right knee (Acute) Rodgers's esophagus (Acute ~08/2020) Tubulovillous adenoma (Acute ~08/2020) Gastritis (Acute) Post laminectomy syndrome (Acute) Right lumbar radiculitis (Acute) Back pain (Acute) Tubular adenoma of colon (Acute 09/30/17) History of CVA (cerebrovascular accident) (Acute) Seizure (Acute) Last seizure 2019 Hypomagnesemia (Acute) Focal (motor) epilepsy (Acute) Barretts esophagus (Chronic) HTN (hypertension) (Chronic) Diabetes mellitus (Chronic) Medical History Leg edema, right History of paresthesia Vitamin B12 deficiency Hypocalcemia DISH (diffuse idiopathic skeletal hyperostosis) Hip pain, right Hx of adenomatous colonic polyps Morbid obesity Tobacco use Depression Vitamin B1 deficiency Fatty infiltration of liver Insomnia Hx of deep venous thrombosis Hx of gastric ulcer EVIE (obstructive sleep apnea) PSG 2014; severe EVIE with nocturnal hypoxemia; intolerant of CPAP Elevated TSH Hyperlipidemia CAD (coronary artery disease) COPD (chronic obstructive pulmonary disease) Lumbar back pain Low testosterone Neck pain Surgical History History of colonoscopy (~09/09/20) Post-laminectomy syndrome H/O vasectomy S/P repair of hydrocele EGD - MAC (09/30/17) Colonoscopy - MAC (09/30/17) Family History Mother Cancer Granddaughter Epilepsy Social History Smoking/Tobacco Use Status: Current every day Counseling given: counseling >10 minutes Smoking risk assessment performed?: Yes Alcohol Intake: current Alcohol Intake frequency: 0-2 drinks per day Drug use: Rarely Substance use type: marijuana Household members: spouse Housing: apartment Number of Children: 3 current occupation: Disabled. Formerly in construction What type of physical activity do you participate in: none Do you feel safe at home: Yes Do you feel safe in your relationship?: Yes Time Spent with Patient Time Spent with Patient: 45-69 minutes Time was spent: preparing to see the patient(eg.review tests), obtaining and/or reviewing separately otained hiistory, referring, communicating with other health customer care consultant, indepentently interpreting results and counseling the patient
--- NOTE | 2023-05-31 17:47 | W.PM.HP.N ---
Date of service: 05/31/23 Time of Service: 14:25 History of Present Illness History of Present Illness Chief Complaint: left leg weakness. Narrative: This 67-year-old male with a PMH of Focal epilepsy, CVA, HTN, DM2 who presented to the ED with possible stroke like symptoms that began about 2:00 yesterday afternoon. The patient stated that he first noticed that something was wrong because his left knee gave out and he fell twice. He states that both times he hit his head. His also states that he had a seizure yesterday. He does have a history of these and takes Keppra. The patient states that when his left leg seemed to not be working properly yesterday he also noticed that his left arm was not working. He was trying to grasp things yet could not. He says that his hand feels like it is and numb. He also complains of severe right eye pain. The patient's says that he has been slow to answer and just staring blankly at times. The patient denies being on any anticoagulation medicine at this time. He does report that he has had a runny nose, congestion, and cough for several weeks. Denies fever, stiff neck, or rash. There is no chest pain or difficulty breathing. There is no change in his speech, vision, or hearing. Hgb, WBC cont normal. Lytes normal CT brain: Acute/subacute infarct right parietal lobe, MCA distribution. Old right frontal lobe infarct, MCA distribution. No hemorrhage. Pt subsequently discharged from Emergency room before hospitalists evaluation PFSH All Active Problems (Updated 06/06/23 @ 16:29 by Orly Fernandez MD) Encephalopathy (Acute) Acute stroke due to occlusion of right middle cerebral artery (Acute) Peripheral neuropathy (Acute) Osteoarthritis of left knee (Acute) Osteoarthritis of right knee (Acute) Rodgers's esophagus (Acute ~08/2020) Tubulovillous adenoma (Acute ~08/2020) Gastritis (Acute) Post laminectomy syndrome (Acute) Right lumbar radiculitis (Acute) Back pain (Acute) Tubular adenoma of colon (Acute 09/30/17) History of CVA (cerebrovascular accident) (Acute) Seizure (Acute) Last seizure 2020 Hypomagnesemia (Acute) Focal (motor) epilepsy (Acute) Barretts esophagus (Chronic) HTN (hypertension) (Chronic) Diabetes mellitus (Chronic) Medical History Leg edema, right History of paresthesia Vitamin B12 deficiency Hypocalcemia DISH (diffuse idiopathic skeletal hyperostosis) Hip pain, right Hx of adenomatous colonic polyps Morbid obesity Tobacco use Depression Vitamin B1 deficiency Fatty infiltration of liver Insomnia Hx of deep venous thrombosis Hx of gastric ulcer EVIE (obstructive sleep apnea) PSG 2014; severe EVIE with nocturnal hypoxemia; intolerant of CPAP Elevated TSH Hyperlipidemia CAD (coronary artery disease) COPD (chronic obstructive pulmonary disease) Lumbar back pain Low testosterone Neck pain Surgical History History of colonoscopy (~09/09/20) Post-laminectomy syndrome H/O vasectomy S/P repair of hydrocele EGD - MAC (09/30/17) Colonoscopy - MAC (09/30/17) Family History Mother Cancer Granddaughter Epilepsy Social History Smoking/Tobacco Use Status: Current every day Counseling given: counseling >10 minutes Smoking risk assessment performed?: Yes Alcohol Intake: current Alcohol Intake frequency: 0-2 drinks per day Drug use: Rarely Substance use type: marijuana Household members: spouse Housing: apartment Number of Children: 3 current occupation: Disabled. Formerly in construction What type of physical activity do you participate in: none Do you feel safe at home: Yes Do you feel safe in your relationship?: Yes Meds Allergies and Home Medications Allergies Allergy/AdvReac Type Severity Reaction Status Date / Time hydromorphone [From Dilaudid] Allergy Severe Nausea Verified 06/06/23 13:56 hydrochlorothiazide Allergy Mild Other (See Unverified 06/06/23 13:47 Comment) lisinopril Allergy Mild Other (See Unverified 06/06/23 13:47 Comment) Penicillins Allergy Unknown as child Unverified 06/06/23 13:47 unsure of reaction Home Medications Medication Instructions Recorded Confirmed Type metoprolol succinate 200 mg 200 mg PO DAILY 03/20/13 06/06/23 History tablet,extended release 24 hr (Toprol XL) atorvastatin 40 mg tablet 40 mg PO DAILY 02/25/18 06/06/23 History metformin 500 mg tablet,extended 1,000 mg PO DAILY 02/25/18 06/06/23 History release 24hr betamethasone dipropionate 0.05 % 1 applic topical BID PRN 07/30/18 06/06/23 History topical cream morphine 15 mg tablet,extended 15 mg PO DAILY 07/30/18 06/06/23 History release folic acid 1 mg tablet 1 mg PO DAILY 04/17/19 06/06/23 History aspirin 81 mg tablet,delayed 81 mg PO DAILY 05/01/19 06/06/23 History release (Adult Low Dose Aspirin) hydroxyzine HCl 50 mg tablet 100 mg PO HS 07/20/20 06/06/23 History losartan 50 mg tablet 50 mg PO DAILY 07/20/20 06/06/23 History levetiracetam 750 mg tablet 1,500 mg (2 x 750 mg) PO Q12H #360 01/28/23 06/06/23 Rx tabs apixaban 5 mg tablet (Eliquis) 5 mg PO BID #60 tabs 05/31/23 Rx cyanocobalamin (vitamin B-12) 1,000 mcg PO DAILY 05/31/23 06/06/23 History 1,000 mcg tablet hydrocodone 10 mg-acetaminophen 2 tab PO Q6H PRN 05/31/23 06/06/23 History 325 mg tablet pantoprazole 40 mg tablet,delayed 40 mg PO DAILY 05/31/23 06/06/23 History release polyethylene glycol 3350 17 gram 17 g PO DAILY PRN PRN Constipation 05/31/23 06/06/23 Rx oral powder packet #0 ea pregabalin 50 mg capsule See Rx Instructions PO .COMPLEX 05/31/23 06/06/23 History ropinirole 1 mg tablet 1 mg PO ONCE PRN 05/31/23 06/06/23 History Results Labs 05/31/23 05:00 05/31/23 05:00 Labs: Laboratory Results - last 24 hr 05/31/23 05/31/23 05/31/23 04:57 05:00 05:21 WBC 8.48 RBC 5.42 Hgb 16.1 Hct 47.8 MCV 88 MCH 29.7 MCHC 33.7 RDW 13.7 Plt Count 192 MPV 10.7 Immature Gran % 0.2 Neutrophils % 62.2 Lymphocytes % 26.7 Monocytes % 9.0 Eosinophils % 1.1 Basophils % 0.8 Nucleated RBC % 0.0 Absolute Neutrophils 5.28 Absolute Lymphocytes 2.26 Absolute Monocytes 0.76 Absolute Eosinophils 0.09 Absolute Basophils 0.07 PT 14.8 H INR 1.5 H APTT 27.5 Sodium 138 Cancelled Potassium 3.8 Cancelled Chloride 100 Cancelled Carbon Dioxide 32.1 H Cancelled Anion Gap 5.9 Cancelled BUN 7 Cancelled Creatinine 1.0 Cancelled Est GFR (CKD-EPI 2020) 83.52 Cancelled Glucose 199 H Cancelled Hemoglobin A1c 6.5 H Calcium 9.4 Cancelled Magnesium 1.5 L Total Bilirubin 0.9 Cancelled AST 39 H Cancelled ALT 29 Cancelled Alkaline Phosphatase 133 H Cancelled Troponin I < 50 Cancelled Total Protein 8.3 H Cancelled Albumin 3.9 Cancelled COVID-19 Source SARS-CoV-2 (PCR) Influenza Type A (PCR) Influenza Type B (PCR) RSV (PCR) Add-On Test Request 05/31/23 05/31/23 05:45 08:22 WBC RBC Hgb Hct MCV MCH MCHC RDW Plt Count MPV Immature Gran % Neutrophils % Lymphocytes % Monocytes % Eosinophils % Basophils % Nucleated RBC % Absolute Neutrophils Absolute Lymphocytes Absolute Monocytes Absolute Eosinophils Absolute Basophils PT INR APTT Sodium Potassium Chloride Carbon Dioxide Anion Gap BUN Creatinine Est GFR (CKD-EPI 2020) Glucose Hemoglobin A1c Calcium Magnesium Total Bilirubin AST ALT Alkaline Phosphatase Troponin I Total Protein Albumin COVID-19 Source Nasopharynx SARS-CoV-2 (PCR) Negative Influenza Type A (PCR) Negative Influenza Type B (PCR) Negative RSV (PCR) Negative Add-On Test Request COMPLETED Last Vital Signs Temp 36.3 C L 05/31/23 10:45 Pulse 77 05/31/23 14:01 Resp 20 05/31/23 13:46 BP 137/84 05/31/23 14:01 Pulse Ox 96 05/31/23 13:46 Time Spent Time spent with Patient: <40 minutes Time was spent: preparing to see the patient(eg.review tests)
--- NOTE | 2023-06-01 08:42 | PT.INNT ---
PT Notes Visit Reasons: Cerebrovascular accident Patient was not evaluated. Per Sonia Turner, PT patient chose not to stay through the weekend for further assessment, and refused use of walker. He was discharged yesterday per EMR records.
[2023-06-02 14:28] LABS: Levetiracetam 27.5 mcg/mL
== END 2023-05-31 19:00 | disposition home or self-care (01) | DRG 66 ==
LOC: ER 05:19 → ICU 11:06
PROVIDERS: Admitting Provider Family Medicine; Emergency Provider Emergency Medicine; PCP Family Medicine; Visit Provider Family Medicine
DX: I63.511 Cerebral infarction due to unspecified occlusion or stenosis of right middle cerebral artery (principal); E11.42 Type 2 diabetes mellitus with diabetic polyneuropathy; M17.0 Bilateral primary osteoarthritis of knee; K22.70 Barrett's esophagus without dysplasia; M96.1 Postlaminectomy syndrome, not elsewhere classified; I10 Essential (primary) hypertension; E83.42 Hypomagnesemia; Z86.73 Personal history of transient ischemic attack (TIA), and cerebral infarction without residual deficits; M54.9 Dorsalgia, unspecified; Z86.010 Personal history of colon polyps; M54.16 Radiculopathy, lumbar region; E53.8 Deficiency of other specified B group vitamins; M48.10 Ankylosing hyperostosis [Forestier], site unspecified; E66.01 Morbid (severe) obesity due to excess calories; F17.210 Nicotine dependence, cigarettes, uncomplicated; F32.A Depression, unspecified; K76.0 Fatty (change of) liver, not elsewhere classified; G47.00 Insomnia, unspecified; Z86.718 Personal history of other venous thrombosis and embolism; G47.33 Obstructive sleep apnea (adult) (pediatric); Z87.11 Personal history of peptic ulcer disease; E78.5 Hyperlipidemia, unspecified; I25.10 Atherosclerotic heart disease of native coronary artery without angina pectoris; J44.9 Chronic obstructive pulmonary disease, unspecified; M54.2 Cervicalgia; G40.909 Epilepsy, unspecified, not intractable, without status epilepticus; Z79.899 Other long term (current) drug therapy; R29.6 Repeated falls; Z68.36 Body mass index [BMI] 36.0-36.9, adult
CPT/HCPCS: 70496; 80053; 87637; 93005; 96365; 96366; 96367; 96376; 99291; 70450; 80177; 83036; 83735; 84484; 85025; 85610; 85730; 93010; 99235; 99236; J1170; J1885; J2060; J3475; J3490

== ENCOUNTER 2023-09-02 02:54 | Emergency (ER) | payer MEDICARE, SELFPAY ==
[2023-09-02] VITALS (18 sets, daily range): BP systolic 101–137; BP diastolic 56–118; PULSE 77–100; RESP 13–26; TEMP 36.4; O2SAT 93–96
--- NOTE | 2023-09-02 03:00 | DI.CT_ITS ---
Exam(s) CT CHEST/ABD/PEL WO CT THORACIC LUMBAR SPINE REC EXAM: CT CHEST/ABD/PEL WO CLINICAL HISTORY: fall, hit back, altered. TECHNIQUE: Imaging Protocol: Axial computed tomography images with coronal and sagittal reformatted images were created and reviewed Axial, coronal and sagittal images of the thoracic and lumbar spine were reconstructed utilizing bone algorithm. CONTRAST MATERIAL: Residual contrast from head and neck CTA present within renal collecting system a nd urinary bladder. No additional IV contrast was administered. Oral: / no COMPARISON: CT CT ABDOMEN PELVIS W from 10/05/[address] CHEST WO from 08/23/[address] THORACIC LUMBAR SPINE REC from 09/02/2023 FINDINGS: CHEST: Exam mildly limited by motion. Mild esophageal wall thickening, greater distally. Tracheobronchial tree: Patent where visualized. Pulmonary parenchyma: No consolidation or dominant measurable mass. Pleura: No effusion or pneumothorax. Lymph nodes: Within normal limits. Aorta: Thoracic portion non-dilated. Heart: Mildly enlarged. Coronary artery calcifications present. No pericardial effusion. Bones: Bridging osteophytes. Bones appear osteopenic..No compression fractures. No rib fractures id entified. Soft tissues: Unremarkable. ABDOMEN and PELVIS: Exam mildly limited by motion. Liver: Mildly enlarged. Mild hepatic steatosis. No measurable mass. Gallbladder and biliary tract: No evidence of stones or wall thickening. No biliary dilatation. Pancreas: Mildly atrophic. No abnormal calcifications or inflammatory process. Spleen: Normal. Kidneys: Normal size, contour and axis. No radiodense stones hip. No obstructive uropathy. No suspic ious masses seen. Adrenal glands: No masses seen. Aorta: Abdominal portion non-dilated. Lymph nodes: Within normal limits. Soft tissues: No soft tissue hematomas. Bladder: Unremarkable. Bowel: No obstruction or bowel wall thickening. Peritoneal cavity: No ascites. No focal collection. No mesenteric inflammatory response. Bones: Prominent osteophytes. Bones appear osteopenic. No evidence spine or pelvic fracture. Reproductive organs: Within normal limits. IMPRESSION: No acute abnormality in the chest, abdomen or pelvis.. RADIATION DOSE DELIVERED: 2,233.09mGy.cm Total DLP DATA REPOSITORY: All CT scans at this facility are submitted to the National Radiology Data Registry (NRDR) Dose Index Registry (DIR) with the [employer] (ACR). RADIATION OPTIMIZATION: All CT scans at this facility use at least one of these dose optimization te chniques: automated exposure control; mA and/or kV adjustment per patient size (includes targeted exa ms where dose is matched to clinical indication); or iterative reconstruction.
--- NOTE | 2023-09-02 03:00 | DI.CT_ITS ---
Exam(s) CT BRAIN NECK CTA EXAM: CT BRAIN NECK CTA CLINICAL HISTORY: fall, hit head, hx stroke on Elequis. TECHNIQUE: Imaging Protocol: Axial CT angiography was performed with multi-slice acquisition and mu lti-planar and MIP reconstructions. CONTRAST MATERIAL: Intravenous: Omnipaque 350 Contrast volume:100 ml COMPARISON: CT CT BRAIN CTA from 05/31/[address] HEAD - STROKE PROTOCOL from 05/31/2023 FINDINGS: Exam somewhat limited by motion. CT Head W/O and W contrast: Ventricles and Extra axial spaces: Normal in size and morphology for the patient's age. Hemorrhage: Focal area of increased attenuation in the posterior right occipital lobe there findings could represent artifact from skull versus acute hemorrhage. Cerebral parenchyma: Large old right MCA infarct. No evidence of acute infarct or mass. Midline shift: None. Brainstem/Cerebellum: No acute findings.. Calvarium: Normal. Visualized Paranasal sinuses/Mastoids: Mucous retention floors of maxillary sinuses. Soft Tissues: Unremarkable. Enhancement: Normal. CTA Brain W: Internal Carotid Arteries: Petrous: Normal. Cavernous: Normal. Cerebral: Normal. Middle Cerebral Arteries: Right: Occlusion steer M2 branch again noted. No new areas of occlusion. No aneurysm. Left: No aneurysm, occlusion or significant stenosis. Anterior Cerebral Arteries: Right: No aneurysm, occlusion or significant stenosis. Left: No aneurysm, occlusion or significant stenosis. Posterior cerebral Arteries: Right: No aneurysm, occlusion or significant stenosis. Left: No aneurysm, occlusion or significant stenosis. Vertebral Arteries: Right: No aneurysm, occlusion or significant stenosis. Left: No aneurysm, occlusion or significant stenosis. Basilar Artery: No aneurysm, occlusion or significant stenosis. CTA Neck W: Common Carotid: Right: Minimal plaque at bulb. No dissection, occlusion or significant stenosis. Left: [id number] plaque at bulb. No dissection, occlusion or significant stenosis. External Carotid: Right: No dissection, occlusion or significant stenosis. Left: No dissection, occlusion or significant stenosis. Internal Carotid: Right: Minimal plaque proximal. No dissection, occlusion or significant stenosis. Left: Minimal plaque proximally. No dissection, occlusion or significant stenosis. Vertebral Artery: Right: No dissection, occlusion or significant stenosis. Left: No dissection, occlusion or significant stenosis. Lung Apices: Normal. Bones: No acute abnormality. Prominent bridge osteophytes projecting anteriorly, consistent with DISH . Soft Tissues: Normal. IMPRESSION: 1. CTA brain: Occlusion of the posterior right M2 branch again noted. No new occlusion or significant stenosis. No evidence of aneurysm. 2. Head CT: Question of area of hemorrhage in posterior right occipital lobe versus artifact related to motion. Large old right MCA infarct. 3. CTA neck: Plaque in the bilateral internal carotid arteries with less than 50 percent stenosis. RADIATION DOSE DELIVERED: 2,607.83mGy.cm Total DLP DATA REPOSITORY: All CT scans at this facility are submitted to the National Radiology Data Registry (NRDR) Dose Index Registry (DIR) with the [employer] (ACR). RADIATION OPTIMIZATION: All CT scans at this facility use at least one of these dose optimization te chniques: automated exposure control; mA and/or kV adjustment per patient size (includes targeted exa ms where dose is matched to clinical indication); or iterative reconstruction.
--- NOTE | 2023-09-02 03:00 | RT.EKG_ITS ---
APPROVED REPORT Exam: Resting ECG Reason for Exam: weakness Patient Location: E HR:80 bpm ECG Measurements Heart Rate 80 AXIS OR 220 P 58 QRSd 89 QRS 32 QT 371 T 10 QTc 428 Conclusion Sinus rhythm...normal P axis, V-rate 60- 99 Prolonged OR interval...OR >220, V-rate 50- 90 Physician: no stemi
[2023-09-02] MEDS: Normal Saline 500 ML IV (03:20)
[2023-09-02 03:23] LABS: BE (Venous) 3 mmol/L (-2-3); HCO3 (Venous) 29 mmol/L (23-28); O2 Sat (Venous) 73 %; TCO2 (Venous) 26 mmol/L (24-29); pCO2 (Venous) 51 mmHg (41-51); pH (Venous) 7.35 (7.31-7.41); pO2 (Venous) 42 mmHg
--- NOTE | 2023-09-02 03:25 | ED.GENADUL_ITS ---
HPI General Stated Complaint: AMS/LOC RAMILA: 2 Date/Time Provider Initiated Documentation: 09/02/23 03:03. HPI Narrative: This is a 67-year-old male with a past medical history of previous stroke x 2, currently on Eliquis, chronic left-sided deficits, on Depakote and Keppra for seizures, diabetes type 2, who presents today for multiple falls, weakness, confusion. Family states that since Saturday morning which was over 36 hours ago he began to be weaker than normal, and had multiple falls. He did hit his head. This confusion and weakness continued, over the last 24 hours he has not had any urinary movements. Family states that this is not his norm. His seizures are not usually tonic-clonic but instead involve facial abnormalities. Family has not noticed this specifically. He has been taking his medications as directed. No other complaints at this time. Symptoms are slightly different than previous strokes that he has had. Related Data Home Medications Medication Instructions Recorded Confirmed metoprolol succinate 200 mg 200 mg PO DAILY 03/20/13 09/02/23 tablet,extended release 24 hr (Toprol XL) atorvastatin 40 mg tablet 40 mg PO DAILY 02/25/18 09/02/23 metformin 500 mg tablet,extended 1,000 mg PO DAILY 02/25/18 09/02/23 release 24hr (osmotic) morphine 15 mg tablet,extended 15 mg PO DAILY 07/30/18 09/02/23 release folic acid 1 mg tablet 1 mg PO DAILY 04/17/19 09/02/23 aspirin 81 mg tablet,delayed 81 mg PO DAILY 05/01/19 09/02/23 release (Adult Low Dose Aspirin) hydroxyzine HCl 50 mg tablet 100 mg PO HS 07/20/20 09/02/23 losartan 50 mg tablet 50 mg PO DAILY 07/20/20 09/02/23 apixaban 5 mg tablet (Eliquis) 5 mg PO BID #60 tabs 05/31/23 09/02/23 cyanocobalamin (vitamin B-12) 1,000 mcg PO DAILY 05/31/23 09/02/23 1,000 mcg tablet hydrocodone 10 mg-acetaminophen 2 tab PO Q6H PRN 05/31/23 09/02/23 325 mg tablet pantoprazole 40 mg tablet,delayed 40 mg PO DAILY 05/31/23 09/02/23 release polyethylene glycol 3350 17 gram 17 g PO DAILY PRN PRN Constipation 05/31/23 09/02/23 oral powder packet #0 ea pregabalin 50 mg capsule 100 mg PO BID 05/31/23 09/02/23 ropinirole 1 mg tablet 1 mg PO ONCE PRN 05/31/23 09/02/23 divalproex 250 mg tablet,delayed 250 mg PO BID #60 tabs 07/18/23 09/02/23 release (Depakote) furosemide 20 mg tablet 20 mg PO DAILY 07/18/23 09/02/23 levetiracetam 750 mg tablet See Rx Instructions PO Q12H #450 07/18/23 09/02/23 tabs venlafaxine 75 mg capsule,extended 75 mg PO DAILY 07/18/23 09/02/23 release 24 hr pramipexole 0.5 mg tablet 1 mg PO QPM 09/02/23 09/02/23 pregabalin 100 mg capsule 100 mg PO BID 09/02/23 09/02/23 Previous Rx's Medication Instructions Recorded apixaban 5 mg tablet (Eliquis) 5 mg PO BID #60 tabs 05/31/23 polyethylene glycol 3350 17 gram 17 g PO DAILY PRN PRN Constipation 05/31/23 oral powder packet #0 ea divalproex 250 mg tablet,delayed 250 mg PO BID #60 tabs 07/18/23 release (Depakote) levetiracetam 750 mg tablet See Rx Instructions PO Q12H #450 07/18/23 tabs Allergies Allergy/AdvReac Type Severity Reaction Status Date / Time hydromorphone [From Dilaudid] Allergy Severe Nausea Verified 09/02/23 03:06 hydrochlorothiazide Allergy Mild Other (See Unverified 09/02/23 03:06 Comment) lisinopril Allergy Mild Other (See Unverified 09/02/23 03:06 Comment) Penicillins Allergy Unknown as child Unverified 09/02/23 03:06 unsure of reaction Review of Systems All systems reviewed & are unremarkable except as noted in HPI and below PFSH All Active Problems (Updated 09/02/23 @ 06:01 by Rodrigo Martin DO) Intraparenchymal hemorrhage of brain (Acute) Alcohol intoxication (Acute) Encephalopathy (Acute) Acute stroke due to occlusion of right middle cerebral artery (Acute) Peripheral neuropathy (Acute) Osteoarthritis of left knee (Acute) Osteoarthritis of right knee (Acute) Rodgers's esophagus (Acute ~08/2020) Tubulovillous adenoma (Acute ~08/2020) Gastritis (Acute) Post laminectomy syndrome (Acute) Right lumbar radiculitis (Acute) Back pain (Acute) Tubular adenoma of colon (Acute 09/30/17) History of CVA (cerebrovascular accident) (Acute) Seizure (Acute) Last seizure 2019 Hypomagnesemia (Acute) Focal (motor) epilepsy (Acute) Barretts esophagus (Chronic) HTN (hypertension) (Chronic) Diabetes mellitus (Chronic) Medical History Leg edema, right History of paresthesia Vitamin B12 deficiency Hypocalcemia DISH (diffuse idiopathic skeletal hyperostosis) Hip pain, right Hx of adenomatous colonic polyps Morbid obesity Tobacco use Depression Vitamin B1 deficiency Fatty infiltration of liver Insomnia Hx of deep venous thrombosis Hx of gastric ulcer EVIE (obstructive sleep apnea) PSG 2014; severe EVIE with nocturnal hypoxemia; intolerant of CPAP Elevated TSH Hyperlipidemia CAD (coronary artery disease) COPD (chronic obstructive pulmonary disease) Lumbar back pain Low testosterone Neck pain Surgical History History of colonoscopy (~09/09/20) Post-laminectomy syndrome H/O vasectomy S/P repair of hydrocele EGD - MAC (09/30/17) Colonoscopy - MAC (09/30/17) Family History Mother Cancer Granddaughter Epilepsy Social History Smoking/Tobacco Use Status: Current every day Counseling given: counseling >10 minutes Smoking risk assessment performed?: Yes Alcohol Intake: current Alcohol Intake frequency: 3 or more drinks per day Drug use: Rarely Substance use type: marijuana Household members: spouse Housing: apartment Number of Children: 3 current occupation: Disabled. Formerly in construction What type of physical activity do you participate in: none Do you feel safe at home: Yes Do you feel safe in your relationship?: Yes PAWSS Have you Been Recently Intoxicated or Drunk Within the Last 30 days?: No Have you Ever Experienced Previous Episodes of Alcohol Withdrawal?: No Have you ever Experienced Withdrawal Seizures?: No Have you ever Experienced Delirium Tremens(DT)s?: No Have you ever undergone Alcohol Rehabilitation Treatment (i.e, inpt ot outpatient treatment programs)?: No Have you ever Experienced Blackouts?: No Have you ever Combined Alcohol with other Downers within the last 90 days?: No Have you ever Combined Alcohol with any other Substance of Abuse during the last 90 days?: No Positive Blood Alcohol level on Presentation? [PCS.BAL]: No Evidence of Increased Autonomic Activity (i.e. HR>120, tremor, sweating, agitation, nausea)?: No Result: 0 Exam Narrative Exam Narrative: 1.Const: Well-nourished, Well-developed, appearing stated age 2.Eyes: PERRL, no conjunctival injection, and symmetrical lids. 3.ENT: Atraumatic external nose and ears. Moist MM. Neck: Symmetric, trachea midline, No thyromegaly. 4.CVS: +S1/S2, No murmurs or gallops. Peripheral pulses 2+ and equal in all extremities. Brisk capillary refill in all extremities. 5.RESP: Unlabored respiratory effort. Clear to auscultation bilaterally. No wheezes rales or rhonchi 6.GI: Soft, Nontender/Nondistended, No hepatosplenomegaly. No guarding or rebound. 7.MSK: Normocephalic/Atraumatic, Extremities w/o deformity or ttp No cyanosis or clubbing, 5 out of 5 strength for the upper and lower extremities. No gross dysdiadochokinesia or dysmetria. 8.Skin: Warm, Dry. No rashes or lesions. 9.Neuro: beater out leveling machine II-XII grossly intact. Sensation grossly intact, no focal neurologic deficits. Patient does demonstrate a slow and labored speech. How ever no dysarthria or aphasia. 10.Psych: (AAO) x3. Patient also appears mildly intoxicated. Course Vital Signs Vital signs: Vital Signs Temperature 36.4 C L 09/02/23 02:59 Pulse 83 09/02/23 02:59 Respiratory Rate 20 09/02/23 02:59 Blood Pressure 137/61 09/02/23 02:59 Pulse Oximetry 96 09/02/23 02:59 Temperature 36.4 C L 09/02/23 03:21 Temperature Source Temporal Artery Scan 09/02/23 03:21 Pulse 83 09/02/23 03:21 Respiratory Rate 20 09/02/23 03:21 Respiratory Effort Normal, Non-Labored 09/02/23 03:15 Blood Pressure 137/61 09/02/23 03:21 Blood Pressure Position Supine 09/02/23 03:21 Pulse Oximetry 96 09/02/23 03:21 Oxygen Delivery Method Room Air 09/02/23 03:21 Oxygen Flow Rate 0 09/02/23 02:59 Lab/Test Results Lab/Test Results: Laboratory Tests Range/Units 09/02/23 03:15 VBG pH (7.31-7.41) 7.35 VBG pCO2 (41-51) mmHg 51 VBG pO2 mmHg 42 VBG HCO3 (23-28) mmol/L 29 H VBG Total CO2 (24-29) mmol/L 26 VBG O2 Saturation % 73 VBG Base Excess (-2-3) mmol/L 3 Medical Decision Making This is a 67-year-old male with a past medical history of previous stroke x 2, currently on Eliquis, chronic left-sided deficits, on Depakote and Keppra for seizures, diabetes type 2, who presents today for multiple falls, weakness, confusion. Family states that since Saturday morning which was over 36 hours ago he began to be weaker than normal, and had multiple falls. He did hit his head. This confusion and weakness continued, over the last 24 hours he has not had any urinary movements. Family states that this is not his norm. His seizures are not usually tonic-clonic but instead involve facial abnormalities. Family has not noticed this specifically. He has been taking his medications as directed. No other complaints at this time. Symptoms are slightly different than previous strokes that he has had. Patient does admit to drinking a few alcoholic beverages this evening. Exam does not demonstrate any clear focal deficit, however speech appears slow and bit labored, family states that he is definitely not at his baseline. He demonstrates normal strength throughout, and no focal deficit however his interactions appear to be sluggish globally. No signs of focal trauma. No hemotympanums. Unfortunately the patient also smells of alcohol, and intoxication certainly muddles the differential specificity. Differential includes bleed secondary to fall, infection, stroke that is ischemic, cardiac etiology less likely. Will evaluate for these etiologies, monitor closely and reassess. 5:08 AM Laboratory workup benign, pending alcohol level. Electrolytes normal, VBG stable. Glucose 216. Troponin normal. Thyroid function normal. Valproic acid level is 23. CT of the chest abdomen pelvis demonstrates no acute process. CT scan of the brain demonstrates evidence of a hyperattenuation within the right occipital lobe concerning for a small focal hemorrhage. No other signs of shift or other abnormalities. Alcohol level has returned and it is 120 5:53 AM Discussed the case with Dr. Stanley of neurosurgery, she feels that the bleed is notably minimal, potentially secondary to the encephalomalacia area that might of had a small hypertensive episode and subsequent bleed. She does not recommend reversal at this time, but does recommend holding anticoagulation. Discussed the case with neurology Dr. Espinal, who agrees with those recommendations, additional recommendations are to get a repeat CAT scan in 6 hours. I did discuss these recommendations with the patient and the patient's was at bedside, patient got extremely upset when he heard that he had to stay for few more hours for repeat CAT scan. I discussed with him the findings, including the bleed, the risk of worsening, the risk of potential and even longer in greater disability in addition to what has already occurred. Understanding this the patient refuses to stay. Stating I am going to get the hell out of here, and you cannot stop me. You better ribs this IV out of my arm right now or also I will punch you in the face and break your nose. We spent 20 minutes with the patient trying to reason with him, but he was unwilling to change his mind. Additionally his attempted to reason with him and this was notably unsuccessful. I did take the aside and described my high level of concern that this was notably unsafe and unwise to leave. She understands this. We then discussed the 3 options, during this conversation the patient was being non-physically held at the door by security and staff standing in his way from exiting. I discussed with the that the options were to a) verbally convince the patient to wait with us and stay (which had failed) b) physically restrain the patient and keep him here as his behaviors were getting more threatening, and more aggressive towards staff c) chemically restrain the patient with pharmaceuticals to put him in a partially sedated state d) the least ideal scenario would be to allow her the and his power of tax associate attorney to assume risk and responsibility for him and take him with her home. After a long discussion about this and my multiple attempts to make unequivocally clear the danger that going home would potentially have, and the benefits with the other steps, the has decided to assume responsibility for her , and take him home. Understanding this, and in the presence of 1 microbiological lab technician, 2 nurses, and myself the patient and the decided on option D, the signed the AMA form understanding the risks that this entails, and left to go home. stated that she will continue to try to convince her to come back for the repeat CAT scan. Additionally our recommendations were to not restart the anticoagulant medication until repeat CAT scan was performed. Patient left AMA FINDINGS: ANTERIOR CIRCULATION: Right internal carotid artery: Intracranial segment is patent with no significant stenosis. No aneurysm. Right middle cerebral artery: No acute occlusion or significant stenosis. Persistent nonvisualization of the posterior branch of the right M2 segment. No aneurysm. Right anterior cerebral artery: No occlusion or significant stenosis. No aneurys m. Left internal carotid artery: Intracranial segment is patent with no significant stenosis. No aneurysm. Left middle cerebral artery: No occlusion or significant stenosis. No aneurysm. Left anterior cerebral artery: No occlusion or significant stenosis. No aneurysm. POSTERIOR CIRCULATION: Right vertebral artery: No occlusion or significant stenosis. No aneurysm. Left vertebral artery: No occlusion or significant stenosis. No aneurysm. Basilar artery: No occlusion or significant stenosis. No aneurysm. Right posterior cerebral artery: No occlusion or significant stenosis. No aneurysm. Left posterior cerebral artery: No occlusion or significant stenosis. No aneurysm. Brain: No definite mass, mass effect, or midline shift. Remote right MCA territory infarct. There is a focus of hyperattenuation within the right occipital lobe (series 10, image 146). Findings are concerning for focal hemorrhage. Cerebral ventricles: No ventriculomegaly. Bones/joints: Unremarkable. No acute fracture. Soft tissues: Unremarkable. IMPRESSION: 1. No evidence of acute major vascular occlusion. 2. There is a focus of hyperattenuation within the right occipital lobe (series 10, image 146). Findings are concerning for focal hemorrhage. 3. Remote right MCA territory infarct. FINDINGS: Right common carotid artery: Atherosclerotic plaque within the carotid bulb. No stenosis. No dissection or occlusion. Right internal carotid artery: Mild proximal atherosclerotic plaque. No stenosis of the extracranial segment. No dissection or occlusion. Right external carotid artery: No occlusion or stenosis of the origin. Left common carotid artery: Atherosclerotic plaque within the carotid bulb. No stenosis. No dissection or occlusion. Left internal carotid artery: Mild proximal atherosclerotic plaque. No stenosis of the extracranial segment. No dissection or occlusion. Left external carotid artery: No occlusion or stenosis of the origin. Right vertebral artery: No stenosis. No dissection or occlusion. Left vertebral artery: No stenosis. No dissection or occlusion. Soft tissues: Normal. No significant soft tissue swelling. Bones/joints: No acute fracture. IMPRESSION: Less than 50% stenosis within the internal carotid artery bilaterally. REFERENCES: NASCET CRITERIA. The degree of stenosis in the cervical segment of the internal carotid artery is based on NASCET criteria. Normal is no stenosis. Mild is less than 50% stenosis. Moderate is 50- 69% stenosis. Severe is 70% to 99% stenosis. Total occlusion is no detectable patent lumen. Thank you for allowing us to participate in the care of your patient. Dictated and Authenticated by: Mike Briceon MD 09/02/2023 4:49 AM Eastern Time ([place] & [place]) FINDINGS: Limitations: Mild motion artifact. Lungs: Dependent changes are present in the lungs. Pleural spaces: No pleural effusion. Heart: No pericardial effusion. Coronary arteries: Coronary artery calcifications. Mediastinal space: Mild esophageal thickening, most pronounced in the mid to distal esophagus. Lymph nodes: No acute abnormality. Vasculature: Arterial calcifications. Bones/joints: CT scan of the thoracic spine dictated separately. Soft tissues: No acute pertinent abnormality appreciated. IMPRESSION: 1. No acute internal thoracic injury appreciated, within the limitations noted above. 2. Esophageal thickening. Consider esophagitis, neoplasm. 3. Additional studies dictated separately. FINDINGS: Limitations: No contrast was administered, limiting evaluation for some pathologies. Lungs: CT scan of the chest dictated separately. Liver: Contour irregularity in the liver. Correlate clinically for history of chronic liver disease/cirrhosis. Gallbladder and bile ducts: No radiodense gallbladder calculi seen. Pancreas: Fatty infiltration of the pancreas. Spleen: No splenomegaly. Adrenal glands: No mass. Kidneys and ureters: Residual contrast in the renal collecting systems. No hydronephrosis. Stomach and bowel: No evidence for intestinal obstruction or perforation. Retain ed fecal material is present in the colon. Appendix: No evidence of appendicitis. Intraperitoneal space: No free air. Vasculature: Extensive arterial calcifications. Lymph nodes: No acute findings. Urinary bladder: No acute findings. Reproductive: No acute findings. Bones/joints: CT scan of the lumbar spine dictated separately Soft tissues: Small fat containing inguinal hernias. IMPRESSION: 1. No acute internal injury appreciated in the abdomen or pelvis, within the limitations noted above. 2. Nonacute findings as outlined above. 3. Additional studies dictated separately. Thank you for allowing us to participate in the care of your patient. Dictated and Authenticated by: Tram Gonzalez MD 09/02/2023 4:32 AM Eastern Time ([place] & [place]) FINDINGS: Bones/joints: No acute thoracic spine fracture identified. Degenerative changes throughout the thoracic spine. Suspect diffuse idiopathic spinal hyperostosis. Multilevel bridging osteophytes. Soft tissues: Soft tissue algorithm images are not submitted. Other findings: CT scan of the chest dictated separately. IMPRESSION: 1. No acute thoracic spine fracture identified. 2. Additional findings as described on report for additional studies dictated separately. FINDINGS: Bones/joints: No acute lumbar spine fracture identified. Degenerative changes throughout the lumbar spine. At L2-L3 there is moderate right foraminal and marked canal narrowing. At L3-L4 there is marked right foraminal narrowing and marked canal narrowing. At L4-L5 there is marked right and moderate left foraminal narrowing and marked canal narrowing. At L5-S1 there is marked right foraminal narrowing and moderate left foraminal narrowing and marked canal narrowing. Please note that nerve root impingement cannot be excluded and spinal canal contents and nerve roots would be better evaluated with MRI. Suspect diffuse idiopathic spinal hyperostosis. Multilevel bridging osteophytes. Intraperitoneal space: CT scan of the abdomen and pelvis dictated separately. Soft tissues: Soft tissue algorithm images are not submitted. IMPRESSION: 1. No acute lumbar spine fracture identified. 2. Additional findings as described on report for additional studies dictated separately. Thank you for allowing us to participate in the care of your patient. Dictated and Authenticated by: Tram Gonzalez MD 09/02/2023 4:48 AM Eastern Time ([place] & [place]) Quality:SDOH Health Related Social Needs: No Data to Display Critical Care Time Critical Care Time Critical Care Time: Yes Total Critical Care Time: 45 Attestation: Upon my evaluation, this patient had a high probability of imminent or life- threatening deterioration, which required my direct attention, intervention, and personal management. I have personally provided 45 minutes of critical care time exclusive of time spent on separately billable procedures. Time includes review of laboratory data, radiology results, discussion with consultants, and monitoring for potential decompensation. Interventions were performed as documented. Discharge Plan Disposition Patient Disposition: Against Medical Advice Discharge Details Chief Complaint: AMS/LOC Clinical Impression: Alcohol intoxication, Intraparenchymal hemorrhage of brain Primary Care Provider: Lora Glasgow ED Provider: Rodrigo Martin Home Meds and New Rx's Prescriptions: No Action morphine 15 mg tablet extended release 15 mg PO DAILY furosemide 20 mg tablet 20 mg PO DAILY venlafaxine 75 mg capsule,extended release 24hr 75 mg PO DAILY Patient Comments: TAKE ONE CAPSULE BY MOUTH EVERY DAY +REPLACES FLUOXETINE+ levetiracetam 750 mg tablet See Rx Instructions PO Q12H Qty: 450 3RF Rx Instructions: 2250mg in am and 1500mg HS orally every 12 hours; divalproex [Depakote] 250 mg tablet,delayed release (DR/EC) 250 mg PO BID Qty: 60 5RF aspirin [Adult Low Dose Aspirin] 81 mg tablet,delayed release (DR/EC) 81 mg PO DAILY metoprolol succinate [Toprol XL] 200 MG tablet extended release 24 hr 200 mg PO DAILY atorvastatin 40 MG tablet 40 mg PO DAILY metformin 500 MG tablet extended release 24hr 1,000 mg PO DAILY Patient Comments: 02/25/18 takes only 1 tab when he feels like it --sgl folic acid 1 mg Tablet 1 mg PO DAILY losartan 50 mg tablet 50 mg PO DAILY hydroxyzine HCl 50 mg tablet 100 mg PO HS Patient Comments: TAKE ONE TABLET BY MOUTH AT BEDTIME ropinirole 1 mg tablet 1 mg PO ONCE PRN Patient Comments: TAKE ONE TO FOUR TABLETS BY MOUTH ONCE DAILY FOR RESTLESS LEGS; MAY TITRATE UP TO 4MG DAILY cyanocobalamin (vitamin B-12) 1,000 mcg tablet 1,000 mcg PO DAILY Patient Comments: TAKE ONE TABLET BY MOUTH EVERY DAY pantoprazole 40 mg tablet,delayed release (DR/EC) 40 mg PO DAILY Patient Comments: TAKE ONE TABLET BY MOUTH EVERY DAY hydrocodone-acetaminophen 10-325 mg tablet 2 tab PO Q6H PRN Patient Comments: TAKE TWO TABLETS BY MOUTH EVERY 6 HOURS NEEDED +MAX 7 TABLETS PER DAY+ pregabalin 50 mg capsule 100 mg PO BID Rx Instructions: TAKE 1 CAPSULE IN THE MORNING AND 2 CAPSULES AT BEDTIME polyethylene glycol 3350 17 gram Powder In Packet 17 g PO DAILY PRN PRN (Reason: Constipation) Qty: 0 0RF Eliquis 5 mg Tablet 5 mg PO BID Qty: 60 0RF pregabalin 100 mg capsule 100 mg PO BID Patient Comments: TAKE ONE CAPSULE BY MOUTH TWICE A DAY pramipexole 0.5 mg tablet 1 mg PO QPM Patient Comments: TAKE ONE TABLET BY MOUTH IN THE EVENING
[2023-09-02 03:27] LABS: Abs Immature Grans 0.02 10^3/uL (0.0-0.06); Absolute Basophil Count 0.05 10^3/uL (0.0-0.2); Absolute Eosinophil Count 0.21 10^3/uL (0.0-0.7); Absolute Lymphocyte Count 2.85 10^3/uL (1.2-3.4); Absolute Monocyte Count 0.69 10^3/uL (0.1-0.8); Absolute Neutrophil Count 2.76 10^3/uL (1.2-6.7); Basophils % 0.8; Eosinophils % 3.2; HCT 38.1 % (40.0-50.0); HGB 12.8 g/dL (13.5-17.5); Immature Grans % 0.3; Lymphocytes % 43.3; MCH 30.2 pg (27.0-33.0); MCHC 33.6 % (32.0-36.0); MCV 90 fL (80-95); MPV 11.1 fL (8.0-11.0); Monocytes % 10.5; Neutrophils % 41.9; Platelet Count 140 10^3/uL (130-400); RBC 4.24 10^6/uL (4.36-5.78); RDW 12.8 % (11.8-14.1); RDW-SD 42.2 fL; WBC 6.58 10^3/uL (4.4-10.8)
[2023-09-02] MEDS: Omnipaque 350 MG/ML 100 ML BTL IJ (03:28)
[2023-09-02] MEDS: Normal Saline - Diluent 50 ML VIAL IJ (03:28)
[2023-09-02] MEDS: Normal Saline Flush 10 ML SYR IVP (03:29)
[2023-09-02 03:37] LABS: PTT Activated 27.2 sec (23.6-32.8)
[2023-09-02 03:38] LABS: INR 1.5 (0.9-1.1)
[2023-09-02 03:55] LABS: ALT 30 U/L (16-63); AST 37 U/L (15-37); Albumin 3.1 g/dL (3.4-5.0); Alkaline Phosphatase 108 U/L (46-116); Anion Gap 8.6 mmol/L (3-11); BUN 17 mg/dL (7-18); Bilirubin, Total 0.4 mg/dL (0.2-1.0); CO2 29.4 mmol/L (21.0-32.0); CREATININE 1.3 mg/dL (0.70-1.30); Calcium 8.7 mg/dL (8.5-10.1); Chloride 105 mmol/L (98-107); Estimated GFR 60.96 (mL/min/1.73m2); Glucose 216 mg/dL (74-106); Potassium 4.1 mmol/L (3.5-5.1); Sodium 143 mmol/L (136-145); TSH (W/Ref FT4) 3.03 uIU/mL (0.36-3.74); Total Protein 6.6 g/dL (6.4-8.2); Troponin I < 50 ng/L (< or =60)
[2023-09-02 04:06] LABS: VALPROIC ACID 23.8 ug/mL
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
[2023-09-02 05:12] LABS: ETHANOL BLOOD 120.5 mg/dL (<10)
[2023-09-02 05:45] LABS: Bilirubin Negative (Negative); Blood Negative (Negative); Clarity Clear (Clear); Glucose 500 mg/dL (Negative); Ketones 15 mg/dL (Negative); Leukocyte Esterase Negative (Negative); Nitrite Negative (Negative); Specific Gravity 1.015 (1.005-1.025); Urobilinogen 0.2 mg/dL (Up to 0.2); pH 5.5 (5-8)
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
== END 2023-09-02 06:08 | disposition left against medical advice (07) ==
PROVIDERS: Emergency Provider Student in an Organized Health Care Education/Training Program; PCP Family Medicine
DX: I61.8 Other nontraumatic intracerebral hemorrhage (principal); I69.354 Hemiplegia and hemiparesis following cerebral infarction affecting left non-dominant side; I25.10 Atherosclerotic heart disease of native coronary artery without angina pectoris; J44.9 Chronic obstructive pulmonary disease, unspecified; E78.5 Hyperlipidemia, unspecified; G40.909 Epilepsy, unspecified, not intractable, without status epilepticus; F10.120 Alcohol abuse with intoxication, uncomplicated; E11.9 Type 2 diabetes mellitus without complications; Y90.5 Blood alcohol level of 100-119 mg/100 ml; Z53.29 Procedure and treatment not carried out because of patient's decision for other reasons; Z79.82 Long term (current) use of aspirin; Z79.4 Long term (current) use of insulin; Z79.01 Long term (current) use of anticoagulants; F17.210 Nicotine dependence, cigarettes, uncomplicated
CPT/HCPCS: 36415; 70496; 70498; 71250; 80053; 82805; 93005; 96360; 99285; 74176; 80164; 80185; 80320; 81003; 84443; 84484; 85025; 85610; 85730; 93010; 99284; J3490

== ENCOUNTER → 2023-09-17 08:19 | Outpatient (BNVA) | payer MEDICARE, SELFPAY | PROVIDERS: PCP Family Medicine; Visit Provider Psychiatry & Neurology Neurology | DX: G40.109 Localization-related (focal) (partial) symptomatic epilepsy and epileptic syndromes with simple partial seizures, not intractable, without status epilepticus (principal); G62.9 Polyneuropathy, unspecified; I63.511 Cerebral infarction due to unspecified occlusion or stenosis of right middle cerebral artery; G93.40 Encephalopathy, unspecified | CPT/HCPCS: 99215 ==

== ENCOUNTER 2023-09-20 18:09 | Outpatient (REF) | payer MEDICARE, SELFPAY ==
[2023-09-20 19:40] LABS: HCT 37.6 % (40.0-50.0); HGB 12.7 g/dL (13.5-17.5); MCH 30.2 pg (27.0-33.0); MCHC 33.8 % (32.0-36.0); MCV 90 fL (80-95); Platelet Count 137 10^3/uL (130-400); RDW 12.9 % (11.8-14.1); RDW-SD 42.6 fL
[2023-09-20 19:57] LABS: NT-proBNP 124 pg/mL (<300)
[2023-09-20 20:07] LABS: Hemoglobin A1C 7.8 % (<5.7)
[2023-09-20 20:41] LABS: Ferritin 104 ng/mL (26-388)
== END 2023-09-20 18:10 | disposition home or self-care (01) ==
LOC: NCHCN 18:09
PROVIDERS: PCP Family Medicine; Visit Provider Family Medicine
DX: D64.9 Anemia, unspecified (principal); E11.9 Type 2 diabetes mellitus without complications; R06.09 Other forms of dyspnea
CPT/HCPCS: 85027; 82728; 83036; 83880

== ENCOUNTER → 2023-12-17 06:49 | Outpatient (BNVA) | payer MEDICARE, SELFPAY | PROVIDERS: PCP Family Medicine; Referring Provider Family Medicine; Visit Provider Psychiatry & Neurology Neurology | DX: G40.109 Localization-related (focal) (partial) symptomatic epilepsy and epileptic syndromes with simple partial seizures, not intractable, without status epilepticus (principal); G62.9 Polyneuropathy, unspecified; I63.511 Cerebral infarction due to unspecified occlusion or stenosis of right middle cerebral artery; G93.40 Encephalopathy, unspecified | CPT/HCPCS: 99443 ==